=== PATIENT | male | born 1950 | race African-American/Black ===

== ENCOUNTER 2016-04-16 03:11 | Emergency (ER) | payer SELFPAY ==
[~2016-04-16] VITALS: Ht 170.2 cm; Wt 77.1 kg
[~2016-04-16 03:11] MED LIST: UNOBMED
[2016-04-16] MEDS ORDERED: GABAPENTIN300 MG ORAL (03:23)
--- NOTE | 2016-04-16 03:23 | Emergency Room Report ---
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 He said he takes [place] for his pain. He is homeless. Walking on the street and called 911. He told EMS that he has bilateral leg pain and his cold. Denies suicidal thought homicidal thought. Said that he take [place] but didn't have anything since this morning. No trauma. Pain is 10 out of 10. Bilateral lower extremity from hip to feet. Denies any nausea vomiting. Denies any trauma. Denies any fever or chills. Allergies: Coded Allergies: No Known Allergies (Unverified , 07/27/12) Patient History Past Medical History: see triage record, old chart reviewed Past Surgical History: other Pertinent Family History: none Social History: Reports: smoking Immunizations: other Reviewed Nursing Documentation: PMH: Agreed, PSxH: Agreed Review of Systems Eye: Denies: blurred vision, eye pain ENT: Denies: ear pain, nose congestion, throat swelling Respiratory: Denies: cough, shortness of breath Cardiovascular: Denies: chest pain, palpitations Gastrointestinal: Denies: abdominal pain, diarrhea, nausea, vomiting Musculoskeletal: Reports: joint pain, muscle pain, Denies: back pain Skin: Denies: rash Neurological: Denies: headache, numbness Endocrine: Denies: increased thirst, increased urine Hematologic/Lymphatic: Denies: easy bruising All Other Systems: negative except mentioned in HPI Physical Exam vitals unremarkable Sp02 EP Interpretation: reviewed, normal General Appearance: well appearing, no apparent distress, alert Head: normocephalic, atraumatic Eyes: bilateral eye EOMI, bilateral eye PERRL ENT: hearing grossly normal, normal pharynx Neck: full range of motion, supple, no meningismus Respiratory: chest non-tender, lungs clear, normal breath sounds Cardiovascular #1: regular rate, rhythm, no murmur Gastrointestinal: normal bowel sounds, non tender, no mass, no organomegaly, no bruit, non-distended Musculoskeletal: back normal, gait/station normal, normal range of motion Neurologic: alert, oriented x3 Psychiatric: mood/affect normal Skin: warm/dry Medical Decision Making Diagnostic Impression: Primary Impression: Peripheral neuropathy Qualified Codes: G62.9 - Polyneuropathy, unspecified Additional Impression: Opiate addiction Qualified Codes: F11.20 - Opioid dependence, uncomplicated ER Course Patient presents with exacerbation of chronic pain. No evidence of trauma. Patient walking without difficulty. We'll discharge home. Status: improved Disposition: HOME, SELF-CARE Condition: Stable Scripts Gabapentin* (GABAPENTIN*) 300 Mg Capsule 300 MG ORAL THREE TIMES A DAY, #30 CAP 0 Refills Prov: JACOB SANFORD M.D. 04/16/16 Additional Instructions: Followup with your Dr. in 7 days. Return if symptom worsen. JACOB SANFORD M.D. Apr 16, 2016 03:23
[2016-04-16] MEDS ORDERED: Norco 5mg/325mg tab ORAL ONE (03:30)
[2016-04-16 03:47] VITALS: BP 142/72
[2016-04-16 03:48] VITALS: BP 142/72
== END 2016-04-16 03:51 | disposition home or self-care (01) ==
LOC: EDUNIT# 03:11 → EDBD 03:11 → EMR 03:18
DX: G62.9 Polyneuropathy, unspecified (principal); F11.20 Opioid dependence, uncomplicated; F17.200 Nicotine dependence, unspecified, uncomplicated; Z59.0 Homelessness
CPT/HCPCS: 99283

== ENCOUNTER 2016-08-22 09:56 | Inpatient (IN) | payer MEDICARE, OTHER ==
[~2016-08-22] VITALS: Ht 170.2 cm; Wt 81.2 kg
[2016-08-22] VITALS (7 sets, daily range): BP systolic 114–162; BP diastolic 42–71
[~2016-08-22 09:56] MED LIST changes: +GABAPENTIN300 MG ORAL; +NKM
[2016-08-22] MEDS ORDERED: Cefepime HCl 1 GM in NS 55 ML IV STA (10:04)
[2016-08-22] MEDS ORDERED: Vancomycin 1 GM in NS 275 ML IV ONE (10:15)
[2016-08-22] MEDS ORDERED: Lidocaine 1% MPF 10mg/ml 5ml INJ ONE (10:15)
--- NOTE | 2016-08-22 10:31 | Emergency Room Report ---
History of Present Illness General Chief Complaint: Upper Extremity Injury Source: Patient, EMS Present Illness HPI Patient presents with right middle finger pain. This began several days ago. He thinks he might have gotten bitten by a bug. Denies any fevers or chills. Pain is severe and radiates somewhat into his hand. The finger is deformed it is unable to bend it much at this time. Denies any diabetes or any other chronic medical problems. He does drink alcohol occasionally. He states his tetanus was last given one year ago. No drainage. States no numbness. No trauma. He denies other pain in his body to me, but reports chronic hip pain from arthritis. No chest pain, NVD, head ache, dysuria. No other skin rashes. Blind in R eye. Allergies: Coded Allergies: No Known Allergies (Unverified , 07/27/12) Patient History Past Medical History: see triage record Social History: Reports: alcohol use Social History Narrative on streets, but has family in [place] Immunizations: UTD Reviewed Nursing Documentation: PMH: Agreed, PSxH: Agreed Nursing Documentation-PMH Hx Neurological Problems: Yes - Neuropathy, OS blindness 1995 Review of Systems All Other Systems: negative except mentioned in HPI Physical Exam Vital Signs Date Time Temp Pulse Resp B/P Pulse Ox O2 Delivery O2 Flow Rate FiO2 08/22/16 09:46 97.7 72 16 171/62 97 Sp02 EP Interpretation: reviewed, normal General Appearance: no apparent distress, GCS 15, other - dishevelled Head: normocephalic Eyes: right eye other - cataract deformity, bilateral eye Scleral Injection ENT: moist mucus membranes Neck: supple Respiratory: lungs clear, normal breath sounds Cardiovascular #1: regular rate, rhythm Cardiovascular #2: 2+ radial (R) Gastrointestinal: normal inspection, normal bowel sounds, non tender, no mass, non-distended Musculoskeletal: back normal, gait/station normal, normal range of motion - except for middle and ring fingers of R hand - DJD ring finger, swelling - middle finger most prominent dorsally, no pulp tenderness Neurologic: alert, oriented x3, motor strength/tone normal, DTRs symmetric, sensory intact, speech normal Psychiatric: depressed affect Skin: warm/dry, other - abscess formation R middle finger dorsally, but also under nail Procedures Incision and Drainage Incision and Drainage : Consent: Written Blade Size: scissors to remove nail I & D Procedure: betadine prep, sterile drapes applied, sterile dressing applied, gauze wick placed Wound's Depth, Shape: superficial - and under nail Wound Explored: contaminated Anesthesia: 1% Lidocaine Volume Anesthetic (ccs): 5 Splint Applied?: No Patient Tolerated: Well Complications: None Progress Digital block after Betadine prep of finger (previously cleaned by RN also). Incised under nail with pus expressed (nail completely undermined but infection and removed). Irrigated with copious NS under dorsal tissue. Drain placed. Tolerated well. Concern over dorsal tissue possibly devitalized by infection. Medical Decision Making Diagnostic Impression: Primary Impression: Abscess cellulitis of R middle finger Additional Impression: Abscess of finger of right hand ER Course Patient with R middle finger pain. Ddx: abscess, cellulitis, felon, paronychia , osteomyelitis, tendon infection. Exam somewhat against latter, though difficult to tell with pain in finger. Significant infection which needs drainage. Labs needed to r/o co-morbidities. Xray also ordered. IV antibiotics indicated. I and D performed. Labs significant for low WBC and ESR. Lactate normal. Xray without obvious osteo. Rest unremarkable. Contact hand surgeons. Also discussed with Dr. Curtis initially, then Dr. Ventura. Admit med, Dr. Ventura. Laboratory Tests Test 08/22/16 10:30 08/23/16 06:05 White Blood Count 6.5 K/UL (4.8-10.8) 4.3 K/UL (4.8-10.8) L Red Blood Count 4.82 M/UL (4.70-6.10) 4.66 M/UL (4.70-6.10) L Hemoglobin 11.6 G/DL (14.2-18.0) L 11.4 G/DL (14.2-18.0) L Hematocrit 37.4 % (42.0-52.0) L 35.4 % (42.0-52.0) L Mean Corpuscular Volume 78 FL (80-99) L 76 FL (80-99) L Mean Corpuscular Hemoglobin 24.1 PG (27.0-31.0) L 24.4 PG (27.0-31.0) L Mean Corpuscular Hemoglobin Concent 31.0 G/DL (32.0-36.0) L 32.1 G/DL (32.0-36.0) Red Cell Distribution Width 16.3 % (11.6-14.8) H 16.3 % (11.6-14.8) H Platelet Count 172 K/UL (150-450) 188 K/UL (150-450) Mean Platelet Volume 6.9 FL (6.5-10.1) 7.5 FL (6.5-10.1) Neutrophils (%) (Auto) 63.6 % (45.0-75.0) 51.4 % (45.0-75.0) Lymphocytes (%) (Auto) 19.9 % (20.0-45.0) L 31.5 % (20.0-45.0) Monocytes (%) (Auto) 15.2 % (1.0-10.0) H 15.8 % (1.0-10.0) H Eosinophils (%) (Auto) 0.5 % (0.0-3.0) 0.6 % (0.0-3.0) Basophils (%) (Auto) 0.9 % (0.0-2.0) 0.7 % (0.0-2.0) Erythrocyte Sedimentation Rate 12 MM/HR (0-20) Prothrombin Time 9.9 SEC (9.30-11.50) Prothrombin Time INR 0.9 (0.9-1.1) PTT 30 SEC (23-33) Urine Color Pale yellow Urine Appearance Clear Urine pH 5 (4.5-8.0) Urine Specific [place] 1.020 (1.005-1.035) Urine Protein Negative (NEGATIVE) Urine Glucose (UA) Negative (NEGATIVE) Urine Ketones Negative (NEGATIVE) Urine Occult Blood Negative (NEGATIVE) Urine Nitrite Negative (NEGATIVE) Urine Bilirubin Negative (NEGATIVE) Urine Urobilinogen Normal MG/DL (0.0-1.0) Urine Leukocyte Esterase Negative (NEGATIVE) Sodium Level 137 mEQ/L (135-145) Pending Potassium Level 3.7 mEQ/L (3.4-4.9) Pending Chloride Level 96 mEQ/L (98-107) L Pending Carbon Dioxide Level 24 mEQ/L (20-30) Pending Anion Gap 17 (5-15) H Blood Urea Nitrogen 19 mg/dL (7-23) Pending Creatinine 1.0 mg/dL (0.7-1.2) Pending Estimate Glomerular Filtration Rate > 60 mL/min (>60) Pending Glucose Level 98 mg/dL (74-106) Pending Lactic Acid Level 1.30 mmol/L (0.66-2.22) Calcium Level 8.8 mg/dL (8.6-10.2) Pending Total Bilirubin 0.3 mg/dL (0.0-1.2) Pending Aspartate Amino Transferase (AST) 48 U/L (5-40) H Pending Alanine Aminotransferase (ALT) 58 U/L (3-41) H Pending Alkaline Phosphatase 72 U/L (40-129) Pending Total Creatine Kinase 154 U/L (38-174) Troponin I < 0.30 ng/mL (<=0.30) Total Protein 7.9 g/dL (6.6-8.7) Pending Albumin 4.0 g/dL (3.5-5.2) Pending Globulin 3.9 g/dL Pending Albumin/Globulin Ratio 1.0 (1.0-2.7) EKG Diagnostic Results Rate: normal Rhythm: NSR ST Segments: no acute changes - LVH Rhythm Strip Diag. Results EP Interpretation: yes Rhythm: NSR, no PVC's, no ectopy Chest X-Ray Diagnostic Results Chest X-Ray Ordered: Yes # of Views/Limited/Complete: 1 View Interpretation: no consolidation, no effusion, no pneumothorax, no acute cardiopulmonary disease Indication: Other Impression: No acute disease Date Electronically Signed: Aug 22, 2016 Time Electronically Signed: 11:00 Other X-Ray Diagnostic Results # of Views/Limited Vs Complete: 3 View Interpretation: no fractures, no dislocation, other - STA and DJD Indication: Pain Impression: Other Date Electronically Signed: Aug 22, 2016 Time Electronically Signed: 11:00 Last Vital Signs Date Time Temp Pulse Resp B/P Pulse Ox O2 Delivery O2 Flow Rate FiO2 08/22/16 09:46 97.7 72 16 171/62 97 Status: improved Disposition: ADMITTED INPATIENT Condition: Serious Michael Badillo M.D. Aug 22, 2016 10:31
[2016-08-22 10:41] LABS: BASOPHILS % (AUTO) 0.9 % (0.0-2.0); EOSINOPHILS % (AUTO) 0.5 % (0.0-3.0); LYMPHOCYTES % (AUTO) 19.9 % (20.0-45.0); MEAN CORPUSCULAR HEMOGLOBIN 24.1 PG (27.0-31.0); MEAN CORPUSCULAR VOLUME 78 FL (80-99); MEAN PLATELET VOLUME 6.9 FL (6.5-10.1); MONOCYTES % (AUTO) 15.2 % (1.0-10.0); NEUTROPHILS % (AUTO) 63.6 % (45.0-75.0); PLATELET COUNT 172 K/UL (150-450); RED BLOOD COUNT 4.82 M/UL (4.70-6.10); RED CELL DISTRIBUTION WIDTH 16.3 % (11.6-14.8); WHITE BLOOD COUNT 6.5 K/UL (4.8-10.8)
[2016-08-22 10:48] LABS: APPEARANCE,URINE CLEAR; KETONES,URINE NEGATIVE (NEGATIVE); LEUKOCYTE ESTERASE ,URINE NEGATIVE (NEGATIVE); NITRITE,URINE NEGATIVE (NEGATIVE); PH,URINE 5 (4.5-8.0); PROTEIN,URINE NEGATIVE (NEGATIVE); UROBILINOGEN,URINE NORMAL MG/DL (0.0-1.0)
[2016-08-22 10:49] LABS: INR 0.9 (0.9-1.1); PROTHROMBIN TIME 9.9 SEC (9.30-11.50)
[2016-08-22] MEDS: metroNIDAZOLE 500mg 100 ML IV SCH ×2 (10:53→11:12)
[2016-08-22 10:54] LABS: ALANINE AMINOTRANSFERASE 58 U/L (3-41); ANION GAP 17 (5-15); ASPARTATE AMINO TRANSFERASE 48 U/L (5-40); CALCIUM 8.8 mg/dL (8.6-10.2); CARBON DIOXIDE 24 mEQ/L (20-30); CHLORIDE 96 mEQ/L (98-107); GLOMERULAR FILTRATION RATE > 60 mL/min (>60); HEMOLYSIS 4; POTASSIUM 3.7 mEQ/L (3.4-4.9); SODIUM 137 mEQ/L (135-145); TOTAL PROTEIN 7.9 g/dL (6.6-8.7); TROPONIN I < 0.30 ng/mL (<=0.30)
[2016-08-22] MEDS ORDERED: Vancomycin 1gm inj IVPB ONE (12:14)
[2016-08-22] MEDS ORDERED: Cefepime 1gm vial ONE (14:25)
--- NOTE | 2016-08-22 15:01 | Diagnostic Imaging Report ---
Indication: Chest pain Technique: One view of the chest Comparison: none Findings: The heart is borderline enlarged. There is mild interstitial congestion. Lungs and pleural spaces are otherwise clear. Impression: Cardiomegaly. Borderline interstitial congestion-correlate with clinical findings
--- NOTE | 2016-08-22 15:29 | Diagnostic Imaging Report ---
Indication: Right hand pain and swelling Technique: 3 views right hand Comparison: none Findings: The bones are osteoporotic. There is soft tissue swelling of the third digit, without definite underlying acute bony abnormality. There is markedly abnormal fourth proximal interphalangeal joint., With deformity of the fourth proximal phalangeal head and fourth middle phalangeal base. The joint is not well demonstrated. There may be partial ankylosis of the joint, but this cannot be stated with any certainty. No other evidence of acute fracture or dislocation. The joint spaces are preserved. Impression: Abnormal fourth proximal phalangeal joint. Uncertain as whether this represents acute posttraumatic change, chronic posttraumatic change, or chronic arthritic changes. Correlate with clinical findings, consider dedicated finger radiographs for better characterization if clinically indicated. Mild soft tissue swelling of the third digit. Per discussion with referring physician, this correlates with findings. No underlying bony abnormality Osteoporotic change
[2016-08-22] MEDS ORDERED: DuoNeb 0.5-3(2.5)mg/3ml neb HHN PRN (16:00)
[2016-08-22] MEDS ORDERED: Nitroglycerin Subl 0.4mg tab (Bottle Of 25) SL PRN (16:00)
[2016-08-22] MEDS ORDERED: Miralax 17gm pkt ORAL PRN (16:00)
--- NOTE | 2016-08-22 16:38 | Infectious Diseases Prog Note ---
Assessment/Plan Problems: (1) Abscess of finger of right hand Assessment & Plan: S/P I&D continue vancomycin with cefepime empirically , pending culture result (2) Cellulitis Assessment & Plan: of the right hand, continue wide spectrum antibiotics pending culture results Subjective Allergies: Coded Allergies: No Known Allergies (Unverified , 07/27/12) Objective Vital Signs Last 24 Hour Vital Signs Date Time Temp Pulse Resp B/P Pulse Ox O2 Delivery O2 Flow Rate FiO2 08/22/16 16:16 97.8 75 20 143/61 100 Room Air 08/22/16 16:11 85 20 143/61 100 Room Air 08/22/16 14:38 76 20 129/64 100 Room Air 08/22/16 13:24 73 20 114/42 100 Room Air 08/22/16 12:35 68 20 127/53 100 Room Air 08/22/16 11:46 61 20 161/60 100 Room Air 08/22/16 11:00 66 16 162/71 99 Room Air 08/22/16 10:35 97.8 08/22/16 09:46 97.7 72 16 171/62 97 Height (Feet): 5 Height (Inches): 7.00 Weight (Pounds): 180 Laboratory Tests Test 08/22/16 10:30 White Blood Count 6.5 K/UL (4.8-10.8) Red Blood Count 4.82 M/UL (4.70-6.10) Hemoglobin 11.6 G/DL (14.2-18.0) L Hematocrit 37.4 % (42.0-52.0) L Mean Corpuscular Volume 78 FL (80-99) L Mean Corpuscular Hemoglobin 24.1 PG (27.0-31.0) L Mean Corpuscular Hemoglobin Concent 31.0 G/DL (32.0-36.0) L Red Cell Distribution Width 16.3 % (11.6-14.8) H Platelet Count 172 K/UL (150-450) Mean Platelet Volume 6.9 FL (6.5-10.1) Neutrophils (%) (Auto) 63.6 % (45.0-75.0) Lymphocytes (%) (Auto) 19.9 % (20.0-45.0) L Monocytes (%) (Auto) 15.2 % (1.0-10.0) H Eosinophils (%) (Auto) 0.5 % (0.0-3.0) Basophils (%) (Auto) 0.9 % (0.0-2.0) Prothrombin Time 9.9 SEC (9.30-11.50) Prothromb Time International Ratio 0.9 (0.9-1.1) Activated Partial Thromboplast Time 30 SEC (23-33) Urine Color Pale yellow Urine Appearance Clear Urine pH 5 (4.5-8.0) Urine Specific [place] 1.020 (1.005-1.035) Urine Protein Negative (NEGATIVE) Urine Glucose (UA) Negative (NEGATIVE) Urine Ketones Negative (NEGATIVE) Urine Occult Blood Negative (NEGATIVE) Urine Nitrite Negative (NEGATIVE) Urine Bilirubin Negative (NEGATIVE) Urine Urobilinogen Normal MG/DL (0.0-1.0) Urine Leukocyte Esterase Negative (NEGATIVE) Sodium Level 137 mEQ/L (135-145) Potassium Level 3.7 mEQ/L (3.4-4.9) Chloride Level 96 mEQ/L (98-107) L Carbon Dioxide Level 24 mEQ/L (20-30) Anion Gap 17 (5-15) H Blood Urea Nitrogen 19 mg/dL (7-23) Creatinine 1.0 mg/dL (0.7-1.2) Estimat Glomerular Filtration Rate > 60 mL/min (>60) Glucose Level 98 mg/dL (74-106) Lactic Acid Level 1.30 mmol/L (0.66-2.22) Calcium Level 8.8 mg/dL (8.6-10.2) Total Bilirubin 0.3 mg/dL (0.0-1.2) Aspartate Amino Transf (AST/SGOT) 48 U/L (5-40) H Alanine Aminotransferase (ALT/SGPT) 58 U/L (3-41) H Alkaline Phosphatase 72 U/L (40-129) Total Creatine Kinase 154 U/L (38-174) Troponin I < 0.30 ng/mL (<=0.30) Total Protein 7.9 g/dL (6.6-8.7) Albumin 4.0 g/dL (3.5-5.2) Globulin 3.9 g/dL Albumin/Globulin Ratio 1.0 (1.0-2.7) Current Medications Medications (Trade) Dose Ordered Sig/Lisa Route PRN Reason Start Time Stop Time Status Last Admin Dose Admin Acetaminophen (Tylenol) 650 mg Q4H PRN ORAL fever 08/22/16 16:00 09/21/16 15:59 UNV Albuterol/ Ipratropium 3 ml 3 ml EVERY 4 HOURS PRN HHN Shortness of Breath 08/22/16 16:00 08/27/16 15:59 UNV Cefepime HCl 2 gm/ Dextrose 110 ml @ 220 mls/hr EVERY 12 HOURS IV 08/22/16 21:00 08/29/16 20:59 UNV Dextrose (Dextrose 50%) STAT PRN IV Hypoglycemia 08/22/16 16:00 09/21/16 15:59 UNV Gabapentin (Neurontin) 300 mg THREE TIMES A DAY ORAL 08/22/16 18:00 09/21/16 17:59 UNV Heparin Sodium (Porcine) (Heparin 5000 units/ml) 5,000 units EVERY 12 HOURS SUBQ 08/22/16 21:00 09/21/16 20:59 UNV Insulin Aspart (NovoLOG) BEFORE MEALS AND HS SUBQ 08/22/16 16:30 09/21/16 16:29 UNV Metronidazole (Flagyl) 100 ml @ 100 mls/hr Q8H IV 08/22/16 10:15 08/23/16 10:14 08/22/16 11:12 Morphine Sulfate (Morphine Sulfate) 2 mg EVERY 4 HOURS PRN IVP Moderate Pain (Pain Scale 4-6) 08/22/16 16:00 08/29/16 15:59 UNV Nitroglycerin (Ntg) 0.4 mg Every 5 Minutes PRN SL Prn Chest Pain 08/22/16 16:00 09/21/16 15:59 UNV Ondansetron HCl (Zofran) 4 mg Q6H PRN IVP Nausea & Vomiting 08/22/16 16:00 09/21/16 15:59 UNV Polyethylene Glycol (Miralax) 17 gm DAILYPRN PRN ORAL Constipation 08/22/16 16:00 09/21/16 15:59 UNV Temazepam (Restoril) 15 mg HSPRN PRN ORAL Insomnia 08/22/16 16:00 08/29/16 15:59 UNV Vancomycin HCl/ Dextrose (Vancomycin/D5W) 275 ml @ 183.3 mls/ hr Q24H IV 08/23/16 00:30 08/28/16 00:29 Julio Rosado M.D. Aug 22, 2016 16:38
[2016-08-22] MEDS: Vancomycin 1 GM in D5W 275 ML IVPB SCH (18:20)
[2016-08-22] MEDS: NovoLOG Insulin Flexpen SUBQ SCH (20:30)
[2016-08-22] MEDS: Heparin 5000 units/ml inj SUBQ SCH (20:43)
[2016-08-22] MEDS: Cefepime HCl 2 GM in D5W 110 ML IV SCH (22:34)
[2016-08-23] VITALS: BP 129/60
[2016-08-23 04:00] VITALS: BP 128/60
[2016-08-23] MEDS: NovoLOG Insulin Flexpen SUBQ SCH ×4 (05:34→21:00)
[2016-08-23] MEDS: Vancomycin 1 GM in D5W 275 ML IVPB SCH ×2 (05:39→17:44)
[2016-08-23 07:03] LABS: BASOPHILS % (AUTO) 0.7 % (0.0-2.0); EOSINOPHILS % (AUTO) 0.6 % (0.0-3.0); LYMPHOCYTES % (AUTO) 31.5 % (20.0-45.0); MEAN CORPUSCULAR HEMOGLOBIN 24.4 PG (27.0-31.0); MEAN CORPUSCULAR HGB CONC 32.1 G/DL (32.0-36.0); MEAN CORPUSCULAR VOLUME 76 FL (80-99); MEAN PLATELET VOLUME 7.5 FL (6.5-10.1); MONOCYTES % (AUTO) 15.8 % (1.0-10.0); NEUTROPHILS % (AUTO) 51.4 % (45.0-75.0); PLATELET COUNT 188 K/UL (150-450); RED BLOOD COUNT 4.66 M/UL (4.70-6.10); RED CELL DISTRIBUTION WIDTH 16.3 % (11.6-14.8); WHITE BLOOD COUNT 4.3 K/UL (4.8-10.8)
[2016-08-23 07:14] LABS: ALANINE AMINOTRANSFERASE 45 U/L (3-41); ALBUMIN/GLOBULIN RATIO 0.9 (1.0-2.7); ANION GAP 12 (5-15); ASPARTATE AMINO TRANSFERASE 36 U/L (5-40); CALCIUM 8.7 mg/dL (8.6-10.2); CARBON DIOXIDE 25 mEQ/L (20-30); CHLORIDE 105 mEQ/L (98-107); GLOMERULAR FILTRATION RATE > 60 mL/min (>60); HEMOLYSIS 3; POTASSIUM 3.9 mEQ/L (3.4-4.9); SODIUM 142 mEQ/L (135-145); TOTAL PROTEIN 6.8 g/dL (6.6-8.7)
[2016-08-23] MEDS: Cefepime HCl 2 GM in D5W 110 ML IV SCH (08:15)
[2016-08-23] MEDS: Heparin 5000 units/ml inj SUBQ SCH ×2 (08:16→21:00)
[2016-08-23 08:28] VITALS: BP 135/64
[2016-08-23 11:51] VITALS: BP 136/69
--- NOTE | 2016-08-23 12:10 | Consultation ---
Consult Note Consult Note ID Dic# [id number] YOSVANY LANTIGUA M.D. Aug 23, 2016 12:10
[2016-08-23] MEDS: Piperacillin/Tazobactam 3.375 GM in D5W 110 ML IVPB SCH ×2 (14:00→22:00)
--- NOTE | 2016-08-23 14:57 | Diagnostic Imaging Report ---
Indication: Infected right middle finger Technique: Axial, sagittal, and coronal T1 and STIR images of the right hand Comparison: Plain radiograph 08/22/2016 Findings: There is circumferential edema of the soft tissues of the third digit, particularly proximally. There is also dorsal edema of the and, predominantly in the subcutaneous fat and also surrounding the extensor tendons. There is abnormal increased STIR signal and abnormal decreased T1 signal in the distal phalanx of the third digit. The proximal and middle phalanges demonstrate normal marrow signal. The fourth digit demonstrates unusual deformity, with anterior dislocation of the middle phalanx on the proximal phalanx. There is an intermediate to low signal area anterior to and possibly eroding the anterior fourth proximal phalangeal neck as well as the posterior base of the middle phalanx. There is minimal increased STIR signal in the distal proximal phalanx and at the base of the middle phalanx. The remainder of the fourth digit is unremarkable. There is increased STIR signal in the distal two thirds of the first metacarpal. There is slight subluxation of the first metacarpophalangeal joint and a small joint effusion. There is abnormal STIR signal involving all but the head of the first proximal phalanx. There is normal T1 signal. No other signal abnormalities are demonstrated. Impression: Abnormal T1 and STIR signal involving the third distal phalanx. This is suspicious for acute osteomyelitis. There is evidence of soft tissue edema, possibly cellulitis, involving the third finger circumferentially as well as the dorsum of the hand. No drainable abscess demonstrated Evidence of anterior dislocation of the fourth proximal interphalangeal joint. Erosive changes and some abnormal soft tissue proliferation probably indicate chronicity Evidence of degenerative arthropathy, small joint effusion, slight subluxation of the first metacarpophalangeal joint. There is considerable STIR signal abnormality of the first metacarpal and the first proximal phalanx, without corresponding T1 signal abnormality. There is mild soft tissue edema of the first digit. The marrow signal is probably reactive secondary to the joint arthropathy or stranding soft tissue inflammation, but early osteomyelitis changes cannot be completely ruled out.
--- NOTE | 2016-08-23 15:50 | History and Physical ---
History of Present Illness General Date patient seen: Aug 23, 2016 Reason for Hospitalization: Upper Extremity Injury Present Illness HPI 65 year old male with hx of right eye blindness, neuropathy, presents with right middle finger pain bitten by a bug a few days ago. Denies any fevers or chills. Pain is severe and radiates somewhat into his hand. The finger is deformed it is unable to bend it much at this time. He was diagnosed to have an abscess and it was drained by the ER Physician. Pt is admitted for further management. Allergies: Coded Allergies: No Known Allergies (Unverified , 07/27/12) Medication History Scheduled Gabapentin* (Gabapentin*), 300 MG ORAL THREE TIMES A DAY No Known Medications* (NKM - No Known Medications*), 0 ., (Reported) Miscellaneous Medications Unable to Obtain Medications (Unable To Obtain Meds), (Reported) Patient History Healthcare decision maker Resuscitation status Full Code Advanced Directive on File Past Medical/Surgical History Past Medical/Surgical History: (1) Blindness (2) Neuropathy Review of Systems All Other Systems: negative except mentioned in HPI Physical Exam General Appearance: WD/WN, no apparent distress Lines, tubes and drains: peripheral HEENT: normocephalic, atraumatic Neck: non-tender, normal alignment Respiratory/Chest: chest wall non-tender, lungs clear Abdomen: normal bowel sounds, non tender Genitourinary/Rectal: normal genital exam Extremities: non-tender Skin Exam: normal pigmentation Last 24 Hour Vital Signs Date Time Temp Pulse Resp B/P Pulse Ox O2 Delivery O2 Flow Rate FiO2 08/23/16 11:51 98.1 69 19 136/69 95 Room Air 08/23/16 08:28 98.9 71 21 135/64 96 Room Air 08/23/16 07:47 82 18 Room Air 08/23/16 04:00 98.6 73 18 128/60 96 Room Air 08/23/16 00:00 98.2 79 18 129/60 96 Room Air 08/22/16 20:00 65 20 Room Air 21 08/22/16 20:00 98.2 80 19 119/55 97 Nasal Cannula 08/22/16 16:16 97.8 75 20 143/61 100 Room Air 08/22/16 16:11 85 20 143/61 100 Room Air Intake and Output 08/22/16 08/23/16 19:00 07:00 Intake Total 1400 ml 968.3 ml Balance 1400 ml 968.3 ml Intake Oral 400 ml IV Total 1400 ml 568.3 ml # Voids 1 3 Laboratory Tests Test 08/23/16 06:05 White Blood Count 4.3 K/UL (4.8-10.8) L Red Blood Count 4.66 M/UL (4.70-6.10) L Hemoglobin 11.4 G/DL (14.2-18.0) L Hematocrit 35.4 % (42.0-52.0) L Mean Corpuscular Volume 76 FL (80-99) L Mean Corpuscular Hemoglobin 24.4 PG (27.0-31.0) L Mean Corpuscular Hemoglobin Concent 32.1 G/DL (32.0-36.0) Red Cell Distribution Width 16.3 % (11.6-14.8) H Platelet Count 188 K/UL (150-450) Mean Platelet Volume 7.5 FL (6.5-10.1) Neutrophils (%) (Auto) 51.4 % (45.0-75.0) Lymphocytes (%) (Auto) 31.5 % (20.0-45.0) Monocytes (%) (Auto) 15.8 % (1.0-10.0) H Eosinophils (%) (Auto) 0.6 % (0.0-3.0) Basophils (%) (Auto) 0.7 % (0.0-2.0) Sodium Level 142 mEQ/L (135-145) Potassium Level 3.9 mEQ/L (3.4-4.9) Chloride Level 105 mEQ/L (98-107) Carbon Dioxide Level 25 mEQ/L (20-30) Anion Gap 12 (5-15) Blood Urea Nitrogen 22 mg/dL (7-23) Creatinine 1.0 mg/dL (0.7-1.2) Estimat Glomerular Filtration Rate > 60 mL/min (>60) Glucose Level 127 mg/dL (74-106) H Calcium Level 8.7 mg/dL (8.6-10.2) Total Bilirubin 0.2 mg/dL (0.0-1.2) Aspartate Amino Transf (AST/SGOT) 36 U/L (5-40) Alanine Aminotransferase (ALT/SGPT) 45 U/L (3-41) H Alkaline Phosphatase 60 U/L (40-129) Total Protein 6.8 g/dL (6.6-8.7) Albumin 3.3 g/dL (3.5-5.2) L Globulin 3.5 g/dL Albumin/Globulin Ratio 0.9 (1.0-2.7) L Height (Feet): 5 Height (Inches): 7.00 Weight (Pounds): 179 Medications Current Medications Medications (Trade) Dose Ordered Sig/Lisa Route PRN Reason Start Time Stop Time Status Last Admin Dose Admin Acetaminophen (Tylenol) 650 mg Q4H PRN ORAL fever 08/22/16 16:00 09/21/16 15:59 Albuterol/ Ipratropium 3 ml 3 ml EVERY 4 HOURS PRN HHN Shortness of Breath 08/22/16 16:00 08/27/16 15:59 Dextrose STAT PRN IV Hypoglycemia 08/22/16 16:00 09/21/16 15:59 Gabapentin (Neurontin) 300 mg THREE TIMES A DAY ORAL 08/22/16 18:00 09/21/16 17:59 08/23/16 14:00 Heparin Sodium (Porcine) (Heparin 5000 units/ml) 5,000 units EVERY 12 HOURS SUBQ 08/22/16 21:00 09/21/16 20:59 08/23/16 08:16 Insulin Aspart (NovoLOG) BEFORE MEALS AND HS SUBQ 08/22/16 21:00 09/21/16 20:59 08/23/16 11:52 Morphine Sulfate (Morphine Sulfate) 2 mg EVERY 4 HOURS PRN IVP Moderate Pain (Pain Scale 4-6) 08/22/16 16:00 08/29/16 15:59 Nitroglycerin (Ntg) 0.4 mg Q5M PRN SL Prn Chest Pain 08/22/16 16:00 09/21/16 15:59 Ondansetron HCl (Zofran) 4 mg Q6H PRN IVP Nausea & Vomiting 08/22/16 16:00 09/21/16 15:59 Piperacillin Sod/ Tazobactam Sod/ Dextrose (Zosyn/D5W) 110 ml @ 27.5 mls/hr EVERY 8 HOURS IVPB 08/23/16 14:00 08/28/16 13:59 08/23/16 14:00 Polyethylene Glycol (Miralax) 17 gm DAILYPRN PRN ORAL Constipation 08/22/16 16:00 09/21/16 15:59 Temazepam (Restoril) 15 mg HSPRN PRN ORAL Insomnia 08/22/16 16:00 08/29/16 15:59 Vancomycin HCl (Vanco rx to dose) 1 ea DAILY PRN MISC PER RX PROTOCOL 08/23/16 12:30 09/22/16 12:29 Vancomycin HCl/ Dextrose (Vancomycin/D5W) 275 ml @ 183.3 mls/ hr Q12HR@0600,1800 IVPB 08/22/16 18:00 08/27/16 17:59 08/23/16 05:39 Assessment/Plan Problem List: (1) Cellulitis ICD Codes: L03.90 - Cellulitis, unspecified SNOMED: 538192871 (2) Abscess of finger of right hand ICD Codes: L02.511 - Cutaneous abscess of right hand SNOMED: 20524669 (3) Blindness ICD Codes: H54.0 - Blindness, both eyes SNOMED: 781686072 (4) Neuropathy ICD Codes: G62.9 - Polyneuropathy, unspecified SNOMED: 133531100 Assessment/Plan IV antibiotics wound care f/u cultures NASRA RICHMOND Aug 23, 2016 15:50
[2016-08-23 16:07] VITALS: BP 115/54
--- NOTE | 2016-08-23 16:39 | Cardiology Report ---
APPROVED REPORT EKG Measurement Heart [id number] Normal sinus rhythm Minimal voltage criteria for LVH, may be normal variant Borderline ECG
--- NOTE | 2016-08-23 17:45 | Consultation ---
DATE OF CONSULTATION: INFECTIOUS DISEASES CONSULT CONSULTING PHYSICIAN: Joe Soliman M.D. REQUESTING PHYSICIAN: Hayden Ventura M.D. REASON FOR CONSULTATION: Evaluation of the patient for possible osteomyelitis versus abscess of the right finger. HISTORY OF PRESENT ILLNESS: The patient is a 65-year-old male with multiple medical problems, who was admitted to this medical center due to right third finger swelling after reportedly was bitten by a bug. The patient was able to provide detailed information. The patient has some purulent discharge and an Infectious Diseases consultation has been requested for further evaluation of the patient for antibiotic treatment. PAST MEDICAL HISTORY: History of peripheral neuropathy. MEDICATIONS: Cefepime and vancomycin. ALLERGIES: No known drug allergies. SOCIAL HISTORY: Negative for alcohol abuse and smoking. REVIEW OF SYSTEMS: HEENT: No recent change in vision or hearing. Pulmonary: No cough or shortness of breath. Cardiovascular: No chest pain or palpitation. Gastrointestinal/Abdomen: No nausea or vomiting. Genitourinary: No dysuria. Musculoskeletal: As mentioned above. PHYSICAL EXAMINATION: VITAL SIGNS: Temperature 98.1 degrees, blood pressure 136/69, pulse is 56, and respiratory rate 18. HEENT: Mild pale conjunctiva. No icterus. NECK: No lymphadenopathy. CHEST: Coarse breath sounds. HEART: S1 and S2. ABDOMEN: Soft, obese, and nontender. EXTREMITIES: The patient has swelling and discoloration and some purulent discharge from the right middle finger. NEUROLOGIC: Awake. LABORATORY DATA: White blood cells 4.2, hemoglobin 11.4, and platelets 188,000. UA unremarkable. BUN 22 and creatinine 1.9. ALT, AST, and alkaline phosphatase were all unremarkable. Wound culture is growing gram positive rods and gram positive cocci. Cultures pending. An x-ray showed abnormal proximal interphalangeal joint. ASSESSMENT: The patient is a 65-year-old male with multiple medical problems, who has been admitted to this medical center for right third finger abscess/rule out osteomyelitis. PLAN: 1. We will continue the patient on vancomycin and change cefepime to Zosyn. 2. Monitor CBC. 3. Monitor BMP. 4. Monitor wound culture. 5. MRI of the right hand to rule out osteomyelitis. 6. Based on the patient's clinical course and laboratories, we will do further recommendations. Also, recommend a surgical evaluation for further debridement. Thank you, Dr. Ventura, for allowing me to participate in the care of this patient. I will follow the patient with you during this hospitalization. Joe Soliman M.D. DR: DENZEL JOB#: [id number] CC:
--- NOTE | 2016-08-23 19:37 | Consultation ---
Consult Note Consult Note Podiatry consult was placed for osteomyelitis of the foot. However, consult may have been placed in error since the patient was admitted for osteomyelitis of the hand and he does not have any open wounds of the foot. Chetan Osuna DPM Aug 23, 2016 19:37
[2016-08-23 20:00] VITALS: BP 125/59
[2016-08-24] VITALS: BP 113/52
[2016-08-24 04:00] VITALS: BP 110/56
[2016-08-24] MEDS: Piperacillin/Tazobactam 3.375 GM in D5W 110 ML IVPB SCH ×2 (05:45→14:11)
[2016-08-24] MEDS: NovoLOG Insulin Flexpen SUBQ SCH ×4 (06:00→21:00)
[2016-08-24 08:34] VITALS: BP 131/62
--- NOTE | 2016-08-24 08:39 | Wound Care Consultation ---
Wound Assessment Wound Assessment : Wound Present on Admission: Yes New Wound: No Status Change of Wound: No Wound Location Body Site Modif: right Wound Location Body Site: finger - middle Wound Type: abscess - s/p incision and drainage. Omi Test: Does not Omi Wound Thickness: Full Thickness Wound Length: 5.5 Wound Width: 2.0 Wound Depth: utd Percent of Wound [place]/Red: 80 Percent of Wound Bed Yellow/Wh: 20 Other Colors Identified: noted gonzalez color boggy feel to finger with purulent drainage. Wound Drainage Description: Serosanguineous - purulent. Wound Drainage Amount: Moderate Wound Drainage Odor: None/Absent Tissue Surrounding Wound: Edematous Wound General Appearance: Reddened, Draining Wound Comment #1 right middle finger abscess s/p I&D. Recommendation. -Local wound as ordered per MD . Right middle finger s/p I&D Cleanse with normal saline, pat dry , lightly pack with 1/4 iodoform packing strip, cover with 4x4 gauze dry dressing lightly, secure with tape DAILY and PRN if soiled/dislodged. -Turn and reposition. -keep clean and dry. -Optimize nutrition. -Offload affected site. -Assess and notify MD for any further changes of condition to skin noted. JAMAL STARK Aug 24, 2016 08:39
[2016-08-24] MEDS: Heparin 5000 units/ml inj SUBQ SCH ×2 (08:40→21:00)
[2016-08-24] MEDS: Vancomycin 1250mg in D5W 275ml IVPB SCH ×2 (10:39→21:37)
[2016-08-24 12:18] VITALS: BP 134/74
--- NOTE | 2016-08-24 15:08 | Pulmonology Progress Note ---
Assessment/Plan Problems: (1) Cellulitis (2) Abscess of finger of right hand (3) Blindness (4) Neuropathy Assessment/Plan MRI: Abnormal T1 and STIR signal involving the third distal phalanx. This is suspicious for acute osteomyelitis. abx as per ID, surgical evaluation for further debridement check electrolytes and wbc Subjective Constitutional: Reports: no symptoms HEENT: Repors: no symptoms Respiratory: Reports: no symptoms Cardiovascular: Reports: no symptoms Allergies: Coded Allergies: No Known Allergies (Unverified , 07/27/12) Objective Last 24 Hour Vital Signs Date Time Temp Pulse Resp B/P Pulse Ox O2 Delivery O2 Flow Rate FiO2 08/24/16 12:18 97.5 67 15 134/74 97 Room Air 08/24/16 08:34 97.6 79 18 131/62 97 Room Air 08/24/16 07:31 74 20 Room Air 08/24/16 04:00 97.8 66 19 110/56 94 Nasal Cannula 08/24/16 00:00 97.8 70 18 113/52 96 Nasal Cannula 08/23/16 20:02 68 20 Room Air 08/23/16 20:00 97.3 68 18 125/59 94 Room Air 08/23/16 16:07 97.9 61 20 115/54 96 Room Air Intake and Output 08/23/16 08/24/16 19:00 07:00 Intake Total 1171.7 ml 137.5 ml Output Total 1750 ml Balance -578.3 ml 137.5 ml Intake Oral 1080 ml IV Total 91.7 ml 137.5 ml Output Urine Total 1750 ml # Voids 7 General Appearance: WD/WN HEENT: normocephalic, atraumatic Respiratory/Chest: chest wall non-tender, lungs clear Cardiovascular: normal peripheral pulses, regular rhythm Abdomen: soft, non tender, no scars Genitourinary: normal external genitalia 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 Complete 08/22/16 13:12 Rectum VRE Culture - Final NO VANCOMYCIN RESISTANT ENTEROCOCCUS ... Complete 08/22/16 13:07 Finger Right Middle Gram Stain - Final Resulted 08/22/16 13:07 Wound Culture - Preliminary Enterobacter Aerogenes Usual Skin Mimi Resulted Laboratory Tests 08/23/16 17:00: Vancomycin Level Trough 11.1 Current Medications Medications (Trade) Dose Ordered Sig/Lisa Route PRN Reason Start Time Stop Time Status Last Admin Dose Admin Acetaminophen (Tylenol) 650 mg Q4H PRN ORAL fever 08/22/16 16:00 09/21/16 15:59 Albuterol/ Ipratropium (DuoNeb 0.5-3(2.5)mg/3ml) 3 ml EVERY 4 HOURS PRN HHN Shortness of Breath 08/22/16 16:00 08/27/16 15:59 Dextrose STAT PRN IV Hypoglycemia 08/22/16 16:00 09/21/16 15:59 Gabapentin (Neurontin) 300 mg THREE TIMES A DAY ORAL 08/22/16 18:00 09/21/16 17:59 08/24/16 13:27 Heparin Sodium (Porcine) (Heparin 5000 units/ml) 5,000 units EVERY 12 HOURS SUBQ 08/22/16 21:00 09/21/16 20:59 08/24/16 08:40 Insulin Aspart (NovoLOG) BEFORE MEALS AND HS SUBQ 08/22/16 21:00 09/21/16 20:59 08/23/16 11:52 Morphine Sulfate (Morphine Sulfate) 2 mg EVERY 4 HOURS PRN IVP Moderate Pain (Pain Scale 4-6) 08/22/16 16:00 08/29/16 15:59 Nitroglycerin (Ntg) 0.4 mg Q5M PRN SL Prn Chest Pain 08/22/16 16:00 09/21/16 15:59 Ondansetron HCl (Zofran) 4 mg Q6H PRN IVP Nausea & Vomiting 08/22/16 16:00 09/21/16 15:59 Piperacillin Sod/ Tazobactam Sod/ Dextrose (Zosyn/D5W) 110 ml @ 27.5 mls/hr EVERY 8 HOURS IVPB 08/23/16 14:00 08/28/16 13:59 08/24/16 14:11 Polyethylene Glycol (Miralax) 17 gm DAILYPRN PRN ORAL Constipation 08/22/16 16:00 7/20/17 15:59 Temazepam (Restoril) 15 mg HSPRN PRN ORAL Insomnia 08/22/16 16:00 08/29/16 15:59 Vancomycin HCl 1 ea 1 ea DAILY PRN MISC PER RX PROTOCOL 08/23/16 12:30 09/22/16 12:29 Vancomycin HCl/ Dextrose (Vancomycin/D5W) 275 ml @ 183.708 mls/hr Q12HR IVPB 08/24/16 09:00 08/29/16 08:59 08/24/16 10:39 NASRA RICHMOND Aug 24, 2016 15:08
[2016-08-24 16:02] VITALS: BP 123/65
[2016-08-24] MEDS ORDERED: NS 275ml ONE (17:28)
[2016-08-24] MEDS ORDERED: Tubing IV Secondary IV ONE (17:28)
--- NOTE | 2016-08-24 18:15 | Infectious Diseases Prog Note ---
Assessment/Plan Assessment/Plan A: he patient is a 65-year-old male with Abscess / osteomyelitis. of the right 3rd finger Wound culture : Enterobacter MRI : osteomyelitis + SP bug bite ? Peripheral neuropathy. PLAN: Continue the patient on vancomycin and change Zosyn to Cefepime ( AB Rx d# 2 ) Monitor CBC Monitor BMP. Monitor wound culture. PICC before DC Sx for I&D of abscess Subjective Constitutional: Denies: anorexia, chills, drenching sweats, fatigue, fever, no symptoms, other Allergies: Coded Allergies: No Known Allergies (Unverified , 07/27/12) Objective Vital Signs Last 24 Hour Vital Signs Date Time Temp Pulse Resp B/P Pulse Ox O2 Delivery O2 Flow Rate FiO2 08/24/16 16:02 97.3 73 15 123/65 96 Room Air 08/24/16 12:18 97.5 67 15 134/74 97 Room Air 08/24/16 08:34 97.6 79 18 131/62 97 Room Air 08/24/16 07:31 74 20 Room Air 08/24/16 04:00 97.8 66 19 110/56 94 Nasal Cannula 08/24/16 00:00 97.8 70 18 113/52 96 Nasal Cannula 08/23/16 20:02 68 20 Room Air 08/23/16 20:00 97.3 68 18 125/59 94 Room Air Height (Feet): 5 Height (Inches): 7.00 Weight (Pounds): 179 HEENT: anicteric Respiratory/Chest: normal breath sounds Cardiovascular: normal rate Abdomen: non distended Microbiology Date/Time Source Procedure Growth Status 08/22/16 10:30 Blood Blood Culture - Preliminary NO GROWTH AFTER 48 HOURS Resulted 08/22/16 10:15 Blood Blood Culture - Preliminary NO GROWTH AFTER 48 HOURS Resulted 08/22/16 13:12 Nasal Nares MRSA Culture - Final NO METHICILLIN RESISTANT STAPH AUREUS... Complete 08/22/16 13:12 Rectum VRE Culture - Final NO VANCOMYCIN RESISTANT ENTEROCOCCUS ... Complete 08/22/16 13:07 Finger Right Middle Gram Stain - Final Resulted 08/22/16 13:07 Wound Culture - Preliminary Enterobacter Aerogenes Usual Skin Mimi Resulted Current Medications Medications (Trade) Dose Ordered Sig/Lisa Route PRN Reason Start Time Stop Time Status Last Admin Dose Admin Acetaminophen (Tylenol) 650 mg Q4H PRN ORAL fever 08/22/16 16:00 09/21/16 15:59 Albuterol/ Ipratropium (DuoNeb 0.5-3(2.5)mg/3ml) 3 ml EVERY 4 HOURS PRN HHN Shortness of Breath 08/22/16 16:00 08/27/16 15:59 Dextrose STAT PRN IV Hypoglycemia 08/22/16 16:00 09/21/16 15:59 Gabapentin (Neurontin) 300 mg THREE TIMES A DAY ORAL 08/22/16 18:00 09/21/16 17:59 08/24/16 17:19 Heparin Sodium (Porcine) (Heparin 5000 units/ml) 5,000 units EVERY 12 HOURS SUBQ 08/22/16 21:00 09/21/16 20:59 08/24/16 08:40 Insulin Aspart (NovoLOG) BEFORE MEALS AND HS SUBQ 08/22/16 21:00 09/21/16 20:59 08/23/16 11:52 Morphine Sulfate (Morphine Sulfate) 2 mg EVERY 4 HOURS PRN IVP Moderate Pain (Pain Scale 4-6) 08/22/16 16:00 08/29/16 15:59 Nitroglycerin (Ntg) 0.4 mg Q5M PRN SL Prn Chest Pain 08/22/16 16:00 09/21/16 15:59 Ondansetron HCl (Zofran) 4 mg Q6H PRN IVP Nausea & Vomiting 08/22/16 16:00 09/21/16 15:59 Piperacillin Sod/ Tazobactam Sod/ Dextrose (Zosyn/D5W) 110 ml @ 27.5 mls/hr EVERY 8 HOURS IVPB 08/23/16 14:00 08/28/16 13:59 08/24/16 14:11 Polyethylene Glycol (Miralax) 17 gm DAILYPRN PRN ORAL Constipation 08/22/16 16:00 09/21/16 15:59 Temazepam (Restoril) 15 mg HSPRN PRN ORAL Insomnia 08/22/16 16:00 08/29/16 15:59 Vancomycin HCl 1 ea 1 ea DAILY PRN MISC PER RX PROTOCOL 08/23/16 12:30 09/22/16 12:29 Vancomycin HCl/ Dextrose (Vancomycin/D5W) 275 ml @ 183.708 mls/hr Q12HR IVPB 08/24/16 09:00 08/29/16 08:59 08/24/16 10:39 YOSVANY LANTIGUA M.D. Aug 24, 2016 18:15
[2016-08-24] MEDS: Morphine Sulfate 2mg/ml Inj IVP PRN ×2 (19:26→23:33)
--- NOTE | 2016-08-24 19:32 | Consultation ---
History of Present Illness General Date patient seen: Aug 24, 2016 Chief Complaint: Upper Extremity Injury Reason for Consultation: right middle finger infection Present Illness HPI 65M right middle 3rd finger infection. states that 4 days ago he sustained a bug bite to right third finger. since finger has become more swollen, red, painful, and with drainage. came to [facility] today for medical evaluation. Surgery called to evaluate for possible I&D. Allergies: Coded Allergies: No Known Allergies (Unverified , 07/27/12) Medication History Scheduled Gabapentin* (Gabapentin*), 300 MG ORAL THREE TIMES A DAY No Known Medications* (NKM - No Known Medications*), 0 ., (Reported) Miscellaneous Medications Unable to Obtain Medications (Unable To Obtain Meds), (Reported) Patient History History Provided By: Patient Healthcare decision maker Resuscitation status Full Code Advanced Directive on File Past Medical/Surgical History Past Medical/Surgical History: (1) Cellulitis (2) Abscess of finger of right hand (3) Blindness (4) Neuropathy Review of Systems All Other Systems: negative except mentioned in HPI Physical Exam General Appearance: WD/WN, no apparent distress, alert Lines, tubes and drains: peripheral HEENT: PERRL Neck: normal inspection Respiratory/Chest: normal breath sounds, no respiratory distress, no accessory muscle use Cardiovascular/Chest: normal peripheral pulses, normal rate, regular rhythm Abdomen: normal bowel sounds, non tender, soft Extremities: normal range of motion, other - right third finger with distal infection. erythema, edema, blister with discharge, nail no longer present. Skin Exam: normal pigmentation Neurologic: alert, oriented x 3, responsive Last 24 Hour Vital Signs Date Time Temp Pulse Resp B/P Pulse Ox O2 Delivery O2 Flow Rate FiO2 08/24/16 16:02 97.3 73 15 123/65 96 Room Air 08/24/16 12:18 97.5 67 15 134/74 97 Room Air 08/24/16 08:34 97.6 79 18 131/62 97 Room Air 08/24/16 07:31 74 20 Room Air 08/24/16 04:00 97.8 66 19 110/56 94 Nasal Cannula 08/24/16 00:00 97.8 70 18 113/52 96 Nasal Cannula 08/23/16 20:02 68 20 Room Air 08/23/16 20:00 97.3 68 18 125/59 94 Room Air Intake and Output 08/23/16 08/24/16 19:00 07:00 Intake Total 1171.7 ml 137.5 ml Output Total 1750 ml Balance -578.3 ml 137.5 ml Intake Oral 1080 ml IV Total 91.7 ml 137.5 ml Output Urine Total 1750 ml # Voids 7 Height (Feet): 5 Height (Inches): 7.00 Weight (Pounds): 179 Medications Current Medications Medications (Trade) Dose Ordered Sig/Lisa Route PRN Reason Start Time Stop Time Status Last Admin Dose Admin Acetaminophen (Tylenol) 650 mg Q4H PRN ORAL fever 08/22/16 16:00 09/21/16 15:59 Albuterol/ Ipratropium (DuoNeb 0.5-3(2.5)mg/3ml) 3 ml EVERY 4 HOURS PRN HHN Shortness of Breath 08/22/16 16:00 08/27/16 15:59 Cefepime HCl/ Dextrose (Maxipime/D5W) 110 ml @ 220 mls/hr EVERY 12 HOURS IVPB 08/24/16 21:00 08/31/16 20:59 Dextrose (Dextrose 50%) STAT PRN IV Hypoglycemia 08/22/16 16:00 09/21/16 15:59 Gabapentin (Neurontin) 300 mg THREE TIMES A DAY ORAL 08/22/16 18:00 09/21/16 17:59 08/24/16 17:19 Heparin Sodium (Porcine) (Heparin 5000 units/ml) 5,000 units EVERY 12 HOURS SUBQ 08/22/16 21:00 09/21/16 20:59 08/24/16 08:40 Insulin Aspart (NovoLOG) BEFORE MEALS AND HS SUBQ 08/22/16 21:00 09/21/16 20:59 08/23/16 11:52 Morphine Sulfate (Morphine Sulfate) 2 mg EVERY 4 HOURS PRN IVP Moderate Pain (Pain Scale 4-6) 08/22/16 16:00 08/29/16 15:59 08/24/16 19:26 Nitroglycerin (Ntg) 0.4 mg Q5M PRN SL Prn Chest Pain 08/22/16 16:00 09/21/16 15:59 Ondansetron HCl (Zofran) 4 mg Q6H PRN IVP Nausea & Vomiting 08/22/16 16:00 09/21/16 15:59 Polyethylene Glycol (Miralax) 17 gm DAILYPRN PRN ORAL Constipation 08/22/16 16:00 09/21/16 15:59 Temazepam (Restoril) 15 mg HSPRN PRN ORAL Insomnia 08/22/16 16:00 08/29/16 15:59 Vancomycin HCl 1.25 gm/Dextrose 275 ml @ 183.708 mls/hr Q12HR IVPB 08/24/16 09:00 08/29/16 08:59 08/24/16 10:39 Vancomycin HCl 1 ea 1 ea DAILY PRN MISC PER RX PROTOCOL 08/23/16 12:30 09/22/16 12:29 Assessment/Plan Problem List: (1) Abscess of finger of right hand Assessment & Plan: 65M right hand third finger infection. nailbed already removed prior to me seeing him. cellulitis in distal finger. blister with drainage but no underlying fluctuance. possible bony involvement. -I&D performed at bedside. blister unroofed. wound cleaned and dressed. -IV Abx -will monitor finger with wound care. ICD Codes: L02.511 - Cutaneous abscess of right hand SNOMED: [id number] John Valentin Aug 24, 2016 19:32
--- NOTE | 2016-08-24 19:35 | Operative Note - PDOC ---
Operative Note Operative Note Date of Operation/Procedure: Aug 24, 2016 Pre-op Diagnosis: right hand third finger infection possible abscess. Procedure: I&D of right hand third finger Post-op Diagnosis: right hand third finger cellulitis with blister. Surgeon: ladonna Anesthesia: other - pain meds as written Specimen: none Complications: none Condition: stable Fluids: n/a Estimated Blood Loss: none Drains: none Implant(s) used?: No Indications for Procedure 65M right hand third finger infection after bug bite. see consult for details. surgery indicated. I&D planned. patient expressed understanding and consented to procedure after risks, benefits and alternatives discussed. Description of Procedure right hand third finger cleaned and prepped in standard surgical fashion. blister unroofed. wound cleaned. nail already removed and nailbed debridement performed. no fluctuance or abscess identified. possible bony involvement. finger cleaned and dressings applied. John Valentin Aug 24, 2016 19:35
[2016-08-24 20:00] VITALS: BP 132/79
[2016-08-24] MEDS: Cefepime HCl 2 GM in D5W 110 ML IVPB SCH (20:53)
[2016-08-25] VITALS (7 sets, daily range): BP systolic 127–159; BP diastolic 67–81
[2016-08-25] MEDS: Morphine Sulfate 2mg/ml Inj IVP PRN ×2 (05:05→21:39)
[2016-08-25] MEDS: NovoLOG Insulin Flexpen SUBQ SCH ×2 (06:14→11:30)
[2016-08-25] MEDS: Heparin 5000 units/ml inj SUBQ SCH ×2 (09:00→20:11)
[2016-08-25] MEDS: Cefepime HCl 2 GM in D5W 110 ML IVPB SCH ×2 (09:11→20:10)
--- NOTE | 2016-08-25 09:47 | Infectious Diseases Prog Note ---
Assessment/Plan Assessment/Plan A: he patient is a 65-year-old male with Abscess / osteomyelitis. of the right 3rd finger Wound culture : Enterobacter SP I&D at bedside. 08/24 MRI : osteomyelitis + SP bug bite ? Peripheral neuropathy. PLAN: Continue the patient on vancomycin and Cefepime ( AB Rx d# ) 08/24 SP Zosyn d# 2 Monitor CBC Monitor BMP. Monitor wound culture. PICC before DC Subjective Constitutional: Denies: anorexia, chills, drenching sweats, fatigue, fever, no symptoms, other Allergies: Coded Allergies: No Known Allergies (Unverified , 07/27/12) Objective Vital Signs Last 24 Hour Vital Signs Date Time Temp Pulse Resp B/P Pulse Ox O2 Delivery O2 Flow Rate FiO2 08/25/16 08:14 98.2 73 15 127/70 98 Room Air 08/25/16 04:00 97.7 74 16 140/68 96 Room Air 08/25/16 00:00 97.9 70 15 133/67 98 Room Air 08/24/16 20:15 70 16 Room Air 21 08/24/16 20:00 97.9 76 17 132/79 99 Room Air 08/24/16 16:02 97.3 73 15 123/65 96 Room Air 08/24/16 12:18 97.5 67 15 134/74 97 Room Air Height (Feet): 5 Height (Inches): 7.00 Weight (Pounds): 179 HEENT: atraumatic Respiratory/Chest: no respiratory distress Cardiovascular: regular rhythm Abdomen: no organomegaly Microbiology Date/Time Source Procedure Growth Status 08/22/16 10:30 Blood Blood Culture - Preliminary NO GROWTH AFTER 48 HOURS Resulted 08/22/16 10:15 Blood Blood Culture - Preliminary NO GROWTH AFTER 48 HOURS Resulted 08/22/16 13:12 Nasal Nares MRSA Culture - Final NO METHICILLIN RESISTANT STAPH AUREUS... Complete 08/22/16 13:12 Rectum VRE Culture - Final NO VANCOMYCIN RESISTANT ENTEROCOCCUS ... Complete 08/22/16 13:07 Finger Right Middle Gram Stain - Final Resulted 08/22/16 13:07 Wound Culture - Preliminary Enterobacter Aerogenes Usual Skin Mimi Resulted Current Medications Medications (Trade) Dose Ordered Sig/Lisa Route PRN Reason Start Time Stop Time Status Last Admin Dose Admin Acetaminophen (Tylenol) 650 mg Q4H PRN ORAL fever 08/22/16 16:00 09/21/16 15:59 Albuterol/ Ipratropium (DuoNeb 0.5-3(2.5)mg/3ml) 3 ml EVERY 4 HOURS PRN HHN Shortness of Breath 08/22/16 16:00 08/27/16 15:59 Cefepime HCl/ Dextrose (Maxipime/D5W) 110 ml @ 220 mls/hr EVERY 12 HOURS IVPB 08/24/16 21:00 08/31/16 20:59 08/25/16 09:11 Dextrose (Dextrose 50%) STAT PRN IV Hypoglycemia 08/22/16 16:00 09/21/16 15:59 Gabapentin (Neurontin) 300 mg THREE TIMES A DAY ORAL 08/22/16 18:00 09/21/16 17:59 08/25/16 09:11 Heparin Sodium (Porcine) (Heparin 5000 units/ml) 5,000 units EVERY 12 HOURS SUBQ 08/22/16 21:00 09/21/16 20:59 08/24/16 08:40 Insulin Aspart (NovoLOG) BEFORE MEALS AND HS SUBQ 08/22/16 21:00 09/21/16 20:59 08/23/16 11:52 Morphine Sulfate (Morphine Sulfate) 2 mg EVERY 4 HOURS PRN IVP Moderate Pain (Pain Scale 4-6) 08/22/16 16:00 08/29/16 15:59 08/25/16 05:05 Nitroglycerin (Ntg) 0.4 mg Q5M PRN SL Prn Chest Pain 08/22/16 16:00 09/21/16 15:59 Ondansetron HCl (Zofran) 4 mg Q6H PRN IVP Nausea & Vomiting 08/22/16 16:00 09/21/16 15:59 Polyethylene Glycol (Miralax) 17 gm DAILYPRN PRN ORAL Constipation 08/22/16 16:00 09/21/16 15:59 Temazepam (Restoril) 15 mg HSPRN PRN ORAL Insomnia 08/22/16 16:00 08/29/16 15:59 Vancomycin HCl 1.25 gm/Dextrose 275 ml @ 183.708 mls/hr Q12HR IVPB 08/24/16 09:00 08/29/16 08:59 08/24/16 21:37 Vancomycin HCl 1 ea 1 ea DAILY PRN MISC PER RX PROTOCOL 08/23/16 12:30 09/22/16 12:29 OYSVANY LANTIGUA M.D. Aug 25, 2016 09:47
[2016-08-25] MEDS: Vancomycin 1250mg in D5W 275ml IVPB SCH ×2 (10:40→21:15)
--- NOTE | 2016-08-25 12:34 | General Progress Note ---
Progress Note Progress Note Afebrile. Pt underwent an I&D of his rt middle finger wound yesterday. Dressings were changed, the nail is off, there is mild skin slough of the dorsal mid to distal finger. He should continue on antibiotics for now. Ronan Mcgrath MD Aug 25, 2016 12:34
[2016-08-25] MEDS ORDERED: CEFEPIME-D1 GM/50 ML IVPB (12:55)
[2016-08-25] MEDS ORDERED: VANCOMYCIN1 GM/2502 IVPB (12:55)
--- NOTE | 2016-08-25 13:01 | Pulmonology Progress Note ---
Assessment/Plan Problems: (1) Cellulitis (2) Abscess of finger of right hand (3) Blindness (4) Neuropathy Assessment/Plan MRI: Abnormal T1 and STIR signal involving the third distal phalanx. This is suspicious for acute osteomyelitis. abx as per ID, surgical evaluation for further debridement check electrolytes and wbc needs 40 days of IV antibiotics dc planning for snif placement Subjective ROS Limited/Unobtainable: No Constitutional: Reports: no symptoms HEENT: Repors: no symptoms Respiratory: Reports: no symptoms Allergies: Coded Allergies: No Known Allergies (Unverified , 07/27/12) Objective Last 24 Hour Vital Signs Date Time Temp Pulse Resp B/P Pulse Ox O2 Delivery O2 Flow Rate FiO2 08/25/16 11:15 98.1 65 15 135/71 97 Room Air 08/25/16 08:16 74 16 Room Air 08/25/16 08:14 98.2 73 15 127/70 98 Room Air 08/25/16 04:00 97.7 74 16 140/68 96 Room Air 08/25/16 00:00 97.9 70 15 133/67 98 Room Air 08/24/16 20:15 70 16 Room Air 21 08/24/16 20:00 97.9 76 17 132/79 99 Room Air 08/24/16 16:02 97.3 73 15 123/65 96 Room Air Intake and Output 08/24/16 08/25/16 19:00 07:00 Intake Total 2385.000 ml 385.000 ml Output Total 1050 ml Balance 1335.000 ml 385.000 ml Intake Oral 2000 ml IV Total 385.000 ml 385.000 ml Output Urine Total 1050 ml # Voids 1 # Bowel Movements 1 General Appearance: WD/WN HEENT: normocephalic, atraumatic Respiratory/Chest: chest wall non-tender, lungs clear Cardiovascular: normal peripheral pulses, normal rate Abdomen: normal bowel sounds, soft, non tender Genitourinary: normal external genitalia Extremities: no cyanosis Skin: no rash 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 Complete 08/22/16 13:12 Rectum VRE Culture - Final NO VANCOMYCIN RESISTANT ENTEROCOCCUS ... Complete 08/22/16 13:07 Finger Right Middle Gram Stain - Final Complete 08/22/16 13:07 Wound Culture - Final Enterobacter Aerogenes Usual Skin Mimi Complete Current Medications Medications (Trade) Dose Ordered Sig/Lisa Route PRN Reason Start Time Stop Time Status Last Admin Dose Admin Acetaminophen (Tylenol) 650 mg Q4H PRN ORAL fever 08/22/16 16:00 09/21/16 15:59 Albuterol/ Ipratropium (DuoNeb 0.5-3(2.5)mg/3ml) 3 ml EVERY 4 HOURS PRN HHN Shortness of Breath 08/22/16 16:00 08/27/16 15:59 Cefepime HCl/ Dextrose (Maxipime/D5W) 110 ml @ 220 mls/hr EVERY 12 HOURS IVPB 08/24/16 21:00 08/31/16 20:59 08/25/16 09:11 Dextrose (Dextrose 50%) STAT PRN IV Hypoglycemia 08/22/16 16:00 09/21/16 15:59 Gabapentin (Neurontin) 300 mg THREE TIMES A DAY ORAL 08/22/16 18:00 09/21/16 17:59 08/25/16 09:11 Heparin Sodium (Porcine) (Heparin 5000 units/ml) 5,000 units EVERY 12 HOURS SUBQ 08/22/16 21:00 09/21/16 20:59 08/24/16 08:40 Insulin Aspart (NovoLOG) BEFORE MEALS AND HS SUBQ 08/22/16 21:00 09/21/16 20:59 08/23/16 11:52 Morphine Sulfate (Morphine Sulfate) 2 mg EVERY 4 HOURS PRN IVP Moderate Pain (Pain Scale 4-6) 08/22/16 16:00 08/29/16 15:59 08/25/16 05:05 Nitroglycerin (Ntg) 0.4 mg Q5M PRN SL Prn Chest Pain 08/22/16 16:00 09/21/16 15:59 Ondansetron HCl (Zofran) 4 mg Q6H PRN IVP Nausea & Vomiting 08/22/16 16:00 09/21/16 15:59 Polyethylene Glycol (Miralax) 17 gm DAILYPRN PRN ORAL Constipation 08/22/16 16:00 09/21/16 15:59 Temazepam (Restoril) 15 mg HSPRN PRN ORAL Insomnia 08/22/16 16:00 08/29/16 15:59 Vancomycin HCl 1.25 gm/Dextrose 275 ml @ 183.708 mls/hr Q12HR IVPB 08/24/16 09:00 08/29/16 08:59 08/25/16 10:40 Vancomycin HCl 1 ea 1 ea DAILY PRN MISC PER RX PROTOCOL 08/23/16 12:30 09/22/16 12:29 NASRA RICHMOND Aug 25, 2016 13:01
[2016-08-25] MEDS ORDERED: Lidocaine 1% Plain 30 ml INJ ONE (14:45)
[2016-08-25] MEDS ORDERED: Sodium Bicarbonate 4% 2.4meq/5ml vial INJ SCH (15:00)
[2016-08-25] MEDS ORDERED: Heparin 2000 units/Ns 1000ml INJ SCH (15:00)
[2016-08-25] MEDS ORDERED: Dyna-Hex 2% Top Sol 8oz TOPIC SCH (21:00)
[2016-08-26] VITALS: BP 124/66
[2016-08-26 04:00] VITALS: BP 116/48
[2016-08-26 08:33] VITALS: BP 123/67
[2016-08-26] MEDS: Cefepime HCl 2 GM in D5W 110 ML IVPB SCH (08:49)
[2016-08-26] MEDS: Heparin 5000 units/ml inj SUBQ SCH (09:00)
[2016-08-26] MEDS: Vancomycin 1250mg in D5W 275ml IVPB SCH (09:00)
--- NOTE | 2016-08-26 09:46 | General Progress Note ---
Progress Note Progress Note pt with finger infection. wound vefy clean with good granulation. nail is off. no pus or devitalized tissue. pending dc to snf.with local wound care only. STEPHANIE WOODY Aug 26, 2016 09:46
--- NOTE | 2016-08-28 08:53 | Diagnostic Imaging Report ---
Indications: Needs long-term IV access Technique: Ultrasound confirms patent compressible [ vein. Total sterile technique, including sterile probe cover and sterile gel, hat, mask,, sterile gown, large sterile drape, and preparation with 2% chlorhexidine utilized. Local anesthesia with 1% lidocaine. Under real-time ultrasound guidance, puncture left great vein using 21-gauge needle, documented and archived, passage 0.018 guidewire under direct fluoroscopy, which was used to determine appropriate catheter length, exchange for 5 Moroccan peel-away sheath. 5 Moroccan Bard dual-lumen power PICC cut to 44 cm. It was inserted through the peel-away sheath. Peel-away sheath and guidewire removed. Catheter fixed to the skin. Both catheter ports aspirated and flushed. Patient tolerated procedure well, without immediate complication. Digital radiograph documents satisfactory catheter tip position, at the cavoatrial junction. Total fluoroscopy time 0.2 minutes. Total dose area product 7.1 dGycm2 Impression: Successful placement of left arm PICC under sonographic and fluoroscopic guidance, as described above.
--- NOTE | 2016-08-28 14:12 | Discharge Summary ---
Discharge Summary Hospital Course Date of Admission Aug 22, 2016 at 15:00 Date of Discharge Aug 26, 2016 at 10:36 Admitting Diagnosis osteomyelitis KAYLIN Pabon is a 65 year old male who was admitted on Aug 22, 2016 at 15:00 for Osteomyelitis Hospital Course dc summary #[id number] Discharge Medications New Medications: Cefepime Hcl/D5w (Cefepime-Dextrose 1 Gm/50 Ml) 1 Gm/50 Ml Piggyback 1 GM IVPB DAILY for 40 Days, BAG Vancomycin Hcl/D5w (Vancomycin-D5w 1 G/250 Ml) 1 Gm/250 Ml Plast..bag 1 GM IVPB Q24H for 40 Days, BAG Discharge Condition Upon Discharge: stable Discharge Disposition Patient was discharged to SNF/Subacute Facility(03) Discharge Diagnoses: Discharge Instructions Discharge Instructions Special Instructions I have been assigned to complete a D/C Summary on this account. I was not involved in the patient management Jessica Dove NP ([facility]) Aug 28, 2016 14:12
--- NOTE | 2016-08-29 03:31 | Discharge Summary 2 SIG ---
DATE OF ADMISSION: 08/22/2016 DATE OF DISCHARGE: 08/26/2016 REASON FOR ADMISSION: 65 years old male, presented with right middle finger pain. The patient presumed that he might have gotten bitten by a bug. No fevers. No chills. However, pain was severe, radiating to the hand. Finger deformed, unable to bend. X-ray of the right hand third finger did not show any obvious evidence of osteomyelitis, but was consistent degenerative joint disease. The ED doctor performed initial incision and drainage to remove the nail. Patient tolerated procedure well. The patient had no leukocytosis. No fever. Lactic acid within normal limits. EKG revealed normal sinus rhythm, evidence of left ventricular hypertrophy. The patient was admitted for further management. ADMITTING DIAGNOSES: 1. Right hand third finger cellulitis. 2. Possible abscess. 3. Peripheral neuropathy. 4. Status post bug bite. HOSPITAL COURSE: The patient admitted. Infectious Disease consult was requested. Wound culture grew Enterobacter. Blood cultures were negative. Surgeon followed the patient. On 08/24/2016, the patient undergone incision and drainage of the right hand third finger. No abscess was identified, questionable bone involvement. Wound care provided as per surgery recommendations. MRI of the third distal phalanx revealed findings highly suspicious for acute osteomyelitis. The patient will need total of six weeks of antibiotic. Infectious Disease specialist directed antibiotic course. PICC line was placed prior to discharge. [facility]. DISCHARGE DIAGNOSES: 1. Right hand third finger cellulitis 2. Status post incision and drainage right hand third finger wound. 3. Acute osteomyelitis, right hand third finger. 4. Peripheral neuropathy. 5. Status post bug bite. DISCHARGE MEDICATIONS: See medication reconciliation list. DISCHARGE INSTRUCTIONS: The [facility] to [facility] for [facility] care and IV antibiotics. FOLLOWUP: Follow up with medical doctor at the facility. Hayden Ventura M.D. I have been assigned to dictate discharge summary on this account and I was not involved in the patient's management. Jessica Dove ([facility] NWaynePWayne DR: Junaid JOB#: [id number] CC: CORBIN
--- NOTE | 2016-08-29 14:44 | Diagnostic Imaging Report ---
APPROVED REPORT CPT Code: 68821 Present Symptoms Lower Extremity Pain: Bilateral BILATERAL: Imaging reveals a patent deep venous system bilaterally. There is no evidence of thrombus within the femoral, popliteal or tibial segments. The greater saphenous veins are also within normal limits. Doppler indicates normal spontaneous flow within these segments. The tibial veins were not well visualized bilaterally.
== END 2016-08-26 10:36 | DRG 344 ==
LOC: EDBD 09:56 → EMR 10:50 → EDBEDREQ 14:14 → 4E 15:00 → EDBEDREQ 15:21 → 4E 15:56 → SDSOVERFLO 08-24 12:22 → 4E 08-24 12:23
PROC: 0H9QXZZ Drainage of Finger Nail, External Approach (ICD-10-PCS; 2016-08-22)
PROC: 0H9FXZZ Drainage of Right Hand Skin, External Approach (ICD-10-PCS; principal; 2016-08-24)
PROC: 02HV33Z Insertion of Infusion Device into Superior Vena Cava, Percutaneous Approach (ICD-10-PCS; 2016-08-25)
DX: M86.141 Other acute osteomyelitis, right hand (principal); G62.9 Polyneuropathy, unspecified; L03.011 Cellulitis of right finger; S60.462A Insect bite (nonvenomous) of right middle finger, initial encounter; B96.89 Other specified bacterial agents as the cause of diseases classified elsewhere; W57.XXXA Bitten or stung by nonvenomous insect and other nonvenomous arthropods, initial encounter; H54.41 Blindness, right eye, normal vision left eye; Z59.0 Homelessness
CPT/HCPCS: 10060; 36415; 36569; 71010; 76937; 80053; 80202; 81003; 82550; 82962; 83605; 84484; 85025; 85610; 85651; 85730; 87040; 87070; 87081; 87181; 87205; 93005; 93970; 94664; J1815

== ENCOUNTER 2016-09-19 16:27 | Emergency (ER) | payer MEDICARE, OTHER ==
[~2016-09-19] VITALS: Ht 165.1 cm; Wt 72.6 kg
[~2016-09-19 16:27] MED LIST changes: +CEFEPIME-D1 GM/50 ML IVPB; +VANCOMYCIN1 GM/2502 IVPB
[2016-09-19 17:54] VITALS: BP 148/60
[2016-09-19 19:02] VITALS: BP 142/72
[2016-09-19 19:17] VITALS: BP 142/70
[2016-09-19 20:42] LABS: BASOPHILS % (AUTO) 1.6 % (0.0-2.0); EOSINOPHILS % (AUTO) 2.7 % (0.0-3.0); LYMPHOCYTES % (AUTO) 30.9 % (20.0-45.0); MEAN CORPUSCULAR HEMOGLOBIN 24.4 PG (27.0-31.0); MEAN CORPUSCULAR HGB CONC 30.6 G/DL (32.0-36.0); MEAN CORPUSCULAR VOLUME 80 FL (80-99); MEAN PLATELET VOLUME 8.7 FL (6.5-10.1); MONOCYTES % (AUTO) 17.3 % (1.0-10.0); NEUTROPHILS % (AUTO) 47.6 % (45.0-75.0); PLATELET COUNT 182 K/UL (150-450); RED BLOOD COUNT 4.87 M/UL (4.70-6.10); RED CELL DISTRIBUTION WIDTH 16.4 % (11.6-14.8); WHITE BLOOD COUNT 5.3 K/UL (4.8-10.8)
[2016-09-19 20:53] LABS: ACETAMINOPHEN < 10 ug/mL (10-30); ALANINE AMINOTRANSFERASE 57 U/L (3-41); ALBUMIN/GLOBULIN RATIO 1.1 (1.0-2.7); ALCOHOL < 10 mg/dL; ANION GAP 13 (5-15); ASPARTATE AMINO TRANSFERASE 39 U/L (5-40); CALCIUM 9.5 mg/dL (8.6-10.2); CARBON DIOXIDE 26 mEQ/L (20-30); CHLORIDE 102 mEQ/L (98-107); CREATININE 0.9 mg/dL (0.7-1.2); GLOMERULAR FILTRATION RATE > 60 mL/min (>60); HEMOLYSIS 46; POTASSIUM 4.4 mEQ/L (3.4-4.9); SODIUM 141 mEQ/L (135-145); TOTAL PROTEIN 7.6 g/dL (6.6-8.7)
[2016-09-19 22:51] VITALS: BP 125/71
[2016-09-19 23:07] VITALS: BP 125/71
--- NOTE | 2016-09-20 08:37 | Diagnostic Imaging Report ---
APPROVED REPORT CPT Code: 67106 Present Symptoms Upper Extremity Pain: Left Comments: LEFT ARM PICC LINE ASSESSMENT. LEFT UPPER EXTREMITY: Imaging reveals patency of the PICC line, visualized at the distal brachial to the basilic vein. Imaging reveals patency of the internal jugular, subclavian, axillary and brachial veins. The cephalic and basilic veins are also within normal limits.
--- NOTE | 2016-09-21 06:36 | Emergency Room Report ---
History of Present Illness General Chief Complaint: Pain Source: Patient, Medical Record Present Illness HPI Patient is a 65-year-old male sent in by intermediate for increased left upper extremity pain. Patient recently been treated for an infection and been getting IV antibiotics through a left upper extremity PICC line. Patient had been noted to have increased pain to the area. He been having fever. He is currently receiving IV antibiotics by facility. He presented for further evaluation of increased pain. Patient denied any new swelling. Allergies: Coded Allergies: No Known Allergies (Unverified , 07/27/12) Patient History Past Medical History: see triage record Reviewed Nursing Documentation: PMH: Agreed, PSxH: Agreed Nursing Documentation-PMH Past Medical History: No History, Except For Hx Cardiac Problems: No - osteomylitis Hx Pacemaker: No - RT EYE BLINDNESS Hx Cancer: No Hx Gastrointestinal Problems: No Hx Neurological Problems: Yes Hx Peripheral Neuropathy: Yes Review of Systems All Other Systems: negative except mentioned in HPI Physical Exam Vital Signs Date Time Temp Pulse Resp B/P Pulse Ox O2 Delivery O2 Flow Rate FiO2 09/19/16 17:05 97.9 60 16 149/68 97 Room Air Sp02 EP Interpretation: reviewed, normal General Appearance: normal inspection, well appearing, no apparent distress, alert, Chronically Ill Head: atraumatic ENT: normal ENT inspection, normal voice Neck: normal inspection, supple, no bony tend, limited range of motion Respiratory: normal inspection, lungs clear, normal breath sounds, no respiratory distress, no retraction, no wheezing Cardiovascular #1: regular rate, rhythm, no edema Gastrointestinal: normal inspection, normal bowel sounds, non tender, soft, no guarding, no hernia Genitourinary: no CVA tenderness Musculoskeletal: normal inspection, back normal, normal range of motion Neurologic: normal inspection, alert, responsive, medical claims 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 Because of complexity of patient's case laboratory testing and imaging studies were ordered. The patient was noted to have a patent IV. The patient's IV site does not appear to be infected. Vascular ultrasound of the upper extremity showed no evidence of deep venous thrombosis. Patient was discharged back to intermediate. Nursing staff were advised her return precautions. The patient was transferred home by ambulance. Last Vital Signs Date Time Temp Pulse Resp B/P Pulse Ox O2 Delivery O2 Flow Rate FiO2 09/19/16 23:07 97.7 57 15 125/71 98 Room Air Status: improved Disposition: [facility] Condition: Stable Patient Instructions: Peripheral Intravenous Catheter Armani Mancera Sep 21, 2016 06:36
== END 2016-09-19 23:10 ==
LOC: EDUNIT# 16:27 → EDBD 16:27 → EMR 17:46
DX: M79.602 Pain in left arm (principal); G62.9 Polyneuropathy, unspecified; H54.41 Blindness, right eye, normal vision left eye
CPT/HCPCS: 36415; 80053; 80300; 85025; 93971; 99284; G0480; 80329

== ENCOUNTER 2017-07-27 11:56 | Inpatient (IN) | payer MEDICARE, OTHER ==
[~2017-07-27] VITALS: Ht 170.2 cm; Wt 65.8 kg
[2017-07-27] MEDS ORDERED: CEFAZOLIN SODIUM1 GM IJ (12:03)
[2017-07-27] MEDS ORDERED: DOCUSATE SODIU100 MG ORAL (12:03)
[2017-07-27] MEDS ORDERED: NORCO 5-325 TA1 EACH ORAL (12:03)
[2017-07-27] MEDS ORDERED: TRAZODONE HCL50 MG ORAL (12:03)
[2017-07-27] MEDS ORDERED: Morphine Sulfate 4mg/ml Inj IVP ONE ×3 (12:45→16:45)
[2017-07-27 13:11] LABS: BASOPHILS % (AUTO) 1.4 % (0.0-2.0); EOSINOPHILS % (AUTO) 0.9 % (0.0-3.0); HEMATOCRIT 32.2 % (42.0-52.0); HEMOGLOBIN 9.8 G/DL (14.2-18.0); LYMPHOCYTES % (AUTO) 20.4 % (20.0-45.0); MEAN CORPUSCULAR VOLUME 90 FL (80-99); MONOCYTES % (AUTO) 10.5 % (1.0-10.0); NEUTROPHILS % (AUTO) 66.9 % (45.0-75.0); PLATELET COUNT 384 K/UL (150-450); RED BLOOD COUNT 3.57 M/UL (4.70-6.10); RED CELL DISTRIBUTION WIDTH 15.9 % (11.6-14.8); WHITE BLOOD COUNT 7.2 K/UL (4.8-10.8)
[2017-07-27 13:24] LABS: ANION GAP 9 mmol/L (5-15); BLOOD UREA NITROGEN 15 mg/dL (7-18); CALCIUM 8.9 MG/DL (8.5-10.1); CARBON DIOXIDE 25 MMOL/L (21-32); CHLORIDE 108 MMOL/L (98-107); CREATININE 0.8 MG/DL (0.55-1.30); POTASSIUM 4.5 MMOL/L (3.5-5.1); SODIUM 142 MMOL/L (136-145)
[2017-07-27 13:37] LABS: ALANINE AMINOTRANSFERASE 46 U/L (12-78); ALBUMIN 2.3 G/DL (3.4-5.0); ALBUMIN/GLOBULIN RATIO 0.4 (1.0-2.7); ALKALINE PHOSPHATASE 124 U/L (46-116); ASPARTATE AMINO TRANSFERASE 76 U/L (15-37); BILIRUBIN,TOTAL 1.1 MG/DL (0.2-1.0); CKMB 1.5 NG/ML (0.0-3.6); CREATINE KINASE 186 U/L (26-308)
[2017-07-27 13:38] LABS: BILIRUBIN,DIRECT 0.3 MG/DL (0.0-0.3)
[2017-07-27 13:48] VITALS: BP 129/67
--- NOTE | 2017-07-27 14:34 | Diagnostic Imaging Report ---
Indication: Pain and swelling, 10 days status post [id number] right leg amputation Technique: IV administration nonionic contrast. Spiral acquisitions obtained through the right thigh Multiplanar reconstructions were generated. Total dose length product 726 mGycm. CTDIvol(s) 15 mGy. Radiation dose was minimized using automated exposure control Comparison: none Findings: Patient is status post [id number] amputation. A skin defect anteriorly in the stump appears to reach distal margin of the bony stump, and it is possible of bone may be exposed. A small amount of retained air from the surgical exposure is seen in the distal soft tissues. Posteriorly end distally, there is a fluid attenuation collection which appears to be deep to the superficial fascia and possibly within the musculature. This measures 6.4 cm transverse by 2.8 cm AP by 5.5 cm in length. This does not have an enhancing rim. The bony amputation margins appear clean. No other abnormal fluid collections are demonstrated. The included pelvic viscera are unremarkable. There are degenerative changes of the lumbosacral junction. Impression: 6.4 x 2.8 x 5.5 cm collection in the posterior distal soft tissues, deep to the superficial fascia and possibly within the musculature. No enhancing rim. This could represent a routine postoperative fluid collection, but could also represent an abscess Postsurgical changes, as described. Note that there is a soft tissue defect in the distal stump which appears to extend all the way to the tip of the tip of the stump of the femur, which could be exposed. Correlate with clinical findings Other findings as noted, including degenerative lumbosacral spondylosis Findings discussed by phone with Dr. Elmore in the emergency room at the time of interpretation The CT scanner at [facility] is accredited by the [employer] and the scans are performed using protocols designed to limit radiation exposure to as low as reasonably achievable to attain images of sufficient resolution adequate for diagnostic evaluation.
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
--- NOTE | 2017-07-27 14:52 | Diagnostic Imaging Report ---
Indication: Shortness of breath Technique: One view of the chest Comparison: none Findings: The heart is mildly enlarged. The lungs and pleural spaces are clear. The patient is rotated to the left. Previously demonstrated borderline interstitial congestion is no longer evident Impression: No acute process Borderline cardiomegaly
[2017-07-27 14:53] LABS: APPEARANCE,URINE CLEAR; BILIRUBIN, URINE NEGATIVE (NEGATIVE); COLOR,URINE PALE YELLOW; GLUCOSE, URINE (UA) NEGATIVE (NEGATIVE); KETONES,URINE NEGATIVE (NEGATIVE); LEUKOCYTE ESTERASE ,URINE NEGATIVE (NEGATIVE); NITRITE,URINE NEGATIVE (NEGATIVE); PH,URINE 8 (4.5-8.0); PROTEIN,URINE NEGATIVE (NEGATIVE); UROBILINOGEN,URINE 4 MG/DL (0.0-1.0)
[2017-07-27] MEDS ORDERED: Vancomycin 1 GM in NS 275 ML IVPB ONE (15:00)
[2017-07-27] MEDS ORDERED: Meropenem 1 GM in NS 55 ML IVPB ONE (15:00)
[2017-07-27 16:05] VITALS: BP 127/65
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
[2017-07-27 20:10] VITALS: BP 126/47
[2017-07-27] MEDS: Morphine Sulfate 4mg/ml Inj IVP PRN (20:51)
[2017-07-27] MEDS: Heparin 5000 units/ml inj SUBQ SCH (20:52)
--- NOTE | 2017-07-27 21:07 | Infectious Diseases Prog Note ---
Assessment/Plan Assessment/Plan Full consult dictated: A) 1) right leg stump wound infection, possible abscess, possible osteo 2) recent right aka 3) pmh noted 4) allergies - negative P) 1) zosyn and vancomycin 2) surgery evaluation noted, no surgical intervention for now, continue to monitor 3) check wound culture, check labs 4) thank you Subjective Allergies: Coded Allergies: No Known Allergies (Unverified , 07/27/12) Objective Vital Signs Last 24 Hour Vital Signs Date Time Temp Pulse Resp B/P (MAP) Pulse Ox O2 Delivery O2 Flow Rate FiO2 07/27/17 20:10 99.7 92 18 126/47 100 99.7 07/27/17 16:53 97 19 127/65 99 Room Air 07/27/17 16:05 97 19 127/65 99 Room Air 07/27/17 13:48 78 16 129/67 99 Room Air 07/27/17 11:54 73 16 118/58 99 Room Air Height (Feet): 5 Height (Inches): 7.00 Weight (Pounds): 125 Laboratory Tests Test 07/27/17 12:25 07/27/17 14:00 07/27/17 19:45 White Blood Count 7.2 K/UL (4.8-10.8) Red Blood Count 3.57 M/UL (4.70-6.10) L Hemoglobin 9.8 G/DL (14.2-18.0) L Hematocrit 32.2 % (42.0-52.0) L Mean Corpuscular Volume 90 FL (80-99) Mean Corpuscular Hemoglobin 27.5 PG (27.0-31.0) Mean Corpuscular Hemoglobin Concent 30.5 G/DL (32.0-36.0) L Red Cell Distribution Width 15.9 % (11.6-14.8) H Platelet Count 384 K/UL (150-450) Mean Platelet Volume 5.7 FL (6.5-10.1) L Neutrophils (%) (Auto) 66.9 % (45.0-75.0) Lymphocytes (%) (Auto) 20.4 % (20.0-45.0) Monocytes (%) (Auto) 10.5 % (1.0-10.0) H Eosinophils (%) (Auto) 0.9 % (0.0-3.0) Basophils (%) (Auto) 1.4 % (0.0-2.0) Prothrombin Time 10.1 SEC (9.30-11.50) Prothromb Time International Ratio 1.0 (0.9-1.1) Activated Partial Thromboplast Time 27 SEC (23-33) Sodium Level 142 MMOL/L (136-145) Potassium Level 4.5 MMOL/L (3.5-5.1) Chloride Level 108 MMOL/L (98-107) H Carbon Dioxide Level 25 MMOL/L (21-32) Anion Gap 9 mmol/L (5-15) Blood Urea Nitrogen 15 mg/dL (7-18) Creatinine 0.8 MG/DL (0.55-1.30) Estimat Glomerular Filtration Rate > 60 mL/min (>60) Glucose Level 91 MG/DL (74-106) Lactic Acid Level 2.70 mmol/L (0.66-2.22) H 1.70 mmol/L (0.66-2.22) Calcium Level 8.9 MG/DL (8.5-10.1) Total Bilirubin 1.1 MG/DL (0.2-1.0) H Direct Bilirubin 0.3 MG/DL (0.0-0.3) Aspartate Amino Transf (AST/SGOT) 76 U/L (15-37) H Alanine Aminotransferase (ALT/SGPT) 46 U/L (12-78) Alkaline Phosphatase 124 U/L (46-116) H Total Creatine Kinase 186 U/L (26-308) Creatine Kinase MB 1.5 NG/ML (0.0-3.6) Creatine Kinase MB Relative Index 0.8 Troponin I 0.004 ng/mL (0.000-0.056) Total Protein 7.6 G/DL (6.4-8.2) Albumin 2.3 G/DL (3.4-5.0) L Globulin 5.3 g/dL Albumin/Globulin Ratio 0.4 (1.0-2.7) L Urine Color Pale yellow Urine Appearance Clear Urine pH 8 (4.5-8.0) Urine Specific [place] 1.005 (1.005-1.035) Urine Protein Negative (NEGATIVE) Urine Glucose (UA) Negative (NEGATIVE) Urine Ketones Negative (NEGATIVE) Urine Occult Blood Negative (NEGATIVE) Urine Nitrite Negative (NEGATIVE) Urine Bilirubin Negative (NEGATIVE) Urine Urobilinogen 4 MG/DL (0.0-1.0) H Urine Leukocyte Esterase Negative (NEGATIVE) Erythrocyte Sedimentation Rate 80 MM/HR (0-20) H C-Reactive Protein, Quantitative 1.2 mg/dL (0.00-0.90) H Current Medications Medications (Trade) Dose Ordered Sig/Lisa Route PRN Reason Start Time Stop Time Status Last Admin Dose Admin Acetaminophen (Tylenol) 650 mg Q4H PRN ORAL Mild Pain/Temp > 100.5 07/27/17 19:00 08/26/17 18:59 Acetaminophen/ Hydrocodone Bitart ([place] 10/325) 1 tab Q4H PRN ORAL Moderate Pain (Pain Scale 4-6) 07/27/17 19:00 08/03/17 18:59 Gabapentin (Neurontin) 300 mg THREE TIMES A DAY ORAL 07/27/17 20:00 08/26/17 19:59 07/27/17 20:50 Heparin Sodium (Porcine) (Heparin 5000 units/ml) 5,000 units EVERY 12 HOURS SUBQ 07/27/17 21:00 08/26/17 20:59 07/27/17 20:52 Morphine Sulfate (Morphine Sulfate) 4 mg Q4H PRN IVP Severe Pain (Pain Scale 7-10) 07/27/17 19:00 08/03/17 18:59 07/27/17 20:51 Ondansetron HCl (Zofran) 4 mg Q4H PRN IVP Nausea & Vomiting 07/27/17 19:00 08/26/17 18:59 Sodium Chloride 1,000 ml @ 75 mls/hr [id number] IV 07/27/17 20:00 08/26/17 19:59 07/27/17 20:53 Trazodone HCl (Desyrel) 50 mg BEDTIME PRN ORAL SLEEP AID 07/27/17 19:00 08/26/17 18:59 Lauren Laws MD July 27, 2017 21:07
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
[2017-07-28] VITALS: BP 126/63
[2017-07-28] MEDS: TraZODone 50mg tab ORAL PRN ×2 (00:05→22:31)
[2017-07-28] MEDS: Morphine Sulfate 4mg/ml Inj IVP PRN ×5 (01:50→21:32)
[2017-07-28] MEDS ORDERED: Vancomycin 1250mg/D5W 250ml IVPB SCH ×2 (03:00→16:00)
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
[2017-07-28 04:00] VITALS: BP 129/69
[2017-07-28 07:50] LABS: APPEARANCE,URINE CLEAR; BILIRUBIN, URINE NEGATIVE (NEGATIVE); GLUCOSE, URINE (UA) NEGATIVE (NEGATIVE); KETONES,URINE NEGATIVE (NEGATIVE); LEUKOCYTE ESTERASE ,URINE NEGATIVE (NEGATIVE); NITRITE,URINE NEGATIVE (NEGATIVE); PH,URINE 6 (4.5-8.0); PROTEIN,URINE NEGATIVE (NEGATIVE); UROBILINOGEN,URINE 4 MG/DL (0.0-1.0)
[2017-07-28 07:55] LABS: COLOR,URINE YELLOW
[2017-07-28 07:58] LABS: BASOPHILS % (AUTO) 1.1 % (0.0-2.0); EOSINOPHILS % (AUTO) 1.8 % (0.0-3.0); HEMATOCRIT 27.5 % (42.0-52.0); HEMOGLOBIN 8.4 G/DL (14.2-18.0); LYMPHOCYTES % (AUTO) 22.1 % (20.0-45.0); MEAN CORPUSCULAR VOLUME 89 FL (80-99); NEUTROPHILS % (AUTO) 64.1 % (45.0-75.0); PLATELET COUNT 433 K/UL (150-450); RED CELL DISTRIBUTION WIDTH 16.3 % (11.6-14.8); WHITE BLOOD COUNT 6.9 K/UL (4.8-10.8)
[2017-07-28 07:59] LABS: ANION GAP 6 mmol/L (5-15); BLOOD UREA NITROGEN 16 mg/dL (7-18); CALCIUM 8.1 MG/DL (8.5-10.1); CARBON DIOXIDE 28 MMOL/L (21-32); CHLORIDE 109 MMOL/L (98-107); CREATININE 0.9 MG/DL (0.55-1.30); SODIUM 142 MMOL/L (136-145)
[2017-07-28] MEDS: Heparin 5000 units/ml inj SUBQ SCH ×2 (08:41→21:04)
[2017-07-28] MEDS: HYDROcodone/Acetamin 10/325 tab ORAL PRN ×2 (08:51→17:23)
[2017-07-28 09:00] VITALS: BP 118/53
--- NOTE | 2017-07-28 09:07 | Diagnostic Imaging Report ---
2 VIEW RIGHT "KNEE": HISTORY: 66-year-old male with pain; status post [id number] amputation. COMPARISON: Right hip/thigh CT with intravenous contrast 07/27/2017. FINDINGS: There has been right [id number] amputation, as before. The residual imaged proximal right femur is unremarkable, without fracture or erosion. There appears to be a small gas-filled triangular shaped soft tissue defect involving the anterior inferior stump extending to the anterior cortex of the residual mid femoral shaft, grossly stable since the recent CT. Moderate atherosclerotic mural calcification of the right superficial femoral artery is noted. IMPRESSION: Unremarkable imaged residual right femur, without fracture or erosion; small gas-filled soft tissue defect of the anterior inferior stump, extending to the anterior cortex of the inferior femoral stump, grossly stable since the recent CT.
--- NOTE | 2017-07-28 12:21 | General Surgery Progress Note ---
General Surgery-Progress Note Subjective Additional Comments doing well. no acute events. comfortable. pain in right AKA. serous drainage from right AKA. no leukocytosis. elevated ESR Objective Last 24 Hour Vital Signs Date Time Temp Pulse Resp B/P (MAP) Pulse Ox O2 Delivery O2 Flow Rate FiO2 07/28/17 10:44 98.8 07/28/17 09:50 98.8 07/28/17 09:00 98.8 80 18 118/53 97 98.8 07/28/17 08:51 98.2 07/28/17 04:00 98.2 87 20 129/69 99 98.2 07/28/17 00:00 96.5 89 18 126/63 96.5 07/27/17 20:10 99.7 92 18 126/47 100 99.7 07/27/17 16:53 97 19 127/65 99 Room Air 07/27/17 16:05 97 19 127/65 99 Room Air 07/27/17 13:48 78 16 129/67 99 Room Air I&O Intake and Output 07/27/17 07/28/17 19:00 07:00 Intake Total 60 ml Output Total 800 ml Balance 60 ml -800 ml Intake Oral 60 ml Output Urine Total 800 ml # Voids 1 Cardiovascular: RSR Respiratory: clear Abdomen: soft, non-tender, present bowel sounds Extremities: edema, other - right AKA with wound dehisecence and serous drainage. Laboratory Tests Test 07/27/17 12:25 07/27/17 14:00 07/27/17 19:45 07/28/17 01:15 White Blood Count 7.2 K/UL (4.8-10.8) Red Blood Count 3.57 M/UL (4.70-6.10) L Hemoglobin 9.8 G/DL (14.2-18.0) L Hematocrit 32.2 % (42.0-52.0) L Mean Corpuscular Volume 90 FL (80-99) Mean Corpuscular Hemoglobin 27.5 PG (27.0-31.0) Mean Corpuscular Hemoglobin Concent 30.5 G/DL (32.0-36.0) L Red Cell Distribution Width 15.9 % (11.6-14.8) H Platelet Count 384 K/UL (150-450) Mean Platelet Volume 5.7 FL (6.5-10.1) L Neutrophils (%) (Auto) 66.9 % (45.0-75.0) Lymphocytes (%) (Auto) 20.4 % (20.0-45.0) Monocytes (%) (Auto) 10.5 % (1.0-10.0) H Eosinophils (%) (Auto) 0.9 % (0.0-3.0) Basophils (%) (Auto) 1.4 % (0.0-2.0) Prothrombin Time 10.1 SEC (9.30-11.50) Prothromb Time International Ratio 1.0 (0.9-1.1) Activated Partial Thromboplast Time 27 SEC (23-33) Sodium Level 142 MMOL/L (136-145) Potassium Level 4.5 MMOL/L (3.5-5.1) Chloride Level 108 MMOL/L (98-107) H Carbon Dioxide Level 25 MMOL/L (21-32) Anion Gap 9 mmol/L (5-15) Blood Urea Nitrogen 15 mg/dL (7-18) Creatinine 0.8 MG/DL (0.55-1.30) Estimat Glomerular Filtration Rate > 60 mL/min (>60) Glucose Level 91 MG/DL (74-106) Lactic Acid Level 2.70 mmol/L (0.66-2.22) H 1.70 mmol/L (0.66-2.22) Calcium Level 8.9 MG/DL (8.5-10.1) Total Bilirubin 1.1 MG/DL (0.2-1.0) H Direct Bilirubin 0.3 MG/DL (0.0-0.3) Aspartate Amino Transf (AST/SGOT) 76 U/L (15-37) H Alanine Aminotransferase (ALT/SGPT) 46 U/L (12-78) Alkaline Phosphatase 124 U/L (46-116) H Total Creatine Kinase 186 U/L (26-308) Creatine Kinase MB 1.5 NG/ML (0.0-3.6) Creatine Kinase MB Relative Index 0.8 Troponin I 0.004 ng/mL (0.000-0.056) Total Protein 7.6 G/DL (6.4-8.2) Albumin 2.3 G/DL (3.4-5.0) L Globulin 5.3 g/dL Albumin/Globulin Ratio 0.4 (1.0-2.7) L Urine Color Pale yellow Yellow Urine Appearance Clear Clear Urine pH 8 (4.5-8.0) 6 (4.5-8.0) Urine Specific [place] 1.005 (1.005-1.035) 1.010 (1.005-1.035) Urine Protein Negative (NEGATIVE) Negative (NEGATIVE) Urine Glucose (UA) Negative (NEGATIVE) Negative (NEGATIVE) Urine Ketones Negative (NEGATIVE) Negative (NEGATIVE) Urine Occult Blood Negative (NEGATIVE) Negative (NEGATIVE) Urine Nitrite Negative (NEGATIVE) Negative (NEGATIVE) Urine Bilirubin Negative (NEGATIVE) Negative (NEGATIVE) Urine Urobilinogen 4 MG/DL (0.0-1.0) H 4 MG/DL (0.0-1.0) H Urine Leukocyte Esterase Negative (NEGATIVE) Negative (NEGATIVE) Erythrocyte Sedimentation Rate 80 MM/HR (0-20) H C-Reactive Protein, Quantitative 1.2 mg/dL (0.00-0.90) H Urine RBC 0 /HPF (0 - 0) Urine WBC 0-2 /HPF (0 - 0) Urine Squamous Epithelial Cells Occasional /LPF Urine Bacteria Occasional /HPF (NONE) Test 07/28/17 06:35 White Blood Count 6.9 K/UL (4.8-10.8) Red Blood Count 3.10 M/UL (4.70-6.10) L Hemoglobin 8.4 G/DL (14.2-18.0) L Hematocrit 27.5 % (42.0-52.0) L Mean Corpuscular Volume 89 FL (80-99) Mean Corpuscular Hemoglobin 27.2 PG (27.0-31.0) Mean Corpuscular Hemoglobin Concent 30.6 G/DL (32.0-36.0) L Red Cell Distribution Width 16.3 % (11.6-14.8) H Platelet Count 433 K/UL (150-450) Mean Platelet Volume 5.5 FL (6.5-10.1) L Neutrophils (%) (Auto) 64.1 % (45.0-75.0) Lymphocytes (%) (Auto) 22.1 % (20.0-45.0) Monocytes (%) (Auto) 11.0 % (1.0-10.0) H Eosinophils (%) (Auto) 1.8 % (0.0-3.0) Basophils (%) (Auto) 1.1 % (0.0-2.0) Sodium Level 142 MMOL/L (136-145) Potassium Level 4.0 MMOL/L (3.5-5.1) Chloride Level 109 MMOL/L (98-107) H Carbon Dioxide Level 28 MMOL/L (21-32) Anion Gap 6 mmol/L (5-15) Blood Urea Nitrogen 16 mg/dL (7-18) Creatinine 0.9 MG/DL (0.55-1.30) Estimat Glomerular Filtration Rate > 60 mL/min (>60) Glucose Level 92 MG/DL (74-106) Calcium Level 8.1 MG/DL (8.5-10.1) L Plan Problems: (1) Wound dehiscence Assessment & Plan: 66M hx of recent traumatic right AKA. now with right AKA pain and wound dehiscence. afebrile, HD stable, no leukocytosis, exam as above. CT findings: 6.4 x 2.8 x 5.5 cm collection in the posterior distal soft tissues, deep to the superficial fascia and possibly within the musculature. No enhancing rim. This could represent a routine postoperative fluid collection, but could also represent an abscess Possible abscess vs seroma/hematoma. wound with dehiscence but no purulent drainage. some serous drainage. right AKA with edema possibly dependant. ESR elevated. no leukocytosis. afebrile. -no acute surgical intervention necessary. -will monitor wound for now. discussed possible revision with patient if worsening dehiscence. fluid collection noted and could be abscess but likely seroma/hematoma. -okay for diet for now -AM labs -wound care to area of dehiscence (Zeroform dressing, gauze, kerlix) -keep right AKA elevated. thank you for this consultation. will follow with recs. John Valentin July 28, 2017 12:20
[2017-07-28 13:02] VITALS: BP 106/52
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
[2017-07-28 15:57] VITALS: BP 117/80
[2017-07-28 21:00] VITALS: BP 113/72
[2017-07-29] VITALS: BP 100/97
[2017-07-29] MEDS: Morphine Sulfate 4mg/ml Inj IVP PRN ×5 (02:00→21:37)
[2017-07-29 04:00] VITALS: BP 112/58
[2017-07-29 08:00] VITALS: BP 125/51
[2017-07-29] MEDS: Heparin 5000 units/ml inj SUBQ SCH ×2 (08:16→20:18)
[2017-07-29 12:29] VITALS: BP 112/59
--- NOTE | 2017-07-29 14:03 | General Surgery Progress Note ---
General Surgery-Progress Note Subjective Additional Comments no acute events. Objective Last 24 Hour Vital Signs Date Time Temp Pulse Resp B/P (MAP) Pulse Ox O2 Delivery O2 Flow Rate FiO2 07/29/17 13:28 98.2 07/29/17 12:58 98.2 07/29/17 12:29 97.5 82 18 112/59 100 97.5 07/29/17 08:00 98.2 88 18 125/51 98 Room Air 98.2 07/29/17 04:00 98.0 88 19 112/58 97 98.0 07/29/17 04:00 Room Air 07/29/17 00:00 98.1 89 19 100/97 98 98.1 07/29/17 00:00 Room Air 07/28/17 21:00 99.3 95 19 113/72 98 99.3 07/28/17 20:00 Room Air 07/28/17 17:23 98.2 07/28/17 16:25 98.2 07/28/17 15:57 98.2 80 18 117/80 97 98.2 07/28/17 15:55 98.4 I&O Intake and Output 07/28/17 07/29/17 19:00 07:00 Intake Total 913.334 ml 1640.0000 ml Output Total 1200 ml 600 ml Balance -286.666 ml 1040.0000 ml Intake Oral 480 ml 1040 ml IV Total 433.334 ml 600.0000 ml Output Urine Total 1200 ml 600 ml # Voids 3 Dressing: saturated Wound: other - bone exposed today as dehiscense a bit larger Cardiovascular: RSR Respiratory: clear Abdomen: soft, flat, non-tender, present bowel sounds Extremities: other - right AKA with wound a bit larger today. can identify femur stump below wound. Laboratory Tests Test 07/29/17 03:35 Vancomycin Level Trough 8.4 ug/mL (5.0-12.0) Plan Problems: (1) Wound dehiscence Assessment & Plan: 66M hx of recent traumatic right AKA. now with right AKA pain and wound dehiscence. afebrile, HD stable, no leukocytosis, exam as above. CT findings: 6.4 x 2.8 x 5.5 cm collection in the posterior distal soft tissues, deep to the superficial fascia and possibly within the musculature. No enhancing rim. This could represent a routine postoperative fluid collection, but could also represent an abscess Possible abscess vs seroma/hematoma. wound with dehiscence but no purulent drainage. some serous drainage. right AKA with edema possibly dependant. ESR elevated. no leukocytosis. afebrile. can note bone exposed through dehiscence on exam today. lateral and medial aspect of wound intact but apex at area of femur stump with dehiscence. serous drainage. no signs of active infection -no acute surgical intervention necessary. -will monitor wound for now. discussed possible revision with patient if worsening dehiscence. fluid collection noted and could be abscess but likely seroma/hematoma. -okay for diet for now -AM labs -wound care to area of dehiscence (Zeroform dressing, gauze, kerlix) -keep right AKA elevated. thank you for this consultation. will follow with recs. John Valentin July 29, 2017 14:03
--- NOTE | 2017-07-29 15:02 | Infectious Diseases Prog Note ---
Assessment/Plan Assessment/Plan ASSESSMENT AND PLAN: 1. Right leg/stump wound infection, hematoma/seroma > abscess, elevated sed rate , ? osteo - vancomycin and zosyn - check wound culture - surgery f/u, no surgical intervention for now - f/u labs - fevers resolved 2. 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 3. Anemia. 4. Watch creatinine and vancomycin and Zosyn. 5. History of alcohol and drug abuse. 6. Pain management. 7. Neuropathy history. 8. Blindness of the right eye. 9. Neurological disease. 10. Past medical history noted. 11. No allergies. 12. Social history positive for alcohol and drug use per the records. 13. Family history noncontributory. 14. MAR was noted. 15. Case discussed with RN. 16. Continue treatment per primary and consultants. 17. Orders were noted and entered. 18. notes and records noted Subjective Constitutional: Denies: fever, fatigue HEENT: Denies: congestion Respiratory: Denies: shortness of breath Cardiovascular: Denies: chest pain Gastrointestinal/Abdominal: Denies: nausea, vomiting, diarrhea Genitourinary: Denies: dysuria, hematuria Neurologic: Denies: headache Psychiatric: Denies: depression Skin: Denies: rash Hematologic: Denies: bleeding Musculoskeletal: Denies: pain Allergies: Coded Allergies: No Known Allergies (Unverified , 07/27/12) Objective Vital Signs Last 24 Hour Vital Signs Date Time Temp Pulse Resp B/P (MAP) Pulse Ox O2 Delivery O2 Flow Rate FiO2 07/29/17 13:28 98.2 07/29/17 12:58 98.2 07/29/17 12:29 97.5 82 18 112/59 100 97.5 07/29/17 08:00 98.2 88 18 125/51 98 Room Air 98.2 07/29/17 04:00 98.0 88 19 112/58 97 98.0 07/29/17 04:00 Room Air 07/29/17 00:00 98.1 89 19 100/97 98 98.1 07/29/17 00:00 Room Air 07/28/17 21:00 99.3 95 19 113/72 98 99.3 07/28/17 20:00 Room Air 07/28/17 17:23 98.2 5/26/18 16:25 98.2 07/28/17 15:57 98.2 80 18 117/80 97 98.2 07/28/17 15:55 98.4 Height (Feet): 5 Height (Inches): 7.00 Weight (Pounds): 125 General Appearance: no acute distress HEENT: normocephalic, atraumatic, anicteric, mucous membranes moist Respiratory/Chest: lungs clear, normal breath sounds, no respiratory distress, no accessory muscle use Cardiovascular: normal rate, regular rhythm, no gallop/murmur, no JVD Abdomen: normal bowel sounds, soft, non tender, no organomegaly, non distended Genitourinary: other - no claire Extremities: other - right leg stump covered, left leg without cellulitis Skin: no rash 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 No enhancing rim. This could represent a routine postoperative fluid collection, but could also represent an abscess Postsurgical changes, as described. Note that there is a soft tissue defect in the distal stump which appears to extend all the way to the tip of the tip of the stump of the femur, which could be exposed. Correlate with clinical findings Other findings as noted, including degenerative lumbosacral spondylosis Findings discussed by phone with Dr. Elmore in the emergency room at the time of interpretation Chest x-ray - Comparison: none Findings: The heart is mildly enlarged. The lungs and pleural spaces are clear. The patient is rotated to the left. Previously demonstrated borderline interstitial congestion is no longer evident Impression: No acute process Borderline cardiomegaly Microbiology Date/Time Source Procedure Growth Status 07/27/17 12:35 Blood Blood Culture - Preliminary NO GROWTH AFTER 24 HOURS Resulted 07/27/17 12:25 Blood Blood Culture - Preliminary NO GROWTH AFTER 24 HOURS Resulted 07/27/17 16:00 Nasal Nares MRSA Culture - Final NO METHICILLIN RESISTANT STAPH AUREUS... Complete 07/28/17 01:15 Urine,Clean Catch Urine Culture - Preliminary NO GROWTH Resulted 07/27/17 20:54 Leg Right Gram Stain - Final Resulted 07/27/17 20:54 Leg Right Wound Culture - Preliminary Resulted 07/27/17 16:00 Rectum VRE Culture - Final NO VANCOMYCIN RESISTANT ENTEROCOCCUS ... Complete Labs Test 07/27/17 12:25 07/27/17 14:00 07/27/17 19:45 07/28/17 01:15 White Blood Count 7.2 K/UL (4.8-10.8) Red Blood Count 3.57 M/UL (4.70-6.10) Hemoglobin 9.8 G/DL (14.2-18.0) Hematocrit 32.2 % (42.0-52.0) Mean Corpuscular Volume 90 FL (80-99) Mean Corpuscular Hemoglobin 27.5 PG (27.0-31.0) Mean Corpuscular Hemoglobin Concent 30.5 G/DL (32.0-36.0) Red Cell Distribution Width 15.9 % (11.6-14.8) Platelet Count 384 K/UL (150-450) Mean Platelet Volume 5.7 FL (6.5-10.1) Neutrophils (%) (Auto) 66.9 % (45.0-75.0) Lymphocytes (%) (Auto) 20.4 % (20.0-45.0) Monocytes (%) (Auto) 10.5 % (1.0-10.0) Eosinophils (%) (Auto) 0.9 % (0.0-3.0) Basophils (%) (Auto) 1.4 % (0.0-2.0) Prothrombin Time 10.1 SEC (9.30-11.50) Prothromb Time International Ratio 1.0 (0.9-1.1) Activated Partial Thromboplast Time 27 SEC (23-33) Sodium Level 142 MMOL/L (136-145) Potassium Level 4.5 MMOL/L (3.5-5.1) Chloride Level 108 MMOL/L (98-107) Carbon Dioxide Level 25 MMOL/L (21-32) Anion Gap 9 mmol/L (5-15) Blood Urea Nitrogen 15 mg/dL (7-18) Creatinine 0.8 MG/DL (0.55-1.30) Estimat Glomerular Filtration Rate > 60 mL/min (>60) Glucose Level 91 MG/DL (74-106) Lactic Acid Level 2.70 mmol/L (0.66-2.22) 1.70 mmol/L (0.66-2.22) Calcium Level 8.9 MG/DL (8.5-10.1) Total Bilirubin 1.1 MG/DL (0.2-1.0) Direct Bilirubin 0.3 MG/DL (0.0-0.3) Aspartate Amino Transf (AST/SGOT) 76 U/L (15-37) Alanine Aminotransferase (ALT/SGPT) 46 U/L (12-78) Alkaline Phosphatase 124 U/L (46-116) Total Creatine Kinase 186 U/L (26-308) Creatine Kinase MB 1.5 NG/ML (0.0-3.6) Creatine Kinase MB Relative Index 0.8 Troponin I 0.004 ng/mL (0.000-0.056) Total Protein 7.6 G/DL (6.4-8.2) Albumin 2.3 G/DL (3.4-5.0) Globulin 5.3 g/dL Albumin/Globulin Ratio 0.4 (1.0-2.7) Urine Color Pale yellow Yellow Urine Appearance Clear Clear Urine pH 8 (4.5-8.0) 6 (4.5-8.0) Urine Specific [place] 1.005 (1.005-1.035) 1.010 (1.005-1.035) Urine Protein Negative (NEGATIVE) Negative (NEGATIVE) Urine Glucose (UA) Negative (NEGATIVE) Negative (NEGATIVE) Urine Ketones Negative (NEGATIVE) Negative (NEGATIVE) Urine Occult Blood Negative (NEGATIVE) Negative (NEGATIVE) Urine Nitrite Negative (NEGATIVE) Negative (NEGATIVE) Urine Bilirubin Negative (NEGATIVE) Negative (NEGATIVE) Urine Urobilinogen 4 MG/DL (0.0-1.0) 4 MG/DL (0.0-1.0) Urine Leukocyte Esterase Negative (NEGATIVE) Negative (NEGATIVE) Erythrocyte Sedimentation Rate 80 MM/HR (0-20) C-Reactive Protein, Quantitative 1.2 mg/dL (0.00-0.90) Urine RBC 0 /HPF (0 - 0) Urine WBC 0-2 /HPF (0 - 0) Urine Squamous Epithelial Cells Occasional /LPF Urine Bacteria Occasional /HPF (NONE) Test 07/28/17 06:35 07/29/17 03:35 White Blood Count 6.9 K/UL (4.8-10.8) Red Blood Count 3.10 M/UL (4.70-6.10) Hemoglobin 8.4 G/DL (14.2-18.0) Hematocrit 27.5 % (42.0-52.0) Mean Corpuscular Volume 89 FL (80-99) Mean Corpuscular Hemoglobin 27.2 PG (27.0-31.0) Mean Corpuscular Hemoglobin Concent 30.6 G/DL (32.0-36.0) Red Cell Distribution Width 16.3 % (11.6-14.8) Platelet Count 433 K/UL (150-450) Mean Platelet Volume 5.5 FL (6.5-10.1) Neutrophils (%) (Auto) 64.1 % (45.0-75.0) Lymphocytes (%) (Auto) 22.1 % (20.0-45.0) Monocytes (%) (Auto) 11.0 % (1.0-10.0) Eosinophils (%) (Auto) 1.8 % (0.0-3.0) Basophils (%) (Auto) 1.1 % (0.0-2.0) Sodium Level 142 MMOL/L (136-145) Potassium Level 4.0 MMOL/L (3.5-5.1) Chloride Level 109 MMOL/L (98-107) Carbon Dioxide Level 28 MMOL/L (21-32) Anion Gap 6 mmol/L (5-15) Blood Urea Nitrogen 16 mg/dL (7-18) Creatinine 0.9 MG/DL (0.55-1.30) Estimat Glomerular Filtration Rate > 60 mL/min (>60) Glucose Level 92 MG/DL (74-106) Calcium Level 8.1 MG/DL (8.5-10.1) Vancomycin Level Trough 8.4 ug/mL (5.0-12.0) Laboratory Tests Test 07/29/17 03:35 Vancomycin Level Trough 8.4 ug/mL (5.0-12.0) Current Medications Medications (Trade) Dose Ordered Sig/Lisa Route PRN Reason Start Time Stop Time Status Last Admin Dose Admin Acetaminophen (Tylenol) 650 mg Q4H PRN ORAL Mild Pain/Temp > 100.5 07/27/17 19:00 08/26/17 18:59 Acetaminophen/ Hydrocodone Bitart ([place] 10325) 1 tab Q4H PRN ORAL Moderate Pain (Pain Scale 4-6) 07/27/17 19:00 08/03/17 18:59 07/28/17 17:23 Gabapentin (Neurontin) 300 mg THREE TIMES A DAY ORAL 07/27/17 20:00 08/26/17 19:59 07/29/17 13:56 Heparin Sodium (Porcine) (Heparin 5000 units/ml) 5,000 units EVERY 12 HOURS SUBQ 07/27/17 21:00 08/26/17 20:59 07/29/17 08:16 Morphine Sulfate (Morphine Sulfate) 4 mg Q4H PRN IVP Severe Pain (Pain Scale 7-10) 07/27/17 19:00 08/03/17 18:59 07/29/17 12:58 Ondansetron HCl (Zofran) 4 mg Q4H PRN IVP Nausea & Vomiting 07/27/17 19:00 08/26/17 18:59 Piperacillin Sod/ Tazobactam Sod 3.375 gm/Dextrose 100 ml @ 25 mls/hr EVERY 8 HOURS IVPB 07/27/17 23:00 08/01/17 22:59 07/29/17 06:46 Sodium Chloride 1,000 ml @ 75 mls/hr [id number] IV 07/27/17 20:00 08/26/17 19:59 07/27/17 20:53 Trazodone HCl (Desyrel) 50 mg BEDTIME PRN ORAL SLEEP AID 07/27/17 19:00 08/26/17 18:59 07/28/17 22:31 Vancomycin HCl (Vanco rx to dose) 1 ea DAILY PRN MISC Per rx protocol 07/27/17 21:15 08/26/17 21:14 Vancomycin HCl 1 gm/Sodium Chloride 250 ml @ 166.6667 mls/hr Q8H IVPB 07/29/17 05:00 08/03/17 04:59 07/29/17 13:11 Lauren Laws MD July 29, 2017 15:02
--- NOTE | 2017-07-29 18:38 | Internal Med Progress Note ---
Subjective Physician Name Sendy Wyatt Attending Physician Chogn Kraft MD Current Medications Medications (Trade) Dose Ordered Sig/Lisa Route PRN Reason Start Time Stop Time Status Last Admin Dose Admin Acetaminophen (Tylenol) 650 mg Q4H PRN ORAL Mild Pain/Temp > 100.5 07/27/17 19:00 08/26/17 18:59 Acetaminophen/ Hydrocodone Bitart ([place] 10/325) 1 tab Q4H PRN ORAL Moderate Pain (Pain Scale 4-6) 07/27/17 19:00 08/03/17 18:59 07/28/17 17:23 Gabapentin (Neurontin) 300 mg THREE TIMES A DAY ORAL 07/27/17 20:00 08/26/17 19:59 07/29/17 18:24 Heparin Sodium (Porcine) (Heparin 5000 units/ml) 5,000 units EVERY 12 HOURS SUBQ 07/27/17 21:00 08/26/17 20:59 07/29/17 08:16 Morphine Sulfate (Morphine Sulfate) 4 mg Q4H PRN IVP Severe Pain (Pain Scale 7-10) 07/27/17 19:00 08/03/17 18:59 07/29/17 17:24 Ondansetron HCl (Zofran) 4 mg Q4H PRN IVP Nausea & Vomiting 07/27/17 19:00 08/26/17 18:59 Piperacillin Sod/ Tazobactam Sod 3.375 gm/Dextrose 100 ml @ 25 mls/hr EVERY 8 HOURS IVPB 07/27/17 23:00 08/01/17 22:59 07/29/17 14:51 Sodium Chloride 1,000 ml @ 75 mls/hr [id number] IV 07/27/17 20:00 08/26/17 19:59 07/27/17 20:53 Trazodone HCl (Desyrel) 50 mg BEDTIME PRN ORAL SLEEP AID 07/27/17 19:00 08/26/17 18:59 07/28/17 22:31 Vancomycin HCl (Vanco rx to dose) 1 ea DAILY PRN MISC Per rx protocol 07/27/17 21:15 08/26/17 21:14 Vancomycin HCl 1 gm/Sodium Chloride 250 ml @ 166.6667 mls/hr Q8H IVPB 07/29/17 05:00 08/03/17 04:59 07/29/17 13:11 Allergies: Coded Allergies: No Known Allergies (Unverified , 07/27/12) Objective Last Vital Signs Date Time Temp Pulse Resp B/P (MAP) Pulse Ox O2 Delivery O2 Flow Rate FiO2 07/29/17 17:54 98.2 07/29/17 12:29 82 18 112/59 100 07/29/17 08:00 Room Air Laboratory Tests Test 07/29/17 03:35 Vancomycin Level Trough 8.4 ug/mL (5.0-12.0) Microbiology Date/Time Source Procedure Growth Status 07/27/17 12:35 Blood Blood Culture - Preliminary NO GROWTH AFTER 24 HOURS Resulted 07/27/17 12:25 Blood Blood Culture - Preliminary NO GROWTH AFTER 24 HOURS Resulted 07/27/17 16:00 Nasal Nares MRSA Culture - Final NO METHICILLIN RESISTANT STAPH AUREUS... Complete 07/28/17 01:15 Urine,Clean Catch Urine Culture - Preliminary NO GROWTH Resulted 07/27/17 20:54 Leg Right Gram Stain - Final Resulted 07/27/17 20:54 Leg Right Wound Culture - Preliminary Resulted 07/27/17 16:00 Rectum VRE Culture - Final NO VANCOMYCIN RESISTANT ENTEROCOCCUS ... Complete Intake and Output 07/28/17 07/29/17 19:00 07:00 Intake Total 913.334 ml 1640.0000 ml Output Total 1200 ml 600 ml Balance -286.666 ml 1040.0000 ml Intake Oral 480 ml 1040 ml IV Total 433.334 ml 600.0000 ml Output Urine Total 1200 ml 600 ml # Voids 3 Assessment/Plan Assessment/Plan Coded Allergies: No Known Allergies (Unverified , 07/27/12) Medication History Scheduled Cefazolin Sodium (Cefazolin Sodium), 1 GM IJ Q8HR, (Reported) Cefepime Hcl/D5w (Cefepime-Dextrose 1 Gm/50 Ml), 1 GM IVPB DAILY Docusate Sodium* (Docusate Sodium*), 100 MG ORAL TWICE A DAY, (Reported) Gabapentin* (Gabapentin*), 300 MG ORAL THREE TIMES A DAY No Known Medications* (NKM - No Known Medications*), 0 ., (Reported) Trazodone Hcl* (Desyrel*), 50 MG ORAL BEDTIME, (Reported) Vancomycin Hcl/D5w (Vancomycin-D5w 1 G/250 Ml), 1 GM IVPB Q24H Scheduled PRN Hydrocodone Bit/Acetaminophen 5-325* ([place] 5-325*), 1 TAB ORAL Q4H PRN for For Pain, (Reported) Miscellaneous Medications Unable to Obtain Medications (Unable To Obtain Meds), (Reported) Patient History Healthcare decision maker N Resuscitation status Full Code Advanced Directive on File ROS Review of Systems All Other Systems: negative except mentioned in HPI Physical Exam Physical Exam General Appearance: no apparent distress, alert HEENT: normocephalic, atraumatic Neck: non-tender, normal alignment, supple Respiratory/Chest: chest wall non-tender, lungs clear, normal breath sounds Cardiovascular/Chest: normal peripheral pulses, normal rate, regular rhythm Abdomen: normal bowel sounds, non tender, soft Extremities: normal range of motion, non-tender, other - R AKA with pus drainage and sutures to stump Skin Exam: normal pigmentation, warm/dry 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, no motor/sensory deficits, alert, oriented x 3 Last 24 Hour Vital Signs Date Time Temp Pulse Resp B/P (MAP) Pulse Ox O2 Delivery O2 Flow Rate FiO2 07/27/17 20:10 99.7 92 18 126/47 100 99.7 07/27/17 16:53 97 19 127/65 99 Room Air 07/27/17 16:05 97 19 127/65 99 Room Air 07/27/17 13:48 78 16 129/67 99 Room Air 07/27/17 11:54 73 16 118/58 99 Room Air Laboratory Tests Test 07/27/17 12:25 07/27/17 14:00 07/27/17 19:45 White Blood Count 7.2 K/UL (4.8-10.8) Red Blood Count 3.57 M/UL (4.70-6.10) L Hemoglobin 9.8 G/DL (14.2-18.0) L Hematocrit 32.2 % (42.0-52.0) L Mean Corpuscular Volume 90 FL (80-99) Mean Corpuscular Hemoglobin 27.5 PG (27.0-31.0) Mean Corpuscular Hemoglobin Concent 30.5 G/DL (32.0-36.0) L Red Cell Distribution Width 15.9 % (11.6-14.8) H Platelet Count 384 K/UL (150-450) Mean Platelet Volume 5.7 FL (6.5-10.1) L Neutrophils (%) (Auto) 66.9 % (45.0-75.0) Lymphocytes (%) (Auto) 20.4 % (20.0-45.0) Monocytes (%) (Auto) 10.5 % (1.0-10.0) H Eosinophils (%) (Auto) 0.9 % (0.0-3.0) Basophils (%) (Auto) 1.4 % (0.0-2.0) Prothrombin Time 10.1 SEC (9.30-11.50) Prothromb Time International Ratio 1.0 (0.9-1.1) Activated Partial Thromboplast Time 27 SEC (23-33) Sodium Level 142 MMOL/L (136-145) Potassium Level 4.5 MMOL/L (3.5-5.1) Chloride Level 108 MMOL/L (98-107) H Carbon Dioxide Level 25 MMOL/L (21-32) Anion Gap 9 mmol/L (5-15) Blood Urea Nitrogen 15 mg/dL (7-18) Creatinine 0.8 MG/DL (0.55-1.30) Estimat Glomerular Filtration Rate > 60 mL/min (>60) Glucose Level 91 MG/DL (74-106) Lactic Acid Level 2.70 mmol/L (0.66-2.22) H 1.70 mmol/L (0.66-2.22) Calcium Level 8.9 MG/DL (8.5-10.1) Total Bilirubin 1.1 MG/DL (0.2-1.0) H Direct Bilirubin 0.3 MG/DL (0.0-0.3) Aspartate Amino Transf (AST/SGOT) 76 U/L (15-37) H Alanine Aminotransferase (ALT/SGPT) 46 U/L (12-78) Alkaline Phosphatase 124 U/L (46-116) H Total Creatine Kinase 186 U/L (26-308) Creatine Kinase MB 1.5 NG/ML (0.0-3.6) Creatine Kinase MB Relative Index 0.8 Troponin I 0.004 ng/mL (0.000-0.056) Total Protein 7.6 G/DL (6.4-8.2) Albumin 2.3 G/DL (3.4-5.0) L Globulin 5.3 g/dL Albumin/Globulin Ratio 0.4 (1.0-2.7) L Urine Color Pale yellow Urine Appearance Clear Urine pH 8 (4.5-8.0) Urine Specific [place] 1.005 (1.005-1.035) Urine Protein Negative (NEGATIVE) Urine Glucose (UA) Negative (NEGATIVE) Urine Ketones Negative (NEGATIVE) Urine Occult Blood Negative (NEGATIVE) Urine Nitrite Negative (NEGATIVE) Urine Bilirubin Negative (NEGATIVE) Urine Urobilinogen 4 MG/DL (0.0-1.0) H Urine Leukocyte Esterase Negative (NEGATIVE) Erythrocyte Sedimentation Rate 80 MM/HR (0-20) H C-Reactive Protein, Quantitative 1.2 mg/dL (0.00-0.90) H Height (Feet): 5 Height (Inches): 7.00 Weight (Pounds): 125 Medications Current Medications Medications (Trade) Dose Ordered Sig/Lisa Route PRN Reason Start Time Stop Time Status Last Admin Dose Admin Acetaminophen (Tylenol) 650 mg Q4H PRN ORAL Mild Pain/Temp > 100.5 07/27/17 19:00 08/26/17 18:59 Acetaminophen/ Hydrocodone Bitart ([place] 10/325) 1 tab Q4H PRN ORAL Moderate Pain (Pain Scale 4-6) 07/27/17 19:00 08/03/17 18:59 Gabapentin (Neurontin) 300 mg THREE TIMES A DAY ORAL 07/27/17 20:00 08/26/17 19:59 07/27/17 20:50 Heparin Sodium (Porcine) (Heparin 5000 units/ml) 5,000 units EVERY 12 HOURS SUBQ 07/27/17 21:00 08/26/17 20:59 07/27/17 20:52 Morphine Sulfate (Morphine Sulfate) 4 mg Q4H PRN IVP Severe Pain (Pain Scale 7-10) 07/27/17 19:00 08/03/17 18:59 07/27/17 20:51 Ondansetron HCl (Zofran) 4 mg Q4H PRN IVP Nausea & Vomiting 07/27/17 19:00 08/26/17 18:59 Piperacillin Sod/ Tazobactam Sod 3.375 gm/Dextrose 100 ml @ 25 mls/hr EVERY 8 HOURS IVPB 07/27/17 23:00 08/01/17 22:59 Sodium Chloride 1,000 ml @ 75 mls/hr [id number] IV 07/27/17 20:00 08/26/17 19:59 07/27/17 20:53 Trazodone HCl (Desyrel) 50 mg BEDTIME PRN ORAL SLEEP AID 07/27/17 19:00 08/26/17 18:59 Vancomycin HCl (Vanco rx to dose) 1 ea DAILY PRN MISC Per rx protocol 07/27/17 21:15 08/26/17 21:14 Vancomycin HCl/ Dextrose 250 ml @ 166.667 mls/hr Q12HR@0300,1500 IVPB 07/28/17 03:00 08/02/17 02:59 Assessment/Plan Assessment/Plan Problem List: (1) Wound dehiscence ICD Codes: T81.30XA - Disruption of wound, unspecified, initial encounter SNOMED: 085107100 (2) Blindness ICD Codes: H54.0 - Blindness, both eyes SNOMED: 882199644 (3) Cellulitis ICD Codes: L03.90 - Cellulitis, unspecified SNOMED: 755141378 (4) Extremity pain ICD Codes: M79.609 - Pain in unspecified limb SNOMED: 51551788 (5) Neuropathy ICD Codes: G62.9 - Polyneuropathy, unspecified SNOMED: 734685177 (6) History of right above knee amputation ICD Codes: Z89.611 - Acquired absence of right leg above knee SNOMED: 447231826 Status: progressing Assessment/Plan - ID and general surgery consulted - CT of right stump showing possible abscess vs. infection -keep right AKA elevated. - check plain film XR of right stump to r/o osteomyelitis - IV vancomycin, ceftriaxone, flagyl - f/u wound cx, blood cultures - check UA with culture - pain control and supportive care - IVF DVT Prophylaxis: HSQ Code Status: Full Hospital Classification Declaration: Based on this initial evaluation, and depending on the patient's clinical course, I anticipate that this patient will require hospitalization for 2-3 days for abscess and close respiratory/ hemodynamic monitoring. Disposition: Once the patient is stable to leave the hospital, I anticipate the patient will likely be discharged to the following environment: home with HH vs SNF Sendy Wyatt M.D. July 29, 2017 18:38
[2017-07-29 20:00] VITALS: BP 121/66
[2017-07-29] MEDS: TraZODone 50mg tab ORAL PRN (22:38)
[2017-07-30] VITALS (7 sets, daily range): BP systolic 105–141; BP diastolic 60–73
[2017-07-30] MEDS: Morphine Sulfate 4mg/ml Inj IVP PRN ×3 (02:43→20:43)
[2017-07-30 08:17] LABS: BASOPHILS % (AUTO) 1.6 % (0.0-2.0); EOSINOPHILS % (AUTO) 1.9 % (0.0-3.0); HEMATOCRIT 28.7 % (42.0-52.0); HEMOGLOBIN 8.8 G/DL (14.2-18.0); LYMPHOCYTES % (AUTO) 19.3 % (20.0-45.0); MEAN CORPUSCULAR VOLUME 90 FL (80-99); MONOCYTES % (AUTO) 12.2 % (1.0-10.0); PLATELET COUNT 377 K/UL (150-450); RED BLOOD COUNT 3.18 M/UL (4.70-6.10); RED CELL DISTRIBUTION WIDTH 16.5 % (11.6-14.8); WHITE BLOOD COUNT 6.3 K/UL (4.8-10.8)
[2017-07-30 08:25] LABS: ANION GAP 3 mmol/L (5-15); BLOOD UREA NITROGEN 22 mg/dL (7-18); CALCIUM 8.4 MG/DL (8.5-10.1); CARBON DIOXIDE 28 MMOL/L (21-32); CHLORIDE 107 MMOL/L (98-107); CREATININE 0.9 MG/DL (0.55-1.30); POTASSIUM 3.9 MMOL/L (3.5-5.1); SODIUM 138 MMOL/L (136-145)
[2017-07-30] MEDS: Heparin 5000 units/ml inj SUBQ SCH ×2 (08:53→20:44)
[2017-07-30] MEDS ORDERED: Vancomycin 1gm/D5W 275ml IVPB ONE ×2 (14:00)
--- NOTE | 2017-07-30 14:30 | General Surgery Progress Note ---
General Surgery-Progress Note Subjective Symptoms: improved Additional Comments no acute events. comfortable. Objective Last 24 Hour Vital Signs Date Time Temp Pulse Resp B/P (MAP) Pulse Ox O2 Delivery O2 Flow Rate FiO2 07/30/17 08:00 98.0 80 20 114/60 98 98.0 07/30/17 04:00 98.4 79 18 105/73 100 98.4 07/30/17 00:00 Room Air 07/30/17 00:00 98.3 79 18 119/69 98 98.3 07/29/17 20:00 Room Air 07/29/17 20:00 98.4 81 19 121/66 98 98.4 07/29/17 17:54 98.2 07/29/17 17:24 98.2 I&O Intake and Output 07/29/17 07/30/17 19:00 07:00 Intake Total 1633.3334 ml 2196.6670 ml Output Total 1200 ml 2400 ml Balance 433.3334 ml -203.3330 ml Intake Oral 1200 ml 1280 ml IV Total 433.3334 ml 916.6670 ml Output Urine Total 1200 ml 2400 ml # Voids 3 Dressing: dry Wound: clean Drains: none Cardiovascular: RSR Respiratory: clear Abdomen: soft, flat, non-tender Extremities: edema, tenderness Laboratory Tests Test 07/30/17 07:40 07/30/17 11:59 White Blood Count 6.3 K/UL (4.8-10.8) Red Blood Count 3.18 M/UL (4.70-6.10) L Hemoglobin 8.8 G/DL (14.2-18.0) L Hematocrit 28.7 % (42.0-52.0) L Mean Corpuscular Volume 90 FL (80-99) Mean Corpuscular Hemoglobin 27.7 PG (27.0-31.0) Mean Corpuscular Hemoglobin Concent 30.7 G/DL (32.0-36.0) L Red Cell Distribution Width 16.5 % (11.6-14.8) H Platelet Count 377 K/UL (150-450) Mean Platelet Volume 5.5 FL (6.5-10.1) L Neutrophils (%) (Auto) 65.0 % (45.0-75.0) Lymphocytes (%) (Auto) 19.3 % (20.0-45.0) L Monocytes (%) (Auto) 12.2 % (1.0-10.0) H Eosinophils (%) (Auto) 1.9 % (0.0-3.0) Basophils (%) (Auto) 1.6 % (0.0-2.0) Erythrocyte Sedimentation Rate 71 MM/HR (0-20) H Sodium Level 138 MMOL/L (136-145) Potassium Level 3.9 MMOL/L (3.5-5.1) Chloride Level 107 MMOL/L (98-107) Carbon Dioxide Level 28 MMOL/L (21-32) Anion Gap 3 mmol/L (5-15) L Blood Urea Nitrogen 22 mg/dL (7-18) H Creatinine 0.9 MG/DL (0.55-1.30) Estimat Glomerular Filtration Rate > 60 mL/min (>60) Glucose Level 103 MG/DL (74-106) Calcium Level 8.4 MG/DL (8.5-10.1) L Vancomycin Level Trough 14.7 ug/mL (5.0-12.0) H Plan Problems: (1) Wound dehiscence Assessment & Plan: 66M hx of recent traumatic right AKA. now with right AKA pain and wound dehiscence. afebrile, HD stable, no leukocytosis, exam as above. CT findings: 6.4 x 2.8 x 5.5 cm collection in the posterior distal soft tissues, deep to the superficial fascia and possibly within the musculature. No enhancing rim. This could represent a routine postoperative fluid collection, but could also represent an abscess Possible abscess vs seroma/hematoma. wound with dehiscence but no purulent drainage. some serous drainage. right AKA with edema possibly dependant. ESR elevated. no leukocytosis. afebrile. can note bone exposed through dehiscence on exam today. lateral and medial aspect of wound intact but apex at area of femur stump with dehiscence. serous drainage. no signs of active infection ESR trending down. -no acute surgical intervention necessary. -will monitor wound for now. discussed possible revision with patient if worsening dehiscence. fluid collection noted and could be abscess but likely seroma/hematoma. -okay for diet for now -wound care to area of dehiscence (Zeroform dressing, gauze, kerlix) -keep right AKA elevated. thank you for this consultation. will follow with recs. John Valentin July 30, 2017 14:29
[2017-07-30] MEDS: HYDROcodone/Acetamin 10/325 tab ORAL PRN (14:58)
--- NOTE | 2017-07-30 19:34 | Infectious Diseases Prog Note ---
Assessment/Plan Assessment/Plan ASSESSMENT AND PLAN: 1. gram neg right leg/stump wound infection, hematoma/seroma > abscess, elevated sed rate, less likely osteo if recent amputation - vancomycin and zosyn - check wound culture final - surgery f/u, no surgical intervention for now - f/u labs - fevers resolved - d/w Dunia Mayorga NP 2. 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 3. Anemia. 4. Watch creatinine and vancomycin and Zosyn. 5. History of alcohol and drug abuse. 6. Pain management. 7. Neuropathy history. 8. Blindness of the right eye. 9. Neurological disease. 10. Past medical history noted. 11. No allergies. 12. Social history positive for alcohol and drug use per the records. 13. Family history noncontributory. 14. MAR was noted. 15. Case discussed with RN. 16. Continue treatment per primary and consultants. 17. Orders were noted and entered. 18. notes and records noted Subjective Constitutional: Denies: fever HEENT: Denies: congestion Respiratory: Denies: shortness of breath Cardiovascular: Denies: chest pain Gastrointestinal/Abdominal: Denies: nausea, vomiting, diarrhea Genitourinary: Denies: dysuria Neurologic: Denies: headache Psychiatric: Denies: depression Skin: Denies: rash Hematologic: Denies: bleeding Musculoskeletal: Denies: pain Allergies: Coded Allergies: No Known Allergies (Unverified , 07/27/12) Objective Vital Signs Last 24 Hour Vital Signs Date Time Temp Pulse Resp B/P (MAP) Pulse Ox O2 Delivery O2 Flow Rate FiO2 07/30/17 16:00 97.4 76 20 141/65 99 97.4 07/30/17 12:00 98.0 70 18 110/60 98 98.0 07/30/17 08:00 98.0 80 20 114/60 98 98.0 07/30/17 08:00 Room Air 07/30/17 04:00 98.4 79 18 105/73 100 98.4 07/30/17 00:00 Room Air 07/30/17 00:00 98.3 79 18 119/69 98 98.3 07/29/17 20:00 Room Air 07/29/17 20:00 98.4 81 19 121/66 98 98.4 Height (Feet): 5 Height (Inches): 7.00 Weight (Pounds): 125 General Appearance: no acute distress HEENT: normocephalic, atraumatic, anicteric, mucous membranes moist Respiratory/Chest: lungs clear, normal breath sounds, no respiratory distress, no accessory muscle use Cardiovascular: normal rate, regular rhythm, no gallop/murmur, no JVD Abdomen: normal bowel sounds, soft, non tender, no organomegaly, non distended Genitourinary: other - no claire Extremities: other - right leg aka, wound covered Skin: no rash 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 No enhancing rim. This could represent a routine postoperative fluid collection, but could also represent an abscess Postsurgical changes, as described. Note that there is a soft tissue defect in the distal stump which appears to extend all the way to the tip of the tip of the stump of the femur, which could be exposed. Correlate with clinical findings Other findings as noted, including degenerative lumbosacral spondylosis Findings discussed by phone with Dr. Elmore in the emergency room at the time of interpretation Chest x-ray - Comparison: none Findings: The heart is mildly enlarged. The lungs and pleural spaces are clear. The patient is rotated to the left. Previously demonstrated borderline interstitial congestion is no longer evident Impression: No acute process Borderline cardiomegaly Microbiology Date/Time Source Procedure Growth Status 07/28/17 01:15 Urine,Clean Catch Urine Culture - Preliminary NO GROWTH AFTER 24 HOURS Resulted 07/27/17 20:54 Leg Right Gram Stain - Final Resulted 07/27/17 20:54 Wound Culture - Preliminary Gram Negative Bacillus 1 Resulted Laboratory Tests Test 07/30/17 07:40 07/30/17 11:59 White Blood Count 6.3 K/UL (4.8-10.8) Red Blood Count 3.18 M/UL (4.70-6.10) L Hemoglobin 8.8 G/DL (14.2-18.0) L Hematocrit 28.7 % (42.0-52.0) L Mean Corpuscular Volume 90 FL (80-99) Mean Corpuscular Hemoglobin 27.7 PG (27.0-31.0) Mean Corpuscular Hemoglobin Concent 30.7 G/DL (32.0-36.0) L Red Cell Distribution Width 16.5 % (11.6-14.8) H Platelet Count 377 K/UL (150-450) Mean Platelet Volume 5.5 FL (6.5-10.1) L Neutrophils (%) (Auto) 65.0 % (45.0-75.0) Lymphocytes (%) (Auto) 19.3 % (20.0-45.0) L Monocytes (%) (Auto) 12.2 % (1.0-10.0) H Eosinophils (%) (Auto) 1.9 % (0.0-3.0) Basophils (%) (Auto) 1.6 % (0.0-2.0) Erythrocyte Sedimentation Rate 71 MM/HR (0-20) H Sodium Level 138 MMOL/L (136-145) Potassium Level 3.9 MMOL/L (3.5-5.1) Chloride Level 107 MMOL/L (98-107) Carbon Dioxide Level 28 MMOL/L (21-32) Anion Gap 3 mmol/L (5-15) L Blood Urea Nitrogen 22 mg/dL (7-18) H Creatinine 0.9 MG/DL (0.55-1.30) Estimat Glomerular Filtration Rate > 60 mL/min (>60) Glucose Level 103 MG/DL (74-106) Calcium Level 8.4 MG/DL (8.5-10.1) L Vancomycin Level Trough 14.7 ug/mL (5.0-12.0) H Current Medications Medications (Trade) Dose Ordered Sig/Lisa Route PRN Reason Start Time Stop Time Status Last Admin Dose Admin Acetaminophen (Tylenol) 650 mg Q4H PRN ORAL Mild Pain/Temp > 100.5 07/27/17 19:00 08/26/17 18:59 Acetaminophen/ Hydrocodone Bitart ([place] 10/325) 1 tab Q4H PRN ORAL Moderate Pain (Pain Scale 4-6) 07/27/17 19:00 08/03/17 18:59 07/30/17 14:58 Gabapentin (Neurontin) 300 mg THREE TIMES A DAY ORAL 07/27/17 20:00 08/26/17 19:59 07/30/17 18:11 Heparin Sodium (Porcine) (Heparin 5000 units/ml) 5,000 units EVERY 12 HOURS SUBQ 07/27/17 21:00 08/26/17 20:59 07/30/17 08:53 Morphine Sulfate (Morphine Sulfate) 4 mg Q4H PRN IVP Severe Pain (Pain Scale 7-10) 07/27/17 19:00 08/03/17 18:59 07/30/17 06:39 Ondansetron HCl (Zofran) 4 mg Q4H PRN IVP Nausea & Vomiting 07/27/17 19:00 08/26/17 18:59 Piperacillin Sod/ Tazobactam Sod 3.375 gm/Dextrose 100 ml @ 25 mls/hr EVERY 8 HOURS IVPB 07/27/17 23:00 08/01/17 22:59 07/30/17 16:15 Sodium Chloride 1,000 ml @ 75 mls/hr [id number] IV 07/27/17 20:00 08/26/17 19:59 07/30/17 02:42 Trazodone HCl (Desyrel) 50 mg BEDTIME PRN ORAL SLEEP AID 07/27/17 19:00 08/26/17 18:59 07/29/17 22:38 Vancomycin HCl (Vanco rx to dose) 1 ea DAILY PRN MISC Per rx protocol 07/27/17 21:15 08/26/17 21:14 Vancomycin HCl 1 gm/Dextrose 275 ml @ 183.333 mls/hr Q8HR@0500,1300,2100 IVPB 07/30/17 21:00 08/04/17 20:59 Lauren Laws MD July 30, 2017 19:33
[2017-07-30] MEDS: Vancomycin 1 GM in D5W 275 ML IVPB SCH (20:42)
--- NOTE | 2017-07-30 23:18 | Cardiology Report ---
APPROVED REPORT EKG Measurement Heart [id number] Normal sinus rhythm Normal ECG
--- NOTE | 2017-07-30 23:35 | General Progress Note ---
Assessment/Plan Problem List: (1) Wound dehiscence ICD Codes: T81.30XA - Disruption of wound, unspecified, initial encounter SNOMED: 114572420 (2) Blindness ICD Codes: H54.0 - Blindness, both eyes SNOMED: 208787787 (3) Cellulitis ICD Codes: L03.90 - Cellulitis, unspecified SNOMED: 868233613 (4) Extremity pain ICD Codes: M79.609 - Pain in unspecified limb SNOMED: 84373287 (5) Neuropathy ICD Codes: G62.9 - Polyneuropathy, unspecified SNOMED: 120387609 (6) History of right above knee amputation ICD Codes: Z89.611 - Acquired absence of right leg above knee SNOMED: 682984253 Status: stable, progressing Assessment/Plan - ID and general surgery consulted, appreciate rec's - CT of right stump showing possible abscess vs. infection. no surgical interventions at this time unless wound dehiscence worsening. will continue with IV antibiotics and monitor -keep right AKA elevated. - check plain film XR of right stump to r/o osteomyelitis -- no mention of osteomyelitis but showing gas - IV vancomycin and zosyn per ID - f/u wound cx, blood cultures - check UA with culture - ESR elevated. will check MRI if suspicious for osteomyelitis - pain control and supportive care - IVF DVT Prophylaxis: HSQ Code Status: Full Hospital Classification Declaration: Based on this initial evaluation, and depending on the patient's clinical course, I anticipate that this patient will require hospitalization for 2-3 days for abscess and close respiratory/ hemodynamic monitoring. Disposition: Once the patient is stable to leave the hospital, I anticipate the patient will likely be discharged to the following environment: home with HH vs SNF Subjective Date patient seen: July 30, 2017 Time patient seen: 12:01 Allergies: Coded Allergies: No Known Allergies (Unverified , 07/27/12) Subjective - AF, HDS - denies cp, sob - stump infection wrapped with daily wound care Objective Last 24 Hour Vital Signs Date Time Temp Pulse Resp B/P (MAP) Pulse Ox O2 Delivery O2 Flow Rate FiO2 07/30/17 21:13 97.3 07/30/17 20:43 97.3 07/30/17 19:33 97.3 72 20 109/63 100 Room Air 97.3 5/28/18 16:00 Room Air 07/30/17 16:00 97.4 76 20 141/65 99 97.4 07/30/17 12:00 98.0 70 18 110/60 98 98.0 07/30/17 08:00 98.0 80 20 114/60 98 98.0 07/30/17 08:00 Room Air 07/30/17 04:00 98.4 79 18 105/73 100 98.4 07/30/17 00:00 Room Air 07/30/17 00:00 98.3 79 18 119/69 98 98.3 Intake and Output 07/29/17 07/30/17 19:00 07:00 Intake Total 1633.3334 ml 2196.6670 ml Output Total 1200 ml 2400 ml Balance 433.3334 ml -203.3330 ml Intake Oral 1200 ml 1280 ml IV Total 433.3334 ml 916.6670 ml Output Urine Total 1200 ml 2400 ml # Voids 3 Laboratory Tests 07/30/17 07:40: White Blood Count 6.3, Red Blood Count 3.18L, Hemoglobin 8.8L, Hematocrit 28.7L , Mean Corpuscular Volume 90, Mean Corpuscular Hemoglobin 27.7, Mean Corpuscular Hemoglobin Concent 30.7L, Red Cell Distribution Width 16.5H, Platelet Count 377, Mean Platelet Volume 5.5L, Neutrophils (%) (Auto) 65.0, Lymphocytes (%) (Auto) 19.3L, Monocytes (%) (Auto) 12.2H, Eosinophils (%) (Auto ) 1.9, Basophils (%) (Auto) 1.6, Erythrocyte Sedimentation Rate 71H, Sodium Level 138, Potassium Level 3.9, Chloride Level 107, Carbon Dioxide Level 28, Anion Gap 3L, Blood Urea Nitrogen 22H, Creatinine 0.9, Estimat Glomerular Filtration Rate > 60, Glucose Level 103, Calcium Level 8.4L 07/30/17 11:59: Vancomycin Level Trough 14.7H Height (Feet): 5 Height (Inches): 7.00 Weight (Pounds): 125 General Appearance: no apparent distress, alert EENT: PERRL/EOMI, normal ENT inspection Neck: non-tender, normal alignment, supple Cardiovascular: normal peripheral pulses, normal rate, regular rhythm Respiratory/Chest: chest wall non-tender, lungs clear, normal breath sounds Abdomen: normal bowel sounds, non tender, soft Extremities: other - s/p R AKA with wound dehiscence to right stump 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
[2017-07-31] MEDS: Vancomycin 1 GM in D5W 275 ML IVPB SCH ×3 (03:57→21:42)
[2017-07-31] MEDS: Morphine Sulfate 4mg/ml Inj IVP PRN ×3 (03:58→20:06)
[2017-07-31 03:59] VITALS: BP 115/59
[2017-07-31] MEDS: HYDROcodone/Acetamin 10/325 tab ORAL PRN ×2 (06:53→17:56)
[2017-07-31 08:00] VITALS: BP 113/54
[2017-07-31 08:08] LABS: BASOPHILS % (AUTO) 1.6 % (0.0-2.0); EOSINOPHILS % (AUTO) 1.6 % (0.0-3.0); HEMATOCRIT 29.9 % (42.0-52.0); HEMOGLOBIN 9.3 G/DL (14.2-18.0); LYMPHOCYTES % (AUTO) 18.6 % (20.0-45.0); MEAN CORPUSCULAR VOLUME 88 FL (80-99); MONOCYTES % (AUTO) 10.1 % (1.0-10.0); PLATELET COUNT 369 K/UL (150-450); RED BLOOD COUNT 3.38 M/UL (4.70-6.10); RED CELL DISTRIBUTION WIDTH 16.5 % (11.6-14.8); WHITE BLOOD COUNT 6.7 K/UL (4.8-10.8)
[2017-07-31 08:29] LABS: ANION GAP 7 mmol/L (5-15); BLOOD UREA NITROGEN 21 mg/dL (7-18); CALCIUM 8.8 MG/DL (8.5-10.1); CARBON DIOXIDE 27 MMOL/L (21-32); CHLORIDE 104 MMOL/L (98-107); POTASSIUM 4.4 MMOL/L (3.5-5.1); SODIUM 138 MMOL/L (136-145)
[2017-07-31] MEDS: Heparin 5000 units/ml inj SUBQ SCH ×2 (10:17→20:07)
[2017-07-31 12:00] VITALS: BP 108/58
--- NOTE | 2017-07-31 12:07 | General Surgery Progress Note ---
General Surgery-Progress Note Subjective Symptoms: improved, tolerating diet, passing flatus, BM Additional Comments doing well. comfortable. Objective Last 24 Hour Vital Signs Date Time Temp Pulse Resp B/P (MAP) Pulse Ox O2 Delivery O2 Flow Rate FiO2 07/31/17 08:00 Room Air 07/31/17 08:00 98.2 74 15 113/54 100 98.2 07/31/17 06:53 97.9 07/31/17 04:28 97.9 07/31/17 03:59 97.9 74 20 115/59 99 Room Air 97.9 07/31/17 03:58 98.1 07/30/17 23:46 98.1 76 20 112/68 96 Room Air 98.1 07/30/17 20:43 97.3 07/30/17 19:33 97.3 72 20 109/63 100 Room Air 97.3 07/30/17 16:00 Room Air 07/30/17 16:00 97.4 76 20 141/65 99 97.4 I&O Intake and Output 07/30/17 07/31/17 19:00 07:00 Intake Total 1415 ml 616.666 ml Output Total 1600 ml 2500 ml Balance -185 ml -1883.334 ml Intake Oral 740 ml IV Total 675 ml 616.666 ml Output Urine Total 1600 ml 2500 ml # Voids 3 10 # Bowel Movements 1 1 Cardiovascular: RSR Respiratory: clear Abdomen: soft, flat, non-tender, present bowel sounds Extremities: other - right AKA with wound dehiscence. edema improved. serous drainage. no signs of active infection Laboratory Tests Test 07/31/17 06:20 White Blood Count 6.7 K/UL (4.8-10.8) Red Blood Count 3.38 M/UL (4.70-6.10) L Hemoglobin 9.3 G/DL (14.2-18.0) L Hematocrit 29.9 % (42.0-52.0) L Mean Corpuscular Volume 88 FL (80-99) Mean Corpuscular Hemoglobin 27.4 PG (27.0-31.0) Mean Corpuscular Hemoglobin Concent 31.0 G/DL (32.0-36.0) L Red Cell Distribution Width 16.5 % (11.6-14.8) H Platelet Count 369 K/UL (150-450) Mean Platelet Volume 5.9 FL (6.5-10.1) L Neutrophils (%) (Auto) 68.0 % (45.0-75.0) Lymphocytes (%) (Auto) 18.6 % (20.0-45.0) L Monocytes (%) (Auto) 10.1 % (1.0-10.0) H Eosinophils (%) (Auto) 1.6 % (0.0-3.0) Basophils (%) (Auto) 1.6 % (0.0-2.0) Sodium Level 138 MMOL/L (136-145) Potassium Level 4.4 MMOL/L (3.5-5.1) Chloride Level 104 MMOL/L (98-107) Carbon Dioxide Level 27 MMOL/L (21-32) Anion Gap 7 mmol/L (5-15) Blood Urea Nitrogen 21 mg/dL (7-18) H Creatinine 1.0 MG/DL (0.55-1.30) Estimat Glomerular Filtration Rate > 60 mL/min (>60) Glucose Level 68 MG/DL (74-106) L Calcium Level 8.8 MG/DL (8.5-10.1) Plan Problems: (1) Wound dehiscence Assessment & Plan: 66M hx of recent traumatic right AKA. now with right AKA pain and wound dehiscence. afebrile, HD stable, no leukocytosis, exam as above. CT findings: 6.4 x 2.8 x 5.5 cm collection in the posterior distal soft tissues, deep to the superficial fascia and possibly within the musculature. No enhancing rim. This could represent a routine postoperative fluid collection, but could also represent an abscess Possible abscess vs seroma/hematoma. wound with dehiscence but no purulent drainage. some serous drainage. right AKA with edema possibly dependant. ESR elevated. no leukocytosis. afebrile. can note bone exposed through dehiscence on exam today. lateral and medial aspect of wound intact but apex at area of femur stump with dehiscence. serous drainage. no signs of active infection ESR trending down. no leukocytosis. afebrile. wound stable. -no acute surgical intervention necessary. -diet as tolerated -wound care to area of dehiscence (Zeroform dressing, gauze, kerlix) -keep right AKA elevated. -can d/c from surgical standpoint. can follow up with me as an outpatient or his primary surgeon to monitor wound. dehiscence stable and no signs of infection. hopefully as wound contracts and edema subsides it heal without revision. unfortunately if dehiscence worsening will need revision. can be followed as outpatient. thank you for this consultation. will follow with recs. John Valentin July 31, 2017 12:07
--- NOTE | 2017-07-31 15:17 | Infectious Diseases Prog Note ---
Assessment/Plan Assessment/Plan ASSESSMENT AND PLAN: 1. 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 3. Anemia. 4. Watch creatinine and vancomycin and Zosyn. 5. History of alcohol and drug abuse. 6. Pain management. 7. Neuropathy history. 8. Blindness of the right eye. 9. Neurological disease. 10. Past medical history noted. 11. No allergies. 12. Social history positive for alcohol and drug use per the records. 13. Family history noncontributory. 14. MAR was noted. 15. Case discussed with RN. 16. Continue treatment per primary and consultants. 17. Orders were noted and entered. 18. notes and records noted Subjective Constitutional: Denies: fever HEENT: Denies: congestion Respiratory: Denies: shortness of breath Gastrointestinal/Abdominal: Denies: nausea, vomiting, diarrhea Genitourinary: Reports: other - no claire; Denies: dysuria Neurologic: Denies: headache Psychiatric: Denies: depression Skin: Denies: rash Hematologic: Denies: bleeding Musculoskeletal: Denies: pain Allergies: Coded Allergies: No Known Allergies (Unverified , 07/27/12) Objective Vital Signs Last 24 Hour Vital Signs Date Time Temp Pulse Resp B/P (MAP) Pulse Ox O2 Delivery O2 Flow Rate FiO2 07/31/17 12:00 Room Air 07/31/17 12:00 98.0 78 19 108/58 98 98.0 07/31/17 08:00 Room Air 07/31/17 08:00 98.2 74 15 113/54 100 98.2 07/31/17 06:53 97.9 07/31/17 04:28 97.9 07/31/17 03:59 97.9 74 20 115/59 99 Room Air 97.9 07/31/17 03:58 98.1 07/30/17 23:46 98.1 76 20 112/68 96 Room Air 98.1 07/30/17 20:43 97.3 07/30/17 19:33 97.3 72 20 109/63 100 Room Air 97.3 07/30/17 16:00 Room Air 07/30/17 16:00 97.4 76 20 141/65 99 97.4 Height (Feet): 5 Height (Inches): 7.00 Weight (Pounds): 125 General Appearance: no acute distress HEENT: normocephalic, atraumatic, anicteric, mucous membranes moist Respiratory/Chest: lungs clear, normal breath sounds, no respiratory distress Cardiovascular: normal rate, regular rhythm, no gallop/murmur, no JVD Abdomen: normal bowel sounds, soft, non tender, no organomegaly, non distended Genitourinary: other - no claire Extremities: no cyanosis Skin: no rash 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 No enhancing rim. This could represent a routine postoperative fluid collection, but could also represent an abscess Postsurgical changes, as described. Note that there is a soft tissue defect in the distal stump which appears to extend all the way to the tip of the tip of the stump of the femur, which could be exposed. Correlate with clinical findings Other findings as noted, including degenerative lumbosacral spondylosis Findings discussed by phone with Dr. Elmore in the emergency room at the time of interpretation Chest x-ray - Comparison: none Findings: The heart is mildly enlarged. The lungs and pleural spaces are clear. The patient is rotated to the left. Previously demonstrated borderline interstitial congestion is no longer evident Impression: No acute process Borderline cardiomegaly Microbiology Date/Time Source Procedure Growth Status 07/27/17 12:35 Blood Blood Culture - Preliminary NO GROWTH AFTER 72 HOURS Resulted 07/27/17 16:00 Nasal Nares MRSA Culture - Final NO METHICILLIN RESISTANT STAPH AUREUS... Complete 07/28/17 01:15 Urine,Clean Catch Urine Culture - Final NO GROWTH AFTER 48 HOURS Complete 07/27/17 20:54 Leg Right Gram Stain - Final Complete 07/27/17 20:54 Wound Culture - Final Pseudomonas Aeruginosa Complete Laboratory Tests Test 07/31/17 06:20 White Blood Count 6.7 K/UL (4.8-10.8) Red Blood Count 3.38 M/UL (4.70-6.10) L Hemoglobin 9.3 G/DL (14.2-18.0) L Hematocrit 29.9 % (42.0-52.0) L Mean Corpuscular Volume 88 FL (80-99) Mean Corpuscular Hemoglobin 27.4 PG (27.0-31.0) Mean Corpuscular Hemoglobin Concent 31.0 G/DL (32.0-36.0) L Red Cell Distribution Width 16.5 % (11.6-14.8) H Platelet Count 369 K/UL (150-450) Mean Platelet Volume 5.9 FL (6.5-10.1) L Neutrophils (%) (Auto) 68.0 % (45.0-75.0) Lymphocytes (%) (Auto) 18.6 % (20.0-45.0) L Monocytes (%) (Auto) 10.1 % (1.0-10.0) H Eosinophils (%) (Auto) 1.6 % (0.0-3.0) Basophils (%) (Auto) 1.6 % (0.0-2.0) Sodium Level 138 MMOL/L (136-145) Potassium Level 4.4 MMOL/L (3.5-5.1) Chloride Level 104 MMOL/L (98-107) Carbon Dioxide Level 27 MMOL/L (21-32) Anion Gap 7 mmol/L (5-15) Blood Urea Nitrogen 21 mg/dL (7-18) H Creatinine 1.0 MG/DL (0.55-1.30) Estimat Glomerular Filtration Rate > 60 mL/min (>60) Glucose Level 68 MG/DL (74-106) L Calcium Level 8.8 MG/DL (8.5-10.1) Current Medications Medications (Trade) Dose Ordered Sig/Lisa Route PRN Reason Start Time Stop Time Status Last Admin Dose Admin Acetaminophen (Tylenol) 650 mg Q4H PRN ORAL Mild Pain/Temp > 100.5 07/27/17 19:00 08/26/17 18:59 Acetaminophen/ Hydrocodone Bitart ([place] 10325) 1 tab Q4H PRN ORAL Moderate Pain (Pain Scale 4-6) 07/27/17 19:00 08/03/17 18:59 07/31/17 06:53 Gabapentin (Neurontin) 300 mg THREE TIMES A DAY ORAL 07/27/17 20:00 08/26/17 19:59 07/31/17 14:09 Heparin Sodium (Porcine) (Heparin 5000 units/ml) 5,000 units EVERY 12 HOURS SUBQ 07/27/17 21:00 08/26/17 20:59 07/31/17 10:17 Morphine Sulfate (Morphine Sulfate) 4 mg Q4H PRN IVP Severe Pain (Pain Scale 7-10) 07/27/17 19:00 08/03/17 18:59 07/31/17 15:01 Ondansetron HCl (Zofran) 4 mg Q4H PRN IVP Nausea & Vomiting 07/27/17 19:00 08/26/17 18:59 Piperacillin Sod/ Tazobactam Sod 3.375 gm/Dextrose 100 ml @ 25 mls/hr EVERY 8 HOURS IVPB 07/30/17 22:00 08/04/17 21:59 07/31/17 14:11 Sodium Chloride 1,000 ml @ 75 mls/hr [id number] IV 07/27/17 20:00 08/26/17 19:59 07/31/17 03:57 Trazodone HCl (Desyrel) 50 mg BEDTIME PRN ORAL SLEEP AID 07/27/17 19:00 08/26/17 18:59 07/29/17 22:38 Vancomycin HCl (Vanco rx to dose) 1 ea DAILY PRN MISC Per rx protocol 07/27/17 21:15 08/26/17 21:14 Vancomycin HCl 1 gm/Dextrose 275 ml @ 183.333 mls/hr Q8HR@0500,1300,2100 IVPB 07/30/17 21:00 08/04/17 20:59 07/31/17 12:46 Lauren Laws MD July 31, 2017 15:17
[2017-07-31 16:00] VITALS: BP 124/55
[2017-07-31 21:00] VITALS: BP 111/57
--- NOTE | 2017-07-31 21:22 | General Progress Note ---
Assessment/Plan Problem List: (1) Wound dehiscence ICD Codes: T81.30XA - Disruption of wound, unspecified, initial encounter SNOMED: 497183053 (2) Blindness ICD Codes: H54.0 - Blindness, both eyes SNOMED: 850029748 (3) Cellulitis ICD Codes: L03.90 - Cellulitis, unspecified SNOMED: 861550118 (4) Extremity pain ICD Codes: M79.609 - Pain in unspecified limb SNOMED: 83530623 (5) Neuropathy ICD Codes: G62.9 - Polyneuropathy, unspecified SNOMED: 910959506 (6) History of right above knee amputation ICD Codes: Z89.611 - Acquired absence of right leg above knee SNOMED: 503851425 Status: stable, progressing Assessment/Plan - ID and general surgery consulted, appreciate rec's - no surgical intervention at this time - CT of right stump showing possible abscess vs. infection. no surgical interventions at this time unless wound dehiscence worsening. will continue with IV antibiotics and monitor -keep right AKA elevated. - check plain film XR of right stump to r/o osteomyelitis -- no mention of osteomyelitis but showing gas - IV vancomycin and zosyn per ID - f/u wound cx, blood cultures - check UA with culture - ESR elevated. will check MRI if suspicious for osteomyelitis - pain control and supportive care - IVF CLEARED FOR DISCHARGE FROM ID AND GENERAL SURGERY. CONTINUE LEVAQUIN AND BACTRIM FOR 1 MORE WEEK WITH CONTINUED WOUND CARE AT SNF. PENDING SNF PLACEMENT. DVT Prophylaxis: HSQ Code Status: Full Hospital Classification Declaration: Based on this initial evaluation, and depending on the patient's clinical course, I anticipate that this patient will require hospitalization for 2-3 days for abscess and close respiratory/ hemodynamic monitoring. Disposition: Once the patient is stable to leave the hospital, I anticipate the patient will likely be discharged to the following environment: home with vs SNF Subjective Date patient seen: July 31, 2017 Time patient seen: 11:00 Allergies: Coded Allergies: No Known Allergies (Unverified , 07/27/12) Subjective - doing well - AF, HDS - pending placement to SNF Objective Last 24 Hour Vital Signs Date Time Temp Pulse Resp B/P (MAP) Pulse Ox O2 Delivery O2 Flow Rate FiO2 07/31/17 20:36 98.0 07/31/17 20:06 98.0 5/29/18 16:00 98.0 84 20 124/55 98 98.0 07/31/17 16:00 Room Air 07/31/17 12:00 Room Air 07/31/17 12:00 98.0 78 19 108/58 98 98.0 07/31/17 08:00 Room Air 07/31/17 08:00 98.2 74 15 113/54 100 98.2 07/31/17 06:53 97.9 07/31/17 03:59 97.9 74 20 115/59 99 Room Air 97.9 07/31/17 03:58 98.1 07/30/17 23:46 98.1 76 20 112/68 96 Room Air 98.1 Intake and Output 07/30/17 07/31/17 19:00 07:00 Intake Total 1415 ml 616.666 ml Output Total 1600 ml 2500 ml Balance -185 ml -1883.334 ml Intake Oral 740 ml IV Total 675 ml 616.666 ml Output Urine Total 1600 ml 2500 ml # Voids 3 10 # Bowel Movements 1 1 Laboratory Tests 07/31/17 06:20: White Blood Count 6.7, Red Blood Count 3.38L, Hemoglobin 9.3L, Hematocrit 29.9L , Mean Corpuscular Volume 88, Mean Corpuscular Hemoglobin 27.4, Mean Corpuscular Hemoglobin Concent 31.0L, Red Cell Distribution Width 16.5H, Platelet Count 369, Mean Platelet Volume 5.9L, Neutrophils (%) (Auto) 68.0, Lymphocytes (%) (Auto) 18.6L, Monocytes (%) (Auto) 10.1H, Eosinophils (%) (Auto ) 1.6, Basophils (%) (Auto) 1.6, Sodium Level 138, Potassium Level 4.4, Chloride Level 104, Carbon Dioxide Level 27, Anion Gap 7, Blood Urea Nitrogen 21H, Creatinine 1.0, Estimat Glomerular Filtration Rate > 60, Glucose Level 68L , Calcium Level 8.8 Height (Feet): 5 Height (Inches): 7.00 Weight (Pounds): 125 General Appearance: no apparent distress, alert EENT: normal ENT inspection Neck: non-tender, normal alignment, supple Cardiovascular: normal peripheral pulses, normal rate, regular rhythm Respiratory/Chest: chest wall non-tender, lungs clear, normal breath sounds Abdomen: normal bowel sounds, non tender, soft Extremities: other - right AKA with wound dehiscence to stump Dunia Paz NP July 31, 2017 21:22
[2017-07-31] MEDS ORDERED: BACTRIM DS TAB1 EAC1 ORAL (21:25)
[2017-07-31] MEDS ORDERED: LEVAQUIN750 MG ORAL (21:25)
[2017-08-01] MEDS: Morphine Sulfate 4mg/ml Inj IVP PRN ×5 (00:27→20:22)
[2017-08-01] MEDS: Vancomycin 1 GM in D5W 275 ML IVPB SCH ×3 (02:52→20:56)
[2017-08-01] MEDS: HYDROcodone/Acetamin 10/325 tab ORAL PRN (03:36)
[2017-08-01 07:12] LABS: BASOPHILS % (AUTO) 1.5 % (0.0-2.0); EOSINOPHILS % (AUTO) 1.8 % (0.0-3.0); HEMATOCRIT 29.4 % (42.0-52.0); LYMPHOCYTES % (AUTO) 19.3 % (20.0-45.0); MEAN CORPUSCULAR VOLUME 90 FL (80-99); MONOCYTES % (AUTO) 14.1 % (1.0-10.0); NEUTROPHILS % (AUTO) 63.3 % (45.0-75.0); PLATELET COUNT 379 K/UL (150-450); RED BLOOD COUNT 3.25 M/UL (4.70-6.10); RED CELL DISTRIBUTION WIDTH 16.7 % (11.6-14.8); WHITE BLOOD COUNT 5.8 K/UL (4.8-10.8)
[2017-08-01 07:26] LABS: ANION GAP 6 mmol/L (5-15); BLOOD UREA NITROGEN 13 mg/dL (7-18); CALCIUM 8.2 MG/DL (8.5-10.1); CARBON DIOXIDE 27 MMOL/L (21-32); CHLORIDE 107 MMOL/L (98-107); POTASSIUM 3.9 MMOL/L (3.5-5.1); SODIUM 140 MMOL/L (136-145)
[2017-08-01 08:00] VITALS: BP 108/61
[2017-08-01] MEDS: Heparin 5000 units/ml inj SUBQ SCH ×2 (08:44→20:21)
[2017-08-01 12:00] VITALS: BP 127/83
--- NOTE | 2017-08-01 13:07 | General Surgery Progress Note ---
General Surgery-Progress Note Subjective Symptoms: improved, tolerating diet, passing flatus, BM Objective Last 24 Hour Vital Signs Date Time Temp Pulse Resp B/P (MAP) Pulse Ox O2 Delivery O2 Flow Rate FiO2 08/01/17 12:00 97.5 76 20 127/83 97 97.5 08/01/17 08:00 98.2 80 18 108/61 99 98.2 08/01/17 06:47 97.7 08/01/17 04:35 97.7 08/01/17 03:36 97.7 08/01/17 00:57 97.7 08/01/17 00:27 97.7 07/31/17 21:00 97.7 74 16 111/57 95 Room Air 97.7 07/31/17 20:06 98.0 07/31/17 16:00 98.0 84 20 124/55 98 98.0 07/31/17 16:00 Room Air I&O Intake and Output 07/31/17 08/01/17 19:00 07:00 Intake Total 1425 ml 250 ml Output Total 1200 ml 470 ml Balance 225 ml -220 ml Intake Oral 600 ml 250 ml IV Total 825 ml Output Urine Total 1200 ml 470 ml # Voids 4 # Bowel Movements 2 Dressing: saturated Wound: clean Drains: none Cardiovascular: RSR Respiratory: clear Abdomen: soft, flat, non-tender Extremities: edema, tenderness, no cyanosis Laboratory Tests Test 08/01/17 05:50 White Blood Count 5.8 K/UL (4.8-10.8) Red Blood Count 3.25 M/UL (4.70-6.10) L Hemoglobin 9.0 G/DL (14.2-18.0) L Hematocrit 29.4 % (42.0-52.0) L Mean Corpuscular Volume 90 FL (80-99) Mean Corpuscular Hemoglobin 27.7 PG (27.0-31.0) Mean Corpuscular Hemoglobin Concent 30.6 G/DL (32.0-36.0) L Red Cell Distribution Width 16.7 % (11.6-14.8) H Platelet Count 379 K/UL (150-450) Mean Platelet Volume 6.1 FL (6.5-10.1) L Neutrophils (%) (Auto) 63.3 % (45.0-75.0) Lymphocytes (%) (Auto) 19.3 % (20.0-45.0) L Monocytes (%) (Auto) 14.1 % (1.0-10.0) H Eosinophils (%) (Auto) 1.8 % (0.0-3.0) Basophils (%) (Auto) 1.5 % (0.0-2.0) Sodium Level 140 MMOL/L (136-145) Potassium Level 3.9 MMOL/L (3.5-5.1) Chloride Level 107 MMOL/L (98-107) Carbon Dioxide Level 27 MMOL/L (21-32) Anion Gap 6 mmol/L (5-15) Blood Urea Nitrogen 13 mg/dL (7-18) Creatinine 1.0 MG/DL (0.55-1.30) Estimat Glomerular Filtration Rate > 60 mL/min (>60) Glucose Level 108 MG/DL (74-106) H Calcium Level 8.2 MG/DL (8.5-10.1) L Plan Problems: (1) Wound dehiscence Assessment & Plan: 66M hx of recent traumatic right AKA. now with right AKA pain and wound dehiscence. afebrile, HD stable, no leukocytosis, exam as above. CT findings: 6.4 x 2.8 x 5.5 cm collection in the posterior distal soft tissues, deep to the superficial fascia and possibly within the musculature. No enhancing rim. This could represent a routine postoperative fluid collection, but could also represent an abscess Possible abscess vs seroma/hematoma. wound with dehiscence but no purulent drainage. some serous drainage. right AKA with edema possibly dependant. ESR elevated. no leukocytosis. afebrile. can note bone exposed through dehiscence on exam today. lateral and medial aspect of wound intact but apex at area of femur stump with dehiscence. serous drainage. no signs of active infection ESR trending down. no leukocytosis. afebrile. wound stable. -no acute surgical intervention necessary. -diet as tolerated -wound care to area of dehiscence (Zeroform dressing, gauze, kerlix) -keep right AKA elevated. -can d/c from surgical standpoint. can follow up with me as an outpatient or his primary surgeon to monitor wound. dehiscence stable and no signs of infection. hopefully as wound contracts and edema subsides it heal without revision. unfortunately if dehiscence worsening will need revision. can be followed as outpatient. thank you for this consultation. will follow with recs. John Valentin August 01, 2017 13:06
--- NOTE | 2017-08-01 13:19 | Infectious Diseases Prog Note ---
Assessment/Plan Assessment/Plan ASSESSMENT AND PLAN: 1. pseudomonas right leg/stump wound infection, hematoma/seroma > abscess, elevated sed rate, less likely osteo if recent amputation - vancomycin and zosyn iv for now - surgery f/u, no surgical intervention for now - f/u labs - fevers resolved - d/w Dunia Mayorga NP about abx - can discharge on bactrim and levofloxacin) x 7 days to complete abx course - continue local wound care 2. 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 3. Anemia. 4. Watch creatinine and vancomycin and Zosyn. 5. History of alcohol and drug abuse. 6. Pain management. 7. Neuropathy history. 8. Blindness of the right eye. 9. Neurological disease. 10. Past medical history noted. 11. No allergies. 12. Social history positive for alcohol and drug use per the records. 13. Family history noncontributory. 14. MAR was noted. 15. Case discussed with RN. 16. Continue treatment per primary and consultants. 17. Orders were noted and entered. 18. notes and records noted Subjective Constitutional: Reports: fatigue; Denies: fever HEENT: Denies: congestion Respiratory: Denies: shortness of breath Cardiovascular: Denies: chest pain Gastrointestinal/Abdominal: Denies: nausea Genitourinary: Reports: other - no claire; Denies: dysuria, hematuria Neurologic: Denies: headache Psychiatric: Denies: depression Skin: Denies: rash Hematologic: Denies: bleeding Musculoskeletal: Denies: pain Allergies: Coded Allergies: No Known Allergies (Unverified , 07/27/12) Objective Vital Signs Last 24 Hour Vital Signs Date Time Temp Pulse Resp B/P (MAP) Pulse Ox O2 Delivery O2 Flow Rate FiO2 08/01/17 12:00 97.5 76 20 127/83 97 97.5 08/01/17 08:00 98.2 80 18 108/61 99 98.2 08/01/17 06:47 97.7 08/01/17 04:35 97.7 08/01/17 03:36 97.7 08/01/17 00:57 97.7 08/01/17 00:27 97.7 07/31/17 21:00 97.7 74 16 111/57 95 Room Air 97.7 07/31/17 20:06 98.0 07/31/17 16:00 98.0 84 20 124/55 98 98.0 07/31/17 16:00 Room Air Height (Feet): 5 Height (Inches): 7.00 Weight (Pounds): 145 General Appearance: no acute distress HEENT: normocephalic, atraumatic, anicteric, mucous membranes moist, EOMI, supple, no JVD Respiratory/Chest: chest wall non-tender, lungs clear, no respiratory distress , no accessory muscle use Cardiovascular: normal rate, regular rhythm, no gallop/murmur, no JVD Abdomen: normal bowel sounds, soft, non tender, no organomegaly, non distended Genitourinary: other - no claire Extremities: other - right leg aka - wound noted, still with slogh and open Skin: no rash 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 No enhancing rim. This could represent a routine postoperative fluid collection, but could also represent an abscess Postsurgical changes, as described. Note that there is a soft tissue defect in the distal stump which appears to extend all the way to the tip of the tip of the stump of the femur, which could be exposed. Correlate with clinical findings Other findings as noted, including degenerative lumbosacral spondylosis Findings discussed by phone with Dr. Elmore in the emergency room at the time of interpretation Chest x-ray - Comparison: none Findings: The heart is mildly enlarged. The lungs and pleural spaces are clear. The patient is rotated to the left. Previously demonstrated borderline interstitial congestion is no longer evident Impression: No acute process Borderline cardiomegaly Microbiology Date/Time Source Procedure Growth Status 07/27/17 12:35 Blood Blood Culture - Preliminary NO GROWTH AFTER 4 DAYS Resulted 07/27/17 16:00 Nasal Nares MRSA Culture - Final NO METHICILLIN RESISTANT STAPH AUREUS... Complete 07/28/17 01:15 Urine,Clean Catch Urine Culture - Final NO GROWTH AFTER 48 HOURS Complete 07/27/17 20:54 Leg Right Gram Stain - Final Complete 07/27/17 20:54 Wound Culture - Final Pseudomonas Aeruginosa Complete Laboratory Tests Test 08/01/17 05:50 White Blood Count 5.8 K/UL (4.8-10.8) Red Blood Count 3.25 M/UL (4.70-6.10) L Hemoglobin 9.0 G/DL (14.2-18.0) L Hematocrit 29.4 % (42.0-52.0) L Mean Corpuscular Volume 90 FL (80-99) Mean Corpuscular Hemoglobin 27.7 PG (27.0-31.0) Mean Corpuscular Hemoglobin Concent 30.6 G/DL (32.0-36.0) L Red Cell Distribution Width 16.7 % (11.6-14.8) H Platelet Count 379 K/UL (150-450) Mean Platelet Volume 6.1 FL (6.5-10.1) L Neutrophils (%) (Auto) 63.3 % (45.0-75.0) Lymphocytes (%) (Auto) 19.3 % (20.0-45.0) L Monocytes (%) (Auto) 14.1 % (1.0-10.0) H Eosinophils (%) (Auto) 1.8 % (0.0-3.0) Basophils (%) (Auto) 1.5 % (0.0-2.0) Sodium Level 140 MMOL/L (136-145) Potassium Level 3.9 MMOL/L (3.5-5.1) Chloride Level 107 MMOL/L (98-107) Carbon Dioxide Level 27 MMOL/L (21-32) Anion Gap 6 mmol/L (5-15) Blood Urea Nitrogen 13 mg/dL (7-18) Creatinine 1.0 MG/DL (0.55-1.30) Estimat Glomerular Filtration Rate > 60 mL/min (>60) Glucose Level 108 MG/DL (74-106) H Calcium Level 8.2 MG/DL (8.5-10.1) L Current Medications Medications (Trade) Dose Ordered Sig/Lisa Route PRN Reason Start Time Stop Time Status Last Admin Dose Admin Acetaminophen (Tylenol) 650 mg Q4H PRN ORAL Mild Pain/Temp > 100.5 07/27/17 19:00 08/26/17 18:59 Acetaminophen/ Hydrocodone Bitart ([place] 10325) 1 tab Q4H PRN ORAL Moderate Pain (Pain Scale 4-6) 07/27/17 19:00 08/03/17 18:59 08/01/17 03:36 Gabapentin (Neurontin) 300 mg THREE TIMES A DAY ORAL 07/27/17 20:00 08/26/17 19:59 08/01/17 08:40 Heparin Sodium (Porcine) (Heparin 5000 units/ml) 5,000 units EVERY 12 HOURS SUBQ 07/27/17 21:00 08/26/17 20:59 08/01/17 08:44 Morphine Sulfate (Morphine Sulfate) 4 mg Q4H PRN IVP Severe Pain (Pain Scale 7-10) 07/27/17 19:00 08/03/17 18:59 08/01/17 11:04 Ondansetron HCl (Zofran) 4 mg Q4H PRN IVP Nausea & Vomiting 07/27/17 19:00 08/26/17 18:59 Piperacillin Sod/ Tazobactam Sod 3.375 gm/Dextrose 100 ml @ 25 mls/hr EVERY 8 HOURS IVPB 07/30/17 22:00 08/04/17 21:59 08/01/17 05:13 Sodium Chloride 1,000 ml @ 75 mls/hr [id number] IV 07/27/17 20:00 08/26/17 19:59 08/01/17 06:47 Trazodone HCl (Desyrel) 50 mg BEDTIME PRN ORAL SLEEP AID 07/27/17 19:00 08/26/17 18:59 07/29/17 22:38 Vancomycin HCl (Vanco rx to dose) 1 ea DAILY PRN MISC Per rx protocol 07/27/17 21:15 08/26/17 21:14 Vancomycin HCl 1 gm/Dextrose 275 ml @ 183.333 mls/hr Q8HR@0500,1300,2100 IVPB 07/30/17 21:00 08/04/17 20:59 07/31/17 21:42 Lauren Laws MD August 01, 2017 13:19
--- NOTE | 2017-08-01 14:20 | General Progress Note ---
Assessment/Plan Problem List: (1) Wound dehiscence ICD Codes: T81.30XA - Disruption of wound, unspecified, initial encounter SNOMED: 388463098 (2) Blindness ICD Codes: H54.0 - Blindness, both eyes SNOMED: 203238900 (3) Cellulitis ICD Codes: L03.90 - Cellulitis, unspecified SNOMED: 255076000 (4) Extremity pain ICD Codes: M79.609 - Pain in unspecified limb SNOMED: 76303281 (5) Neuropathy ICD Codes: G62.9 - Polyneuropathy, unspecified SNOMED: 416672393 (6) History of right above knee amputation ICD Codes: Z89.611 - Acquired absence of right leg above knee SNOMED: 604531876 Status: stable, progressing Assessment/Plan - ID and general surgery consulted, appreciate rec's - no surgical intervention at this time - CT of right stump showing possible abscess vs. infection. no surgical interventions at this time unless wound dehiscence worsening. will continue with IV antibiotics and monitor -keep right AKA elevated. - check plain film XR of right stump to r/o osteomyelitis -- no mention of osteomyelitis but showing gas - IV vancomycin and zosyn per ID - f/u wound cx, blood cultures - check UA with culture - ESR elevated. will check MRI if suspicious for osteomyelitis - pain control and supportive care - IVF CLEARED FOR DISCHARGE FROM ID AND GENERAL SURGERY. CONTINUE LEVAQUIN AND BACTRIM FOR 6 more days WITH CONTINUED WOUND CARE AT SNF. PENDING SNF PLACEMENT. DVT Prophylaxis: HSQ Code Status: Full Hospital Classification Declaration: Based on this initial evaluation, and depending on the patient's clinical course, I anticipate that this patient will require hospitalization for 2-3 days for abscess and close respiratory/ hemodynamic monitoring. Disposition: Once the patient is stable to leave the hospital, I anticipate the patient will likely be discharged to the following environment: home with vs SNF Subjective Date patient seen: August 01, 2017 Time patient seen: 12:00 Allergies: Coded Allergies: No Known Allergies (Unverified , 07/27/12) Subjective - doing well - AF, HDS - pending placement to SNF - wound clean Objective Last 24 Hour Vital Signs Date Time Temp Pulse Resp B/P (MAP) Pulse Ox O2 Delivery O2 Flow Rate FiO2 08/01/17 12:00 97.5 76 20 127/83 97 97.5 08/01/17 08:00 98.2 80 18 108/61 99 98.2 08/01/17 06:47 97.7 08/01/17 04:35 97.7 08/01/17 03:36 97.7 08/01/17 00:57 97.7 08/01/17 00:27 97.7 07/31/17 21:00 97.7 74 16 111/57 95 Room Air 97.7 07/31/17 20:06 98.0 07/31/17 16:00 98.0 84 20 124/55 98 98.0 07/31/17 16:00 Room Air Intake and Output 07/31/17 08/01/17 19:00 07:00 Intake Total 1425 ml 250 ml Output Total 1200 ml 470 ml Balance 225 ml -220 ml Intake Oral 600 ml 250 ml IV Total 825 ml Output Urine Total 1200 ml 470 ml # Voids 4 # Bowel Movements 2 Laboratory Tests 08/01/17 05:50: White Blood Count 5.8, Red Blood Count 3.25L, Hemoglobin 9.0L, Hematocrit 29.4L , Mean Corpuscular Volume 90, Mean Corpuscular Hemoglobin 27.7, Mean Corpuscular Hemoglobin Concent 30.6L, Red Cell Distribution Width 16.7H, Platelet Count 379, Mean Platelet Volume 6.1L, Neutrophils (%) (Auto) 63.3, Lymphocytes (%) (Auto) 19.3L, Monocytes (%) (Auto) 14.1H, Eosinophils (%) (Auto ) 1.8, Basophils (%) (Auto) 1.5, Sodium Level 140, Potassium Level 3.9, Chloride Level 107, Carbon Dioxide Level 27, Anion Gap 6, Blood Urea Nitrogen 13 , Creatinine 1.0, Estimat Glomerular Filtration Rate > 60, Glucose Level 108H, Calcium Level 8.2L Height (Feet): 5 Height (Inches): 7.00 Weight (Pounds): 145 General Appearance: no apparent distress, alert EENT: PERRL/EOMI, normal ENT inspection, other - blind Neck: non-tender, normal alignment, supple Cardiovascular: normal peripheral pulses, normal rate, regular rhythm Respiratory/Chest: chest wall non-tender, lungs clear, normal breath sounds Abdomen: normal bowel sounds, non tender, soft Extremities: other - R AKA with clean wound and sutures present 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
[2017-08-01 16:00] VITALS: BP 116/57
[2017-08-01 19:41] VITALS: BP 113/60
[2017-08-01] MEDS ORDERED: Tubing IV Secondary IV ONE (20:08)
[2017-08-01] MEDS ORDERED: NS 275ml ONE (20:08)
[2017-08-02] VITALS: BP 115/55
[2017-08-02] MEDS: Morphine Sulfate 4mg/ml Inj IVP PRN ×3 (00:25→21:35)
[2017-08-02 04:00] VITALS: BP 105/59
[2017-08-02] MEDS: Vancomycin 1 GM in D5W 275 ML IVPB SCH ×3 (04:03→19:30)
[2017-08-02 08:20] LABS: ANION GAP 7 mmol/L (5-15); BLOOD UREA NITROGEN 15 mg/dL (7-18); CALCIUM 8.5 MG/DL (8.5-10.1); CARBON DIOXIDE 27 MMOL/L (21-32); CHLORIDE 104 MMOL/L (98-107); CREATININE 0.9 MG/DL (0.55-1.30); SODIUM 138 MMOL/L (136-145)
[2017-08-02 08:21] LABS: BASOPHILS % (AUTO) 0.8 % (0.0-2.0); EOSINOPHILS % (AUTO) 2.3 % (0.0-3.0); HEMATOCRIT 29.7 % (42.0-52.0); HEMOGLOBIN 9.3 G/DL (14.2-18.0); LYMPHOCYTES % (AUTO) 18.5 % (20.0-45.0); MEAN CORPUSCULAR VOLUME 90 FL (80-99); MONOCYTES % (AUTO) 12.8 % (1.0-10.0); NEUTROPHILS % (AUTO) 65.8 % (45.0-75.0); PLATELET COUNT 362 K/UL (150-450); RED BLOOD COUNT 3.31 M/UL (4.70-6.10); RED CELL DISTRIBUTION WIDTH 16.6 % (11.6-14.8); WHITE BLOOD COUNT 5.1 K/UL (4.8-10.8)
[2017-08-02] MEDS: Heparin 5000 units/ml inj SUBQ SCH ×2 (08:56→21:36)
[2017-08-02 09:01] VITALS: BP 110/57
[2017-08-02 11:37] VITALS: BP 118/69
--- NOTE | 2017-08-02 15:28 | General Surgery Progress Note ---
General Surgery-Progress Note Subjective Symptoms: improved, pain absent, tolerating diet, passing flatus, BM Objective Last 24 Hour Vital Signs Date Time Temp Pulse Resp B/P (MAP) Pulse Ox O2 Delivery O2 Flow Rate FiO2 08/02/17 11:37 98.1 72 18 118/69 96 98.1 08/02/17 09:01 98.8 80 18 110/57 98 98.8 08/02/17 04:00 97.9 76 18 105/59 97 97.9 08/02/17 00:55 97.7 08/02/17 00:25 97.7 08/02/17 00:00 97.7 76 18 115/55 96 97.7 08/01/17 20:22 98.1 08/01/17 19:41 98.1 81 19 113/60 97 98.1 08/01/17 16:00 97.9 78 18 116/57 94 97.9 I&O Intake and Output 08/01/17 08/02/17 19:00 07:00 Intake Total 1355.000 ml 475 ml Output Total 1100 ml Balance 1355.000 ml -625 ml Intake Oral 480 ml 375 ml IV Total 875.000 ml 100 ml Output Urine Total 1100 ml # Voids 5 # Bowel Movements 3 1 Wound: clean, dry Drains: none Cardiovascular: RSR Respiratory: clear Abdomen: soft, flat, non-tender, present bowel sounds Extremities: edema, no tenderness, no cyanosis Laboratory Tests Test 08/02/17 07:01 White Blood Count 5.1 K/UL (4.8-10.8) Red Blood Count 3.31 M/UL (4.70-6.10) L Hemoglobin 9.3 G/DL (14.2-18.0) L Hematocrit 29.7 % (42.0-52.0) L Mean Corpuscular Volume 90 FL (80-99) Mean Corpuscular Hemoglobin 28.2 PG (27.0-31.0) Mean Corpuscular Hemoglobin Concent 31.5 G/DL (32.0-36.0) L Red Cell Distribution Width 16.6 % (11.6-14.8) H Platelet Count 362 K/UL (150-450) Mean Platelet Volume 6.3 FL (6.5-10.1) L Neutrophils (%) (Auto) 65.8 % (45.0-75.0) Lymphocytes (%) (Auto) 18.5 % (20.0-45.0) L Monocytes (%) (Auto) 12.8 % (1.0-10.0) H Eosinophils (%) (Auto) 2.3 % (0.0-3.0) Basophils (%) (Auto) 0.8 % (0.0-2.0) Sodium Level 138 MMOL/L (136-145) Potassium Level 4.0 MMOL/L (3.5-5.1) Chloride Level 104 MMOL/L (98-107) Carbon Dioxide Level 27 MMOL/L (21-32) Anion Gap 7 mmol/L (5-15) Blood Urea Nitrogen 15 mg/dL (7-18) Creatinine 0.9 MG/DL (0.55-1.30) Estimat Glomerular Filtration Rate > 60 mL/min (>60) Glucose Level 150 MG/DL (74-106) H Calcium Level 8.5 MG/DL (8.5-10.1) Plan Problems: (1) Wound dehiscence Assessment & Plan: 66M hx of recent traumatic right AKA. now with right AKA pain and wound dehiscence. afebrile, HD stable, no leukocytosis, exam as above. CT findings: 6.4 x 2.8 x 5.5 cm collection in the posterior distal soft tissues, deep to the superficial fascia and possibly within the musculature. No enhancing rim. This could represent a routine postoperative fluid collection, but could also represent an abscess Possible abscess vs seroma/hematoma. wound with dehiscence but no purulent drainage. some serous drainage. right AKA with edema possibly dependant. ESR elevated. no leukocytosis. afebrile. can note bone exposed through dehiscence on exam today. lateral and medial aspect of wound intact but apex at area of femur stump with dehiscence. serous drainage. no signs of active infection ESR trending down. no leukocytosis. afebrile. wound stable. -no acute surgical intervention necessary. -diet as tolerated -wound care to area of dehiscence (Zeroform dressing, gauze, kerlix) -keep right AKA elevated. -can d/c from surgical standpoint. can follow up with me as an outpatient or his primary surgeon to monitor wound. dehiscence stable and no signs of infection. hopefully as wound contracts and edema subsides it heal without revision. unfortunately if dehiscence worsening will need revision. can be followed as outpatient. thank you for this consultation. will follow with recs. John Valentin August 02, 2017 15:28
[2017-08-02 15:46] VITALS: BP 107/63
--- NOTE | 2017-08-02 17:38 | Infectious Diseases Prog Note ---
Assessment/Plan Assessment/Plan ASSESSMENT AND PLAN: 1. pseudomonas right leg/stump wound infection, hematoma/seroma > abscess, elevated sed rate, less likely osteo if recent amputation - vancomycin and zosyn - day # 6 - surgery f/u noted, no surgical intervention for now - f/u labs - fevers resolved - can discharge on bactrim and levofloxacin x 5 days to complete abx course - continue local wound care 2. 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 3. Anemia. 4. Watch creatinine and vancomycin and Zosyn. 5. History of alcohol and drug abuse. 6. Pain management. 7. Neuropathy history. 8. Blindness of the right eye. 9. Neurological disease. 10. Past medical history noted. 11. No allergies. 12. Social history positive for alcohol and drug use per the records. 13. Family history noncontributory. 14. MAR was noted. 15. Case discussed with RN. 16. Continue treatment per primary and consultants. 17. Orders were noted and entered. 18. notes and records noted Subjective Constitutional: Denies: fever HEENT: Denies: congestion Respiratory: Denies: shortness of breath Cardiovascular: Denies: chest pain Gastrointestinal/Abdominal: Denies: nausea, vomiting, diarrhea Genitourinary: Reports: other - no claire; Denies: dysuria Neurologic: Denies: headache Psychiatric: Denies: depression Hematologic: Denies: bleeding Musculoskeletal: Denies: pain Allergies: Coded Allergies: No Known Allergies (Unverified , 07/27/12) Objective Vital Signs Last 24 Hour Vital Signs Date Time Temp Pulse Resp B/P (MAP) Pulse Ox O2 Delivery O2 Flow Rate FiO2 08/02/17 15:46 99.3 73 18 107/63 98 99.3 08/02/17 11:37 98.1 72 18 118/69 96 98.1 08/02/17 09:01 98.8 80 18 110/57 98 98.8 08/02/17 04:00 97.9 76 18 105/59 97 97.9 08/02/17 00:55 97.7 08/02/17 00:25 97.7 08/02/17 00:00 97.7 76 18 115/55 96 97.7 08/01/17 20:22 98.1 08/01/17 19:41 98.1 81 19 113/60 97 98.1 Height (Feet): 5 Height (Inches): 7.00 Weight (Pounds): 145 General Appearance: no acute distress HEENT: normocephalic, atraumatic, anicteric, mucous membranes moist Respiratory/Chest: lungs clear, normal breath sounds, no respiratory distress, no accessory muscle use Cardiovascular: normal rate, regular rhythm, no gallop/murmur, no JVD Abdomen: normal bowel sounds, soft, non tender, no organomegaly, non distended Genitourinary: other - no claire Extremities: no cyanosis Skin: no rash 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 No enhancing rim. This could represent a routine postoperative fluid collection, but could also represent an abscess Postsurgical changes, as described. Note that there is a soft tissue defect in the distal stump which appears to extend all the way to the tip of the tip of the stump of the femur, which could be exposed. Correlate with clinical findings Other findings as noted, including degenerative lumbosacral spondylosis Findings discussed by phone with Dr. Elmore in the emergency room at the time of interpretation Chest x-ray - Comparison: none Findings: The heart is mildly enlarged. The lungs and pleural spaces are clear. The patient is rotated to the left. Previously demonstrated borderline interstitial congestion is no longer evident Impression: No acute process Borderline cardiomegaly Microbiology Date/Time Source Procedure Growth Status 07/27/17 12:35 Blood Blood Culture - Final NO GROWTH AFTER 5 DAYS Complete 07/27/17 16:00 Nasal Nares MRSA Culture - Final NO METHICILLIN RESISTANT STAPH AUREUS... Complete 07/28/17 01:15 Urine,Clean Catch Urine Culture - Final NO GROWTH AFTER 48 HOURS Complete 07/27/17 20:54 Leg Right Gram Stain - Final Complete 07/27/17 20:54 Wound Culture - Final Pseudomonas Aeruginosa Complete Laboratory Tests Test 08/02/17 07:01 White Blood Count 5.1 K/UL (4.8-10.8) Red Blood Count 3.31 M/UL (4.70-6.10) L Hemoglobin 9.3 G/DL (14.2-18.0) L Hematocrit 29.7 % (42.0-52.0) L Mean Corpuscular Volume 90 FL (80-99) Mean Corpuscular Hemoglobin 28.2 PG (27.0-31.0) Mean Corpuscular Hemoglobin Concent 31.5 G/DL (32.0-36.0) L Red Cell Distribution Width 16.6 % (11.6-14.8) H Platelet Count 362 K/UL (150-450) Mean Platelet Volume 6.3 FL (6.5-10.1) L Neutrophils (%) (Auto) 65.8 % (45.0-75.0) Lymphocytes (%) (Auto) 18.5 % (20.0-45.0) L Monocytes (%) (Auto) 12.8 % (1.0-10.0) H Eosinophils (%) (Auto) 2.3 % (0.0-3.0) Basophils (%) (Auto) 0.8 % (0.0-2.0) Sodium Level 138 MMOL/L (136-145) Potassium Level 4.0 MMOL/L (3.5-5.1) Chloride Level 104 MMOL/L (98-107) Carbon Dioxide Level 27 MMOL/L (21-32) Anion Gap 7 mmol/L (5-15) Blood Urea Nitrogen 15 mg/dL (7-18) Creatinine 0.9 MG/DL (0.55-1.30) Estimat Glomerular Filtration Rate > 60 mL/min (>60) Glucose Level 150 MG/DL (74-106) H Calcium Level 8.5 MG/DL (8.5-10.1) Current Medications Medications (Trade) Dose Ordered Sig/Lisa Route PRN Reason Start Time Stop Time Status Last Admin Dose Admin Acetaminophen (Tylenol) 650 mg Q4H PRN ORAL Mild Pain/Temp > 100.5 07/27/17 19:00 08/26/17 18:59 Acetaminophen/ Hydrocodone Bitart ([place] 10325) 1 tab Q4H PRN ORAL Moderate Pain (Pain Scale 4-6) 07/27/17 19:00 08/03/17 18:59 08/01/17 03:36 Gabapentin (Neurontin) 300 mg THREE TIMES A DAY ORAL 07/27/17 20:00 08/26/17 19:59 08/02/17 17:01 Heparin Sodium (Porcine) (Heparin 5000 units/ml) 5,000 units EVERY 12 HOURS SUBQ 07/27/17 21:00 08/26/17 20:59 08/02/17 08:56 Morphine Sulfate (Morphine Sulfate) 4 mg Q4H PRN IVP Severe Pain (Pain Scale 7-10) 07/27/17 19:00 08/03/17 18:59 08/02/17 16:59 Ondansetron HCl (Zofran) 4 mg Q4H PRN IVP Nausea & Vomiting 07/27/17 19:00 08/26/17 18:59 Piperacillin Sod/ Tazobactam Sod 3.375 gm/Dextrose 100 ml @ 25 mls/hr EVERY 8 HOURS IVPB 07/30/17 22:00 08/04/17 21:59 08/02/17 14:57 Sodium Chloride 1,000 ml @ 75 mls/hr [id number] IV 07/27/17 20:00 08/26/17 19:59 08/02/17 08:56 Trazodone HCl (Desyrel) 50 mg BEDTIME PRN ORAL SLEEP AID 07/27/17 19:00 08/26/17 18:59 07/29/17 22:38 Vancomycin HCl (Vanco rx to dose) 1 ea DAILY PRN MISC Per rx protocol 07/27/17 21:15 08/26/17 21:14 Vancomycin HCl 1 gm/Dextrose 275 ml @ 183.333 mls/hr Q8HR@0500,1300,2100 IVPB 07/30/17 21:00 08/04/17 20:59 08/02/17 13:01 Lauren Laws MD August 02, 2017 17:38
[2017-08-02 20:00] VITALS: BP 105/52
--- NOTE | 2017-08-02 21:37 | General Progress Note ---
Assessment/Plan Problem List: (1) Wound dehiscence ICD Codes: T81.30XA - Disruption of wound, unspecified, initial encounter SNOMED: 969151762 (2) Blindness ICD Codes: H54.0 - Blindness, both eyes SNOMED: 640026810 (3) Cellulitis ICD Codes: L03.90 - Cellulitis, unspecified SNOMED: 982435959 (4) Extremity pain ICD Codes: M79.609 - Pain in unspecified limb SNOMED: 32292754 (5) Neuropathy ICD Codes: G62.9 - Polyneuropathy, unspecified SNOMED: 192419275 (6) History of right above knee amputation ICD Codes: Z89.611 - Acquired absence of right leg above knee SNOMED: 251289642 Status: stable, progressing Assessment/Plan - ID and general surgery consulted, appreciate rec's - no surgical intervention at this time - CT of right stump showing possible abscess vs. infection. no surgical interventions at this time unless wound dehiscence worsening. will continue with IV antibiotics and monitor -keep right AKA elevated. - check plain film XR of right stump to r/o osteomyelitis -- no mention of osteomyelitis but showing gas. low suspicion for osteomyelitis given recent AKA and infection. D/w general surgery and ID. - IV vancomycin and zosyn per ID - f/u wound cx, blood cultures - check UA with culture - ESR elevated. will check MRI if suspicious for osteomyelitis - pain control and supportive care - IVF CLEARED FOR DISCHARGE FROM ID AND GENERAL SURGERY. CONTINUE LEVAQUIN AND BACTRIM FOR 5 more days WITH CONTINUED WOUND CARE AT SNF. PENDING SNF PLACEMENT. DVT Prophylaxis: HSQ Code Status: Full Hospital Classification Declaration: Based on this initial evaluation, and depending on the patient's clinical course, I anticipate that this patient will require hospitalization for 2-3 days for abscess and close respiratory/ hemodynamic monitoring. Disposition: Once the patient is stable to leave the hospital, I anticipate the patient will likely be discharged to the following environment: home with vs SNF Subjective Date patient seen: August 02, 2017 Time patient seen: 12:00 Allergies: Coded Allergies: No Known Allergies (Unverified , 07/27/12) Subjective - doing well - AF, HDS - pending placement to SNF - wound clean Objective Last 24 Hour Vital Signs Date Time Temp Pulse Resp B/P (MAP) Pulse Ox O2 Delivery O2 Flow Rate FiO2 08/02/17 20:00 97.7 81 16 105/52 95 97.7 08/02/17 15:46 99.3 73 18 107/63 98 99.3 08/02/17 11:37 98.1 72 18 118/69 96 98.1 08/02/17 09:01 98.8 80 18 110/57 98 98.8 08/02/17 04:00 97.9 76 18 105/59 97 97.9 08/02/17 00:55 97.7 08/02/17 00:25 97.7 08/02/17 00:00 97.7 76 18 115/55 96 97.7 Intake and Output 08/01/17 08/02/17 19:00 07:00 Intake Total 1355.000 ml 475 ml Output Total 1100 ml Balance 1355.000 ml -625 ml Intake Oral 480 ml 375 ml IV Total 875.000 ml 100 ml Output Urine Total 1100 ml # Voids 5 # Bowel Movements 3 1 Laboratory Tests 08/02/17 07:01: White Blood Count 5.1, Red Blood Count 3.31L, Hemoglobin 9.3L, Hematocrit 29.7L , Mean Corpuscular Volume 90, Mean Corpuscular Hemoglobin 28.2, Mean Corpuscular Hemoglobin Concent 31.5L, Red Cell Distribution Width 16.6H, Platelet Count 362, Mean Platelet Volume 6.3L, Neutrophils (%) (Auto) 65.8, Lymphocytes (%) (Auto) 18.5L, Monocytes (%) (Auto) 12.8H, Eosinophils (%) (Auto ) 2.3, Basophils (%) (Auto) 0.8, Sodium Level 138, Potassium Level 4.0, Chloride Level 104, Carbon Dioxide Level 27, Anion Gap 7, Blood Urea Nitrogen 15 , Creatinine 0.9, Estimat Glomerular Filtration Rate > 60, Glucose Level 150H, Calcium Level 8.5 Height (Feet): 5 Height (Inches): 7.00 Weight (Pounds): 145 General Appearance: no apparent distress, alert EENT: PERRL/EOMI, other - blind Neck: non-tender, normal alignment, supple Cardiovascular: normal peripheral pulses, normal rate, regular rhythm Respiratory/Chest: chest wall non-tender, lungs clear, normal breath sounds Abdomen: normal bowel sounds, non tender, soft Extremities: other - R AKA with wound clean 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
[2017-08-03] VITALS: BP 112/56
[2017-08-03] MEDS: Morphine Sulfate 4mg/ml Inj IVP PRN ×2 (02:59→08:52)
[2017-08-03] MEDS: Vancomycin 1 GM in D5W 275 ML IVPB SCH ×2 (03:43→13:44)
[2017-08-03 04:00] VITALS: BP 110/59
[2017-08-03 08:00] VITALS: BP 114/54
[2017-08-03 08:20] LABS: BASOPHILS % (AUTO) 1.3 % (0.0-2.0); HEMATOCRIT 33.4 % (42.0-52.0); HEMOGLOBIN 10.4 G/DL (14.2-18.0); LYMPHOCYTES % (AUTO) 23.5 % (20.0-45.0); MEAN CORPUSCULAR VOLUME 90 FL (80-99); MONOCYTES % (AUTO) 16.4 % (1.0-10.0); NEUTROPHILS % (AUTO) 55.8 % (45.0-75.0); PLATELET COUNT 341 K/UL (150-450); RED BLOOD COUNT 3.71 M/UL (4.70-6.10); RED CELL DISTRIBUTION WIDTH 16.5 % (11.6-14.8); WHITE BLOOD COUNT 5.5 K/UL (4.8-10.8)
[2017-08-03 08:29] LABS: ANION GAP 4 mmol/L (5-15); BLOOD UREA NITROGEN 12 mg/dL (7-18); CALCIUM 8.6 MG/DL (8.5-10.1); CARBON DIOXIDE 28 MMOL/L (21-32); CHLORIDE 106 MMOL/L (98-107); CREATININE 0.9 MG/DL (0.55-1.30); POTASSIUM 4.4 MMOL/L (3.5-5.1); SODIUM 138 MMOL/L (136-145)
[2017-08-03] MEDS: Heparin 5000 units/ml inj SUBQ SCH (08:56)
[2017-08-03 12:00] VITALS: BP 109/51
--- NOTE | 2017-08-03 12:30 | General Surgery Progress Note ---
General Surgery-Progress Note Subjective Symptoms: improved Additional Comments doing well. comfortable. no n/v/f/c. tolerating diet. dressings intact. Objective Last 24 Hour Vital Signs Date Time Temp Pulse Resp B/P (MAP) Pulse Ox O2 Delivery O2 Flow Rate FiO2 08/03/17 09:22 98.2 08/03/17 08:52 98.2 08/03/17 08:00 98.2 78 18 114/54 100 98.2 08/03/17 04:00 97.7 77 18 110/59 96 97.7 08/03/17 04:00 96 Room Air 08/03/17 00:00 98.0 85 16 112/56 97 98.0 08/03/17 00:00 97 Room Air 08/02/17 21:35 97.7 08/02/17 20:00 95 Room Air 08/02/17 20:00 97.7 81 16 105/52 95 97.7 08/02/17 15:46 99.3 73 18 107/63 98 99.3 I&O Intake and Output 08/02/17 08/03/17 19:00 07:00 Intake Total 1305.0 ml 850.000 ml Output Total 1200 ml 850 ml Balance 105.0 ml 0 ml Intake Oral 480 ml IV Total 825.0 ml 850.000 ml Output Urine Total 1200 ml 850 ml # Bowel Movements 4 1 Dressing: dry Wound: clean, other - small areas of dehiscinence stable Cardiovascular: RSR Respiratory: clear Abdomen: soft, flat Extremities: no tenderness, no cyanosis Laboratory Tests Test 08/03/17 06:57 08/03/17 07:27 Sodium Level 138 MMOL/L (136-145) Potassium Level 4.4 MMOL/L (3.5-5.1) Chloride Level 106 MMOL/L (98-107) Carbon Dioxide Level 28 MMOL/L (21-32) Anion Gap 4 mmol/L (5-15) L Blood Urea Nitrogen 12 mg/dL (7-18) Creatinine 0.9 MG/DL (0.55-1.30) Estimat Glomerular Filtration Rate > 60 mL/min (>60) Glucose Level 102 MG/DL (74-106) Calcium Level 8.6 MG/DL (8.5-10.1) White Blood Count 5.5 K/UL (4.8-10.8) Red Blood Count 3.71 M/UL (4.70-6.10) L Hemoglobin 10.4 G/DL (14.2-18.0) L Hematocrit 33.4 % (42.0-52.0) L Mean Corpuscular Volume 90 FL (80-99) Mean Corpuscular Hemoglobin 28.1 PG (27.0-31.0) Mean Corpuscular Hemoglobin Concent 31.2 G/DL (32.0-36.0) L Red Cell Distribution Width 16.5 % (11.6-14.8) H Platelet Count 341 K/UL (150-450) Mean Platelet Volume 6.6 FL (6.5-10.1) Neutrophils (%) (Auto) 55.8 % (45.0-75.0) Lymphocytes (%) (Auto) 23.5 % (20.0-45.0) Monocytes (%) (Auto) 16.4 % (1.0-10.0) H Eosinophils (%) (Auto) 3.0 % (0.0-3.0) Basophils (%) (Auto) 1.3 % (0.0-2.0) Plan Problems: (1) Wound dehiscence Assessment & Plan: 66M hx of recent traumatic right AKA. now with right AKA pain and wound dehiscence. afebrile, HD stable, no leukocytosis, exam as above. CT findings: 6.4 x 2.8 x 5.5 cm collection in the posterior distal soft tissues, deep to the superficial fascia and possibly within the musculature. No enhancing rim. This could represent a routine postoperative fluid collection, but could also represent an abscess Possible abscess vs seroma/hematoma. wound with dehiscence but no purulent drainage. some serous drainage. right AKA with edema possibly dependant. ESR elevated. no leukocytosis. afebrile. can note bone exposed through dehiscence on exam today. lateral and medial aspect of wound intact but apex at area of femur stump with dehiscence. serous drainage. no signs of active infection ESR trending down. no leukocytosis. afebrile. wound stable. -no acute surgical intervention necessary. -wound care to area of dehiscence (Zeroform dressing, gauze, kerlix) -keep right AKA elevated. -can d/c from surgical standpoint. can follow up with me as an outpatient or his primary surgeon to monitor wound. dehiscence stable and no signs of infection. hopefully as wound contracts and edema subsides it heal without revision. unfortunately if dehiscence worsening will need revision. can be followed as outpatient. thank you for this consultation. will follow with recs. John Valentin Aug 03, 2017 12:30
--- NOTE | 2017-08-03 14:18 | Infectious Diseases Prog Note ---
Assessment/Plan Assessment/Plan ASSESSMENT AND PLAN: 1. pseudomonas right leg/stump wound infection, hematoma/seroma > abscess, elevated sed rate, less likely osteo if recent amputation - change to vancomycin, cefepime and flagyl - day # 7 abx - surgery f/u noted, no surgical intervention for now - f/u labs - fevers resolved - continue local wound care - d/w Dunia aPz NP about medical mgt and abx 2. 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 3. Anemia. 4. Watch creatinine and vancomycin and Zosyn. 5. History of alcohol and drug abuse. 6. Pain management. 7. Neuropathy history. 8. Blindness of the right eye. 9. Neurological disease. 10. Past medical history noted. 11. No allergies. 12. Social history positive for alcohol and drug use per the records. 13. Family history noncontributory. 14. MAR was noted. 15. Case discussed with RN. 16. Continue treatment per primary and consultants. 17. Orders were noted and entered. 18. notes and records noted Subjective Constitutional: Denies: fever HEENT: Denies: congestion Respiratory: Denies: shortness of breath Cardiovascular: Denies: chest pain Gastrointestinal/Abdominal: Denies: nausea, vomiting, diarrhea Genitourinary: Reports: other - no claire; Denies: dysuria, hematuria Neurologic: Denies: headache Psychiatric: Denies: depression Skin: Denies: rash Hematologic: Denies: bleeding Musculoskeletal: Denies: pain Allergies: Coded Allergies: No Known Allergies (Unverified , 07/27/12) Objective Vital Signs Last 24 Hour Vital Signs Date Time Temp Pulse Resp B/P (MAP) Pulse Ox O2 Delivery O2 Flow Rate FiO2 08/03/17 12:00 98.2 81 18 109/51 100 98.2 08/03/17 09:22 98.2 08/03/17 08:52 98.2 08/03/17 08:00 98.2 78 18 114/54 100 98.2 08/03/17 04:00 97.7 77 18 110/59 96 97.7 08/03/17 04:00 96 Room Air 08/03/17 00:00 98.0 85 16 112/56 97 98.0 08/03/17 00:00 97 Room Air 5/31/18 21:35 97.7 08/02/17 20:00 95 Room Air 08/02/17 20:00 97.7 81 16 105/52 95 97.7 08/02/17 15:46 99.3 73 18 107/63 98 99.3 Height (Feet): 5 Height (Inches): 7.00 Weight (Pounds): 145 General Appearance: no acute distress HEENT: normocephalic, atraumatic, anicteric, mucous membranes moist Respiratory/Chest: lungs clear, normal breath sounds, no respiratory distress, no accessory muscle use Cardiovascular: normal peripheral pulses, regular rhythm, no gallop/murmur, no JVD Abdomen: normal bowel sounds, soft, non tender, no organomegaly, non distended Genitourinary: other - no claire Extremities: no cyanosis Skin: no rash, other - right stump wound covered 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 No enhancing rim. This could represent a routine postoperative fluid collection, but could also represent an abscess Postsurgical changes, as described. Note that there is a soft tissue defect in the distal stump which appears to extend all the way to the tip of the tip of the stump of the femur, which could be exposed. Correlate with clinical findings Other findings as noted, including degenerative lumbosacral spondylosis Findings discussed by phone with Dr. Elmore in the emergency room at the time of interpretation Chest x-ray - Comparison: none Findings: The heart is mildly enlarged. The lungs and pleural spaces are clear. The patient is rotated to the left. Previously demonstrated borderline interstitial congestion is no longer evident Impression: No acute process Borderline cardiomegaly Microbiology Date/Time Source Procedure Growth Status 07/27/17 12:35 Blood Blood Culture - Final NO GROWTH AFTER 5 DAYS Complete 07/27/17 16:00 Nasal Nares MRSA Culture - Final NO METHICILLIN RESISTANT STAPH AUREUS... Complete 07/28/17 01:15 Urine,Clean Catch Urine Culture - Final NO GROWTH AFTER 48 HOURS Complete 07/27/17 20:54 Leg Right Gram Stain - Final Complete 07/27/17 20:54 Wound Culture - Final Pseudomonas Aeruginosa Complete Laboratory Tests Test 08/03/17 06:57 08/03/17 07:27 Sodium Level 138 MMOL/L (136-145) Potassium Level 4.4 MMOL/L (3.5-5.1) Chloride Level 106 MMOL/L (98-107) Carbon Dioxide Level 28 MMOL/L (21-32) Anion Gap 4 mmol/L (5-15) L Blood Urea Nitrogen 12 mg/dL (7-18) Creatinine 0.9 MG/DL (0.55-1.30) Estimat Glomerular Filtration Rate > 60 mL/min (>60) Glucose Level 102 MG/DL (74-106) Calcium Level 8.6 MG/DL (8.5-10.1) White Blood Count 5.5 K/UL (4.8-10.8) Red Blood Count 3.71 M/UL (4.70-6.10) L Hemoglobin 10.4 G/DL (14.2-18.0) L Hematocrit 33.4 % (42.0-52.0) L Mean Corpuscular Volume 90 FL (80-99) Mean Corpuscular Hemoglobin 28.1 PG (27.0-31.0) Mean Corpuscular Hemoglobin Concent 31.2 G/DL (32.0-36.0) L Red Cell Distribution Width 16.5 % (11.6-14.8) H Platelet Count 341 K/UL (150-450) Mean Platelet Volume 6.6 FL (6.5-10.1) Neutrophils (%) (Auto) 55.8 % (45.0-75.0) Lymphocytes (%) (Auto) 23.5 % (20.0-45.0) Monocytes (%) (Auto) 16.4 % (1.0-10.0) H Eosinophils (%) (Auto) 3.0 % (0.0-3.0) Basophils (%) (Auto) 1.3 % (0.0-2.0) Current Medications Medications (Trade) Dose Ordered Sig/Lisa Route PRN Reason Start Time Stop Time Status Last Admin Dose Admin Acetaminophen (Tylenol) 650 mg Q4H PRN ORAL Mild Pain/Temp > 100.5 07/27/17 19:00 08/26/17 18:59 Acetaminophen/ Hydrocodone Bitart ([place] 10/325) 1 tab Q4H PRN ORAL Moderate Pain (Pain Scale 4-6) 07/27/17 19:00 08/03/17 18:59 08/01/17 03:36 Gabapentin (Neurontin) 300 mg THREE TIMES A DAY ORAL 07/27/17 20:00 08/26/17 19:59 08/03/17 13:43 Heparin Sodium (Porcine) (Heparin 5000 units/ml) 5,000 units EVERY 12 HOURS SUBQ 07/27/17 21:00 08/26/17 20:59 08/03/17 08:56 Morphine Sulfate (Morphine Sulfate) 4 mg Q4H PRN IVP Severe Pain (Pain Scale 7-10) 07/27/17 19:00 08/03/17 18:59 08/03/17 08:52 Ondansetron HCl (Zofran) 4 mg Q4H PRN IVP Nausea & Vomiting 07/27/17 19:00 08/26/17 18:59 Piperacillin Sod/ Tazobactam Sod 3.375 gm/Dextrose 100 ml @ 25 mls/hr EVERY 8 HOURS IVPB 08/02/17 22:00 08/07/17 21:59 08/03/17 05:05 Sodium Chloride 1,000 ml @ 75 mls/hr [id number] IV 07/27/17 20:00 08/26/17 19:59 08/02/17 22:09 Trazodone HCl (Desyrel) 50 mg BEDTIME PRN ORAL SLEEP AID 07/27/17 19:00 08/26/17 18:59 07/29/17 22:38 Vancomycin HCl (Vanco rx to dose) 1 ea DAILY PRN MISC Per rx protocol 07/27/17 21:15 08/26/17 21:14 Vancomycin HCl 1 gm/Dextrose 275 ml @ 183.333 mls/hr Q8HR@0500,1300,2100 IVPB 08/02/17 21:00 08/07/17 20:59 08/03/17 13:44 Lauren Laws MD Aug 03, 2017 14:18
[2017-08-03] MEDS: HYDROcodone/Acetamin 10/325 tab ORAL PRN (14:53)
[2017-08-03 16:00] VITALS: BP 119/59
[2017-08-03] MEDS ORDERED: metroNIDAZOLE 500mg tab ORAL SCH (22:00)
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
== END 2017-08-03 17:45 | DRG 349 ==
LOC: EDBD 11:56 → EMR 12:34 → 4W 15:15 → EDBEDREQ 15:48
DX: T87.81 Dehiscence of amputation stump (principal); L03.115 Cellulitis of right lower limb; Z89.611 Acquired absence of right leg above knee; D64.9 Anemia, unspecified; H54.40 Blindness, one eye, unspecified eye; T87.43 Infection of amputation stump, right lower extremity; B96.5 Pseudomonas (aeruginosa) (mallei) (pseudomallei) as the cause of diseases classified elsewhere; G62.9 Polyneuropathy, unspecified; Y83.5 Amputation of limb(s) as the cause of abnormal reaction of the patient, or of later complication, without mention of misadventure at the time of the procedure; Z99.3 Dependence on wheelchair; Y92.9 Unspecified place or not applicable
CPT/HCPCS: 36415; 71045; 80048; 80053; 80202; 81001; 81003; 82248; 82550; 82553; 83605; 84484; 85025; 85610; 85651; 85730; 86140; 87040; 87070; 87081; 87086; 87181; 87205; 93005; 99285

== ENCOUNTER 2018-05-17 20:21 | Emergency (ER) | payer MEDICARE, OTHER ==
[~2018-05-17] VITALS: Ht 165.1 cm; Wt 81.6 kg
[~2018-05-17 20:21] MED LIST changes: +BACTRIM DS TAB1 EAC1 ORAL; +CEFAZOLIN SODIUM1 GM IJ; +DOCUSATE SODIU100 MG ORAL; +LEVAQUIN750 MG ORAL; +NORCO 5-325 TA1 EACH ORAL; +TRAZODONE HCL50 MG ORAL
[2018-05-17 20:30] VITALS: BP 148/82
--- NOTE | 2018-05-17 21:00 | NUR ---
ED Nurse Note: Blood and urine sample sent to lab.
[2018-05-17] MEDS ORDERED: Piperacillin/Tazobactam 3.375 GM in NS 110 ML IVPB ONE (21:45)
[2018-05-17] MEDS ORDERED: Bacitracin Oint UD TOPIC ONE (21:45)
[2018-05-17 22:03] LABS: APPEARANCE,URINE CLEAR; BILIRUBIN, URINE 1+ (NEGATIVE); GLUCOSE, URINE (UA) NEGATIVE (NEGATIVE); KETONES,URINE 1+ (NEGATIVE); LEUKOCYTE ESTERASE ,URINE 1+ (NEGATIVE); NITRITE,URINE NEGATIVE (NEGATIVE); PH,URINE 5 (4.5-8.0); PROTEIN,URINE 1+ (NEGATIVE); UROBILINOGEN,URINE 8 MG/DL (0.0-1.0)
[2018-05-17 22:06] LABS: COLOR,URINE AMBER
[2018-05-17 22:26] LABS: BASOPHILS % (AUTO) 1.2 % (0.0-2.0); EOSINOPHILS % (AUTO) 1.5 % (0.0-3.0); HEMOGLOBIN 14.4 G/DL (14.2-18.0); LYMPHOCYTES % (AUTO) 21.7 % (20.0-45.0); MEAN CORPUSCULAR VOLUME 84 FL (80-99); MONOCYTES % (AUTO) 14.6 % (1.0-10.0); NEUTROPHILS % (AUTO) 61.1 % (45.0-75.0); PLATELET COUNT 171 K/UL (150-450); WHITE BLOOD COUNT 6.6 K/UL (4.8-10.8)
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
[2018-05-17] MEDS ORDERED: HYDROcodone/Acetamin 5/325 tab ORAL ONE (22:30)
--- NOTE | 2018-05-17 22:30 | NUR ---
ED Nurse Note: pt was brought in by 829 from home c/o right leg pain x 4 days. Pt R leg is AKA, the suture site has samll wound, L inner leg has a scarch wound. Pt is AO x 4times, VSS, on room air no distress. CARMELITA seen Pt at bedside.
[2018-05-17 22:32] LABS: ANION GAP 8 mmol/L (5-15); BLOOD UREA NITROGEN 20 mg/dL (7-18); CALCIUM 9.5 MG/DL (8.5-10.1); CARBON DIOXIDE 30 MMOL/L (21-32); CHLORIDE 106 MMOL/L (98-107); CREATININE 0.9 MG/DL (0.55-1.30); POTASSIUM 3.2 MMOL/L (3.5-5.1); SODIUM 144 MMOL/L (136-145)
[2018-05-18 00:29] VITALS: BP 140/78
--- NOTE | 2018-05-18 00:40 | NUR ---
ED Nurse Note: Repoprt given to [facility] RN Arin. Pt is AO x 4times, VSS,on room air no distress. Food and drink provided.
[2018-05-18 00:50] VITALS: BP 140/78
--- NOTE | 2018-05-18 00:50 | NUR ---
ED Nurse Note: EMT transfer Pt to [facility], all belongings given to EMT. Pt will arrive in 30 minutes.
== END 2018-05-18 01:19 | disposition short-term general hospital (02) ==
LOC: EDBD 20:21 → EMR 21:12
DX: L03.115 Cellulitis of right lower limb (principal); L03.315 Cellulitis of perineum; F14.10 Cocaine abuse, uncomplicated; H54.40 Blindness, one eye, unspecified eye
CPT/HCPCS: 36415; 80048; 80307; 81001; 85025; 87070; 87205; 96365; 99285; J2543